=== PATIENT | female | born 1965 | race Caucasian/White ===

== ENCOUNTER 2024-07-22 18:08 | Emergency (ER) | payer OTHER, SELFPAY ==
[2024-07-22 18:20] VITALS: BP 116/77
[2024-07-22 18:33] LABS: % Basophils 0.7 % (0-2); % Eosinophils 2.1 % (0-6); % Immature Granulocytes 0.3 % (0-0.5); % Lymphocytes 19.3 % (20.5-51.1); % Monocytes 6.8 % (1.7-9.3); % Neutrophils 70.8 % (42.2-75.2); Absolute Basophils 0.1 10^3/uL (0-0.2); Absolute Eosinophils 0.2 10^3/uL (0-0.7); Absolute Lymphocytes 1.7 10^3/uL (1.2-3.4); Absolute Monocytes 0.6 10^3/uL (0.1-0.6); Absolute Neutrophils 6.4 10^3/uL (1.4-6.5); Hematocrit 37.5 % (37.0-47.0); Hemoglobin 12.2 g/dL (12.0-16.0); Mean Corp Hgb Conc. 32.5 g/dL (33.0-37.0); Mean Corpuscular Hgb 28.4 pg (27.0-31.0); Mean Corpuscular Volume 87.4 fL (81.0-99.0); Mean Platelet Volume 8.5 fL (7.4-10.4); Nucleated Red Blood Cells % 0 %; Platelet Count 268 10^3/uL (130-400); Red Blood Cell Count 4.29 10^6/uL (4.20-5.40); Red Cell Dist. Width 12.8 % (11.5-14.5)
[2024-07-22 18:43] LABS: Urine Albumin Negative (Neg - Trace); Urine Bilirubin Negative (Negative); Urine Character Clear (Clear); Urine Color Yellow; Urine Glucose Negative (Negative); Urine Ketone Negative (Negative); Urine Leukocyte 1+ (Negative); Urine Nitrite Negative (Negative); Urine Occult Blood Negative (Negative); Urine Urobilinogen Negative (Neg - 1+)
[2024-07-22 18:50] LABS: ALT (SGPT) 14 U/L (0-35); AST (SGOT) 19 U/L (14-36); Alkaline Phosphatase 81 U/L (38-126); Blood Urea Nitrogen 13 mg/dl (7-17); Calcium 8.9 mg/dl (8.4-10.2); Carbon Dioxide 27 mmol/L (22-30); Chloride 101 mmol/L (98-107); Glucose 159 mg/dl (70-99); Lipase 75 U/L (23-300); Potassium 4.2 mmol/L (3.5-5.1); Sodium 138 mmol/L (135-145); Total Bilirubin 0.4 mg/dl (0.2-1.3); eGFR > 60.00
[2024-07-22 18:54] LABS: Urine Bacteria Few (Negative); Urine Red Blood Cell 0-2 /HPF (0-2)
--- NOTE | 2024-07-22 19:48 | ED.GENMED ---
History of Present Illness
General
Chief Complaint: Flank Pain
Source: patient
Time Seen by Provider: 07/22/24 19:39
History of Present Illness
History of Present Illness:
This 59-year-old female presents to the emergency room complaining of right flank/thoracic pain. Pain began yesterday during the day. She does not recall any particular movement or event that caused the pain. She has had mild relief with
ibuprofen. She had more significant relief after taking a dose of oxycodone. She denies any urinary frequency or dysuria. She denies any chest pain or shortness of breath. There may have been some radiation of the pain around to the front of her
abdomen. No rash. Patient denies history of kidney stones. She has had her gallbladder removed.
Past History
Past History
ED Past Medical History: NIDDM and Other (Diverticulitis, sleep apnea, anxiety)
ED Past Surgical History: Cholecystectomy, and Gynecological
Social History
Tobacco: Former smoker
Alcohol: None
Drug: None
Living: with family
Phy Exam
Physical Exam
Physical Exam:
General: Awake, Alert, Oriented X3. No acute distress.
Vitals: unremarkable
Head: Atraumatic
Eyes: Pupils equal, EOMI
Throat: Airway intact, no exudates
Neck: Trachea midline
Lungs: Clear and equal b/l
Heart: Regular rate, no murmurs
Abd: Soft, Nontender, No pulsatile mass
Back: Mild CVA tenderness to percussion on the right
Neuro: Nonfocal
Skin: Warm, dry, no rash
Extremities: pulses equal b/l, no edema
Course
Orders/Labs/Results
Orders:
Orders
07/22/24 18:28
Complete Blood Count/With Diff Urgent
Comprehensive Metabolic Panel Urgent
Lipase Urgent
Urinalysis Reflex To Culture Urgent
Date Specimen was Collected: 07/22/24
Time Specimen was Collected: 18:24
Urine Microscopic Reflex Cult Urgent
Urine Culture Urgent
ARIANNA Source: U
Specimen Description:
Date Specimen was Collected: 07/22/24
Time Specimen was Collected: 18:24
07/22/24 19:47
CT Abd/pel Without Iv Or Oral Urgent
Comment:
Reason For Exam: right flank pain
07/22/24 20:45
Acetaminophen [Tylenol] 1,000 mg PO NOW STA
07/22/24 21:33
Cefdinir [Omnicef] 300 mg PO NOW STA
MetroNIDAZOLE [Flagyl] 500 mg PO NOW STA
07/22/24 21:40
Oxycodone [Roxicodone] 5 mg PO NOW STA
Abnormal Lab Results
07/22/24
18:28
MCHC 32.5 L g/dL
(33.0-37.0)
Lymphocytes % 19.3 L %
(20.5-51.1)
Creatinine 0.4 L mg/dL
(0.6-1.0)
Glucose 159 H mg/dl
(70-99)
Leukocyte Esterase Rfl 1+ A
(Negative)
Urine Bacteria (Reflex) Few A
(Negative)
07/22/24 18:28
07/22/24 18:28
Vital Signs
Initial and Last Documented VS:
Initial Vital Signs
Temp Pulse Resp BP Pulse Ox
98.0 F 74 16 116/77 99
07/22/24 18:20 07/22/24 18:20 07/22/24 18:20 07/22/24 18:20 07/22/24 18:20
Last Documented Vital Signs
Temp Pulse Resp BP Pulse Ox
98.0 F 66 16 149/69 98
07/22/24 18:20 07/22/24 21:38 07/22/24 21:38 07/22/24 21:38 07/22/24 21:38
MDM/Problems Addressed
Differential Diagnosis Includes:
Kidney stone, UTI, musculoskeletal back pain
MDM/Problems Addressed:
Patient presents with back/flank pain. Urine does not show evidence of UTI. A CT was obtained to look for kidney stone. No stone was noted but she was found to have diverticulitis by radiology. Will cover her with antibiotics. Patient stable
for discharge home follow-up with her GI doctor.
*Radiology
Radiology exam reviewed: radiology read reviewed
*Pulse Oximetry
Patient hypoxic: no
*Critical Care Note
Total Time (30-74mins, 75-104mins- exclusive of procedures): Not Applicable
ED Attending Note
-
Portions of this chart may have been created with voice recognition software.� Occasional wrong word or��sound alike� substitutions may have occurred due to the inherent limitations of voice recognition software.
Discharge Plan
Departure
Patient Disposition: Home (Routine Discharge)
Date of Disposition: 07/22/24
Time of Disposition: 21:34
Patient with high blood pressure during this ER visit?: No
Condition: Good
Discharge Problem:
Diverticulitis of colon with perforation, Back pain
Instructions: Diverticulitis
Prescriptions:
New
cefdinir 300 mg capsule
300 mg PO BID Qty: 20 0RF
metronidazole 500 mg tablet
500 mg PO TID Qty: 30 0RF
oxycodone 5 mg capsule
5 mg PO Q6H PRN (Reason: Pain) Qty: 10 0RF
No Action
glyburide-metformin 1.25 MG/250 MG tablet
1 tab PO BID
Patient Comments:
11/15/22- has not taken since she was on ozempic but patient stopped ozempic on 11/11/22 and will not contuine ozempic but will restrat glyburide/metformin
aspirin 81 mg Tablet,Delayed Release (Dr/Ec)
81 mg PO DAILY
alprazolam [Xanax] 0.25 mg Tablet
0.25 mg PO QPMPRN PRN (Reason: anxeity)
cholecalciferol (vitamin D3) [Vitamin D3] 25 mcg (1,000 unit) Tablet
25 mcg PO DAILY
magnesium oxide 400 mg magnesium Tablet
400 mg PO DAILY
Centrum Chewables 8 mg-400 mcg- 10 mcg Tablet,Chewable
1 tab PO DAILY
fluticasone furoate-vilanterol 100-25 mcg/dose Blister With Device
1 inh INHALATION DAILY
oxycodone
5 mg PO Q4H MDD 6 PRN (Reason: Moderate pain)
glycerin (adult) [Fleet Glycerin (Adult)] Suppository
1 supp PA DAILYPRN PRN (Reason: constipation) Qty: 12 0RF
magnesium hydroxide [Milk of Magnesia] 400 mg/5 mL suspension
15 ml PO HS PRN (Reason: constipation) Qty: 355 0RF
docusate sodium [Colace] 100 mg capsule
100 mg PO BID
cefdinir 300 mg capsule
300 mg PO BID Qty: 10 0RF
metronidazole 500 mg tablet
500 mg PO TID Qty: 14 0RF
Referrals:
Dary Kendall MD [Family Provider] -
Activity Restrictions/Additional Instructions:
Please follow up with your gi doctor. Return if you are not feeling better in 48 hours or begin feeling much worse.
Interventions
Interventions:
*Risk Screen - Suicide Last Done: 07/22/24 18:20
*General Assessment Last Done: 07/22/24 20:21
*Neglect/Abuse Screening Last Done: 07/22/24 20:21
ED- Fall Risk Assessment Last Done: 07/22/24 20:21
*ED COVID-19 Vaccine History Last Done: 07/22/24 20:21
*Nursing Disposition Last Done: 07/22/24 21:50
HE-Obiqyp-Kuxvbpvbkp Assessment Last Done: 07/22/24 20:23
ED-Female Genitourinary Assessment Last Done: 07/22/24 20:23
Discharge Date and Time
Discharge Date/Time: 07/22/24 21:50
Print Language: OCCITAN
[2024-07-22 20:21] VITALS: BMI 33.5
[2024-07-22] MEDS: TYLENOL 1000 MG PO (21:22)
[2024-07-22] MEDS: OMNICEF 300 MG PO (21:37)
[2024-07-22] MEDS: FLAGYL 500 MG PO (21:37)
[2024-07-22 21:38] VITALS: BP 149/69
[2024-07-22] MEDS: ROXICODONE 5 MG PO (21:43)
== END 2024-07-22 21:50 | disposition home or self-care (01) ==
LOC: EMR 18:08
PROVIDERS: Emergency Medicine; EMERGENCY PHYSICIAN Emergency Medicine; FAMILY PHYSICIAN Internal Medicine
DX: K57.20 Diverticulitis of large intestine with perforation and abscess without bleeding (principal); E11.9 Type 2 diabetes mellitus without complications; G47.30 Sleep apnea, unspecified; F41.9 Anxiety disorder, unspecified; Z87.891 Personal history of nicotine dependence; Z90.49 Acquired absence of other specified parts of digestive tract
CPT/HCPCS: 99284; 74176; 80053; 81003; 81015; 83690; 85025; 87077; 87086; 87186

== ENCOUNTER 2025-02-03 06:06 | Inpatient (IN) | payer OTHER, SELFPAY ==
[2025-02-02 20:40] VITALS: BP 155/64
[2025-02-02 23:42] VITALS: BP 142/60
[2025-02-02 23:44] VITALS: BMI 33.2
[2025-02-03] VITALS (9 sets, daily range): BP systolic 114–146; BP diastolic 52–76
[2025-02-03 00:04] LABS: Hematocrit 41.8 % (37.0-47.0); Hemoglobin 13.8 g/dL (12.0-16.0); Mean Corp Hgb Conc. 33.0 g/dL (33.0-37.0); Mean Corpuscular Volume 85.7 fL (81.0-99.0); Nucleated Red Blood Cells % 0 %; Platelet Count 293 10^3/uL (130-400); Red Cell Dist. Width 13.1 % (11.5-14.5)
[2025-02-03 01:12] LABS: ALT (SGPT) 13 U/L (0-35); AST (SGOT) 20 U/L (14-36); Albumin 4.4 g/dl (3.5-5.0); Alkaline Phosphatase 77 U/L (38-126); Blood Urea Nitrogen 9 mg/dl (7-17); Calcium 8.9 mg/dl (8.4-10.2); Carbon Dioxide 27 mmol/L (22-30); Chloride 102 mmol/L (98-107); Estimated Creatinine Clearance 121 ml/min; Glucose 157 mg/dl (70-99); Potassium 4.3 mmol/L (3.5-5.1); Sodium 137 mmol/L (135-145); Total Protein 7.5 g/dl (6.3-8.2); eGFR > 60.00
--- NOTE | 2025-02-03 01:14 | ED.GENMED ---
History of Present Illness
General
Chief Complaint: Abdominal Pain
Source: patient
Exam Limitations: none
Time Seen by Provider: 02/03/25 00:45
Nursing documentation reviewed up to this point in time: agreed with
History of Present Illness
History of Present Illness:
Note:
CHIEF COMPLAINT(S)
Left lower quadrant abdominal pain and hematochezia.
HISTORY OF PRESENT ILLNESS
The patient is a 38-year-old individual with a past medical history of diverticulitis, asthma, diabetes, anxiety, presenting with left-sided abdominal pain that has been severe enough to require analgesics over the past two days. The patient reports
a history of bright red blood in the stool mixed with mucus, which has transitioned to a maroon color. This bleeding is primarily associated with bowel movements. The symptoms initially started last year, receded, but have since recurred, with
intermittent sharp pain during defecation described as contraction-like. They also experience bladder pressure and frequent bowel movements up to six times a day, although without diarrhea. The patient recently self-initiated metronidazole
treatment, taking two doses yesterday and one dose this morning, having experienced similar symptoms in the past requiring antibiotics. She denies fevers or chills, chest pain, shortness of breath.
CHRONIC MEDICAL CONDITIONS SIGNIFICANTLY AFFECTING CARE
- History of diverticulitis
ALLERGIES
Penicillin (rash), ciprofloxacin (unspecified reaction)
REVIEW OF SYSTEMS
- Gastrointestinal: Reports bright red blood in stool mixed with mucus, significant abdominal pain, frequent but non-diarrheal bowel movements, pencil-thin stool, and recent weight loss due to decreased appetite.
- General: No fever or recent significant dietary intake beyond pudding, yogurt, and a peach due to pain.
- Integumentary: History of rash with penicillin use.
- Respiratory: No respiratory symptoms reported.
PHYSICAL EXAM
- Nursing notes reviewed and vital signs reviewed.
General: Patient is well appearing and in no acute distress; non-toxic
Skin: Warm and dry, no rashes or lesions
Head: Normocephalic, atraumatic
Eyes: Sclera non-icteric. EOMs intact.
Cardiac: Regular rate and rhythm, no murmurs
Pulm: Normal respiratory effort
Abdomen: LLQ tenderness with no rebound tenderness no guarding
Rectal: Deferred
Neuro: CN II-XII intact, no focal neurologic deficits.
Psychiatric: Appropriate mood and affect.
PROBLEM LIST
Acute:
- Left lower quadrant abdominal pain
- Hematochezia
PLAN
1. Administer antiemetic medication for nausea and pain.
2. Conduct a computed tomography scan to evaluate the abdominal pain and rule out complications such as perforation.
3. Monitor the patient for symptoms of severe diverticulitis exacerbation.
4. Continued observation and supportive care, including fluid administration.
DIFFERENTIAL DIAGNOSIS
The Differential Diagnosis includes, in no particular order and is not limited to:
1. Diverticulitis
2. Colorectal cancer
3. Inflammatory bowel disease
4. Gastrointestinal bleeding secondary to peptic ulcer
5. Ischemic colitis
6. Hemorrhoids
7. Anal fissure
8. Infectious colitis
9. Constipation-induced bowel obstruction
10. Polyps with secondary bleeding
CHART REVIEW
Reviewed discharge summary from 01/15/23, patient seen for reoccurrence of sigma diverticulitis, review discharge summary from 11/09/22, patient seen for pain. Fever and nausea was admitted for acute diverticulitis with micro perforation.
MDM/DISPOSITION
59-year-old female with a past history of reoccurring, sigmoid diverticulitis presents emergency department with concerns of bloody stools and left lower quadrant ab pain. She went for CAT scan, which revealed acute sigma diverticulitis with
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 Presented case to Dr. Gallego from colorectal surgery. For further opinion on management. Plan is to admit patient for IV antibiotics and have patient be evaluated by colorectal surgery. Patient referred for mission.
ED attending aware.
Past History
Past History
ED Past Medical History: NIDDM and Other (Diverticulitis, sleep apnea, anxiety)
ED Past Surgical History: Cholecystectomy, and Gynecological
Social History
Tobacco: Former smoker
Alcohol: None
Drug: None
Living: with family
Phy Exam
Physical Exam
Physical Exam:
see hpi
Course
Orders/Labs/Results
Orders:
Orders
02/02/25 23:41
Complete Blood Count/With Diff Urgent
02/03/25 00:35
Comprehensive Metabolic Panel Urgent
Comment: REDRAW
02/03/25 01:24
CT Abd/pelvis W Iv Cont Urgent
Comment:
Reason For Exam: LLQ pain
0.9% Sodium Chloride 1000 ml [Nss] 1,000 ml IV BOLUS
Ketorolac [Toradol] 15 mg IV NOW STA
Ondansetron Injectable [Zofran] 4 mg IV NOW STA
02/03/25 03:21
MetroNIDAZOLE 500 MG/100 ML [Flagyl 500 mg] 100 ml IV NOW
02/03/25 03:45
HYDROmorphone [Dilaudid] 0.5 mg IV NOW STA
02/03/25 03:53
Ondansetron Injectable [Zofran] 4 mg .ROUTE .STK-MED ONE
Ondansetron Injectable [Zofran] 4 mg IV NOW STA
02/03/25 05:32
Admit/Transfer Patient As Directed
Co-Sign Provider:
Level of Care: Inpatient admission
Assign to:: Medical/Surgical
Physician / Group: Kulwinder
Diagnosis: Acute Diverticulitis
Reason for Hospitalization: Acute Diverticulitis
Expected length of stay greater than two midnights?: Yes
ELOS- Estimated Length of Stay in days: 3
I certify the patient meets the requirements for IP care: Yes
PRN Pain Medication Management As Directed
May give lesser potent ordered pain med per pt: Yes
preference::
Protocol:: Medication orders for pain may be administered in a
manner that supports deferring to patient preference
when the pt is:
- Requesting an ordered lesser potent pain medication.
Least to most potent pain medications are defined
as: acetaminophen < NSAID < tramadol < opioids
(morphine, oxycodone, hydromorphone).
- Requesting a lesser dose of the same medication IF
ORDERED.
- Requesting a less intrusive route of administration
if both routes are prescribed by the provider (PO <
IV).
02/03/25 05:33
Code Status As Directed
Resuscitation Status: Full Code
02/03/25 Breakfast
NPO
Allow oral meds: Yes
Allow clear liquids: Sips of Clears
02/03/25 07:37
Acetaminophen [Tylenol] 650 mg PO Q4HPRN PRN
Albuterol Nebs [Ventolin Nebules] 2.5 mg INH R Q4HPRN PRN
Alprazolam [Xanax] 0.25 mg PO QPMPRN PRN anxeity
Dextrose 50%-Water [Dextrose 50% Syringe] 12.5 grams IV [id number] PRN
Glucagon [GlucaGen] 1 mg IM PRN PRN
HYDROmorphone [Dilaudid] 0.5 mg IV Q4HPRN PRN
Ketorolac [Toradol] 10 mg IV Q6HPRN PRN
MetroNIDAZOLE 500 MG/100 ML [Flagyl 500 mg] 100 ml IV Q12H
Ondansetron Injectable [Zofran] 4 mg IV Q6HPRN PRN
02/03/25 07:37
ColoRectal Surgery Consult Routine
Consulting Provider: Nahun Gallego
Was physician already notified: Yes
Reason for consult: Complicated Diverticulitis
Activity As Directed
Activity Level: Ambulate
Bedside Glucose Monitoring As Directed
Frequency: AC&HS
Additional Instructions:: Change to q6h if pt on TPN, tube feeding or not eating
I/O [Intake/ Output] As Directed
Frequency: Per unit guidelines
Pneumatic Compression Sleeves As Directed
Type: Knee high
Vital Signs As Directed
Frequency: Per unit guidelines
Weight As Directed
Frequency: Daily
Oxygen Therapy [O2 Therapy] [RESP] Routine
Titrate/Wean O2 to maintain O2 sat greater than (%): 94
DX Deep Vein Thrombosis Video Routine
02/03/25 10:00
Lactated Ringers [Lr] 1,000 ml IV 100 mls/hr
02/03/25 11:30
Insulin Aspart Corrective Low [Novolog Flexpen-Low Resistance] See Protocol SC AC
02/03/25 20:00
Budesonide/Formoterol 80/4.5 [Symbicort 80/4.5 Mcg Inhaler] 2 puff INH R BID
02/04/25 06:00
Basic Metabolic Panel IN AM
Complete Blood Count/No Diff IN AM
Glycohemoglobin (HgbA1c) IN AM
Abnormal Lab Results
02/02/25 02/03/25
23:41 00:35
Abs Immat Gran (auto) 0.1 H 10^3/uL
(0-0.05)
Absolute Neuts (auto) 7.2 H 10^3/uL
(1.4-6.5)
Absolute Monos (auto) 0.8 H 10^3/uL
(0.1-0.6)
Creatinine 0.5 L mg/dL
(0.6-1.0)
Glucose 157 H mg/dl
(70-99)
02/02/25 23:41
02/03/25 00:35
Vital Signs
Initial and Last Documented VS:
Initial Vital Signs
Temp Pulse Resp BP Pulse Ox
98.5 F 75 16 155/64 99
02/02/25 20:40 02/02/25 20:40 02/02/25 20:40 02/02/25 20:40 02/02/25 20:40
Last Documented Vital Signs
Temp Pulse Resp BP Pulse Ox
98.5 F 61 16 118/76 99
02/02/25 20:40 02/03/25 09:06 02/03/25 09:06 02/03/25 08:02 02/03/25 08:02
*Pulse Oximetry
SaO2: 99
Oxygen Mode of Delivery: Room air
Patient hypoxic: no
*Critical Care Note
Total Time (30-74mins, 75-104mins- exclusive of procedures): Not Applicable
ED Attending Note
-
Portions of this chart may have been created with voice recognition software.� Occasional wrong word or��sound alike� substitutions may have occurred due to the inherent limitations of voice recognition software.
Discharge Plan
Departure
Patient Disposition: Admit
Date of Disposition: 02/03/25
Time of Disposition: 03:24
Admit to: Med/Surg
Presentation/result/management discussed w/ accepting MD/DO: Hospitalist
Patient with high blood pressure during this ER visit?: Yes
Condition: Good
Discharge Problem:
Acute diverticulitis
Interventions
Interventions:
*Risk Screen - Suicide Last Done: 02/02/25 20:40
*General Assessment Last Done: 02/02/25 20:40
*Neglect/Abuse Screening Last Done: 02/02/25 20:40
*ED- Fall Risk Assessment Last Done: 02/02/25 20:40
*ED COVID-19 Vaccine History Last Done: 02/02/25 23:47
XN-Drabwq-Ujyrzipbpm Assessment Last Done: 02/03/25 04:00
[2025-02-03] MEDS: ZOFRAN 4 MG IV ×3 (01:47→16:27)
[2025-02-03] MEDS: NSS 1000 IV (01:47)
[2025-02-03] MEDS: TORADOL 15 MG IV (01:49)
[2025-02-03] MEDS: FLAGYL 500 MG 100 IV ×3 (03:48→23:57)
[2025-02-03] MEDS: DILAUDID 0.5 MG IV ×2 (03:48→15:27)
--- NOTE | 2025-02-03 05:36 | HPS.HSE ---
Family Physician
-
Family Physician: Dary Kendall MD
Chief Complaint
-
Abd Pain
History of Present Illness
Patient is a 59y F with PMH significant for DM-II, asthma and recurrent sigmoid diverticulitis who presents to ED complaining of lower abdominal pain. Patient reports multiple prior episodes of diverticulitis. Has discussed potential surgical
intervention in the past. Patient reports issues with intermittent BRBPR in small volumes over the past few weeks. Over the past several days she has had pain with defecation and lower abdominal pain. Pain seems to improve somewhat after bowel
movement. No fevers / chills. No N/V. She reports about 6 bowel movements per day of widely varying caliber and volume.
She had more severe pain this evening and presented to the ED for further evaluation.
Patient denies any vaginal discharge, bleeding, stool, etc.
Medical History
Past Medical History
Past Medical History: Reports Other
Additional Past Medical History:
DM-II
UMA not on CPAP
Recurrent Sigmoid Diverticulitis
Obesity
Asthma
Past Surgical History: Reports Other
Additional Past Surgical History:
Cholecystectomy
Hysterectomy
Social History
Tobacco: Former Smoker (Quit smoking many years ago.)
Alcohol: None
Drug: None
Family History
Family History: Not pertinent
Allergies / Home Medications
Allergies reflects when Allergies were last updated in [facility].
Home Medications with original date entered in [facility]
Allergy/Medication List:
Allergies
Allergy/AdvReac Type Severity Reaction Status Date / Time
ciprofloxacin (From Cipro) Allergy Unknown Verified 07/22/24 18:23
levofloxacin (From Levaquin) Allergy palpitation Verified 07/22/24 18:23
s
Penicillins Allergy rash as a Verified 07/22/24 18:23
child;
tolerated
ceftriaxone
& cefdinir
Home Medications
glyburide 1.25 mg-metformin 250 mg tablet 1 tab PO BID Diabetes 08/03/19
alprazolam 0.25 mg tablet (Xanax) 0.25 mg PO QPMPRN PRN anxeity 11/15/22
cholecalciferol (vitamin D3) 25 mcg (1,000 unit) tablet (Vitamin D3) 25 mcg PO DAILY Supplement 11/15/22
fluticasone furoate 100 mcg-vilanterol 25 mcg/dose inhalation powder 1 inh inhalation DAILY Lung/breathing issues 11/15/22
magnesium oxide 400 mg PO DAILY Supplement 11/15/22
wcjzauck-dldernpp-pyon 8 mg-folic ac 400 mcg-vit K 10 mcg chew tablet (Centrum Chewables) 1 tab PO DAILY Supplement 11/15/22
glycerin (adult) (Fleet Glycerin (Adult) rectal suppository) 1 supp DC DAILYPRN PRN constipation #12 ea 11/16/22
magnesium hydroxide 400 mg/5 mL oral suspension (Milk of Magnesia) 15 ml PO HS PRN constipation #355 mL 11/16/22
oxycodone 5 mg capsule 5 mg PO Q6H PRN Pain #10 caps 07/22/24
Review of Systems
-
History Source: Patient
A 12 point ROS was completed and negative except as noted: Yes
Constitutional: Reports Fatigue; Denies Fever or Chills
Respiratory: Denies Cough or Trouble Breathing
Cardiac: Denies Chest Pain or Palpitations
Abdomen/GI: Reports Abdominal Pain and Bloody Stools; Denies Nausea or Vomiting
: Denies Dysuria or Frequency
Musculoskeletal: Denies Joint Pain or Edema
Neurological: Denies Dizzy or Headache
Physical Exam
Vital Signs
Vital Signs
Temp Pulse Resp BP Pulse Ox
98.5 F 75 16 126/63 96
02/02/25 20:40 02/02/25 20:40 02/02/25 20:40 02/03/25 03:00 02/03/25 03:00
Physical Exam
General: Other (59y F in no acute distress.)
HEENT: Moist mucous membranes, PERRLA and Other (Thick neck.)
Respiratory: Clear; No Wheezes, Rales or Rhonchi
Cardiac: S1/S2 and Regular Rhythm; No Murmur
GI: Soft, Non Distended, Normal Bowel Sounds and Other (Suprapubic tenderness without rebound / guarding.)
Musculoskeletal: No Clubbing, No Cyanosis and No Edema
Neuro: AO x 3
Laboratory Results
-
02/02/25 23:41
02/03/25 00:35
Laboratory Results
Total Bilirubin 0.8 mg/dl (0.2-1.3) 02/03/25 00:35
AST 20 U/L (14-36) 02/03/25 00:35
ALT 13 U/L (0-35) 02/03/25 00:35
Alkaline Phosphatase 77 U/L (38-126) 02/03/25 00:35
Impression/Plan
-
A/P: Patient is a 59y F with PMH significant for DM-II, asthma and obesity who presents to ED complaining of abdominal pain.
Acute Diverticulitis +/- Colovaginal Fistula
- Admit for further evaluation and treatment.
- IV abx with ceftriaxone / metronidazole given allergies.
- Colorectal Surgery evaluation for additional recommendations.
- No vaginal stooling, discharge, etc.
- Follow fever curve, pain, etc.
- Supportive care with IVFs, pain control, etc.
DM-II
- Stable. Hold PO medications.
- Follow glucose and cover with SSI as needed.
- Update A1C.
Asthma without Acute Exacerbation
- Stable. Continue home inhaler regimen.
- Albuterol PRN.
Obesity due to excess calories
- Affects all aspects of care.
- Encourage healthy diet and increased activity with goal of weight loss.
DVT Prophylaxis: SCDs
Code Status: Full
--- NOTE | 2025-02-03 07:17 | W.PN.HOSP.TC ---
Addendum entered and electronically signed by Ruy Reddy MD 02/04/25 13:40:
Acute diverticulitis
- IV antibiotics with Rocephin and Flagyl
- Clear liquid diet
- Advance as tolerated
- Colorectal surgery following
Diabetes
- Accu-Chek
- Sliding scale
- Goal blood glucose 140-180
- Carb controlled diet
Original Note:
Today's Communication/Plan
-
- Continue antibiotics
- IV fluids, pain control
- Advance diet to clear liquids
- Overnight pulse oximetry measurement
Assessment / Plan
Assessment / Plan
Patient is a 59y F with PMH significant for recurrent diverticulitis, DM-II, asthma, UMA, obesity who p/w LLQ abdominal pain most concerning for acute diverticulitis
#Acute Diverticulitis c/b intramural abscess and possible developing colovaginal fistula
- CT A/P read is acute diverticulitis and developing colovaginal fistula
- Colorectal surgery consulted and recommend nonoperative management at this time
- IV abx with ceftriaxone 1000mg q24h / metronidazole 500mg q12h
- IV Fluids: LR 100 mL/hr q10h
- Pain control: acetaminophen 650mg PO q4h prn, toradol 10mg IV q6h prn, dilaudid 0.5mg iv q4h prn
- DVT ppx: SCDs for now
- Diet: clear liquids diet, and patient can self-advance diet to full liquid, and then onto low residue diet as tolerated
# PMH of UMA
- order overnight pulse oximetry.
- patient reports that she does not use CPAP
# DM-II
- Stable. Hold PO medications.
- Follow glucose and cover with SSI as needed.
- Update A1C.
# Asthma without Acute Exacerbation
- Stable. Continue home inhaler regimen.
- Albuterol PRN.
# Obesity due to excess calories
- Affects all aspects of care.
- Encourage healthy diet and increased activity with goal of weight loss.
DVT Prophylaxis: SCDs
Diet: clear liquids diet, and patient can self-advance diet to full liquid, and then onto low residue diet as tolerated
Code Status: Full
Anticipated Discharge: > 48 hours
Subjective/Interval History
-
Date of Service: February 03, 2025
Patient is 59 yo F with PMH of recurrent sigmoid diverticulitis, DM-II, asthma who came in because of LLQ pain that did not resolve. Over the past several months, she reports that she experiences abdominal pain and then has a bowel movement of
mucoid/bloody/maroon stool that resolves the pain. However, a few days ago, she experienced LLQ and lower middle quadrant pain that has not resolved after having a bowel movement. For that reason, she presented to the hospital
This morning, she is feeling better. She was started on antibiotics. Colorectal surgery has been consulted.
Objective Data
-
Labs:
Laboratory Results
02/02/25 02/03/25
23:41 00:35
WBC 10.6
Hgb 13.8
Hct 41.8
Plt Count 293
Sodium Cancelled 137
Potassium Cancelled 4.3
Chloride Cancelled 102
Carbon Dioxide Cancelled 27
BUN Cancelled 9
Creatinine Cancelled 0.5 L
Glucose Cancelled 157 H
Calcium Cancelled 8.9
Total Bilirubin Cancelled 0.8
AST Cancelled 20
ALT Cancelled 13
Alkaline Phosphatase Cancelled 77
CT AP with IV contrast
INDICATION: 59-year-old with left lower quadrant abdominal pain. History of diverticulitis.
TECHNIQUE: CT examination of the abdomen and pelvis was performed following the administration of nonionic intravenous contrast. Oral contrast was not administered. Coronal and sagittal reformatted images were obtained. Automatic exposure control
radiation dose reduction technology was utilized.
COMPARISON: CT from 07/22/2024
FINDINGS:
LOWER CHEST: Lung bases clear. No pleural effusion. Small hiatal hernia.
LIVER: Within normal limits.
GALLBLADDER: Surgically absent.
BILE DUCTS: Within normal limits.
PANCREAS: Within normal limits.
SPLEEN: Within normal limits.
ADRENALS: Within normal limits.
KIDNEYS/URETERS: Within normal limits.
BOWEL: No obstruction. Small duodenal diverticulum. Unremarkable terminal ileum and appendix. Moderate amount of stool within the colon with moderate sigmoid diverticulosis. The distal sigmoid is inflamed with wall thickening and pericolonic
inflammatory stranding. There is a small intramural abscess measuring 19 mm (image 72, series 201). Inflammatory/enhancing soft tissue abuts the vaginal cuff with lack of a clear fat plane raising concern for developing colovaginal fistula.
PERITONEUM: No ascites or free air.
REPRODUCTIVE: See above. No gas identified within the vagina. No pelvic free fluid. No free air.
BLADDER: Within normal limits.
VESSELS: Non-aneurysmal abdominal aorta.
RETROPERITONEUM: No retroperitoneal or pelvic lymphadenopathy.
ABDOMINAL WALL: Within normal limits.
BONES: No suspicious lesions. Moderate central canal stenosis at L4-5. Partially imaged intramedullary sarah and cannulated screw within the left femoral head. Unchanged mild deformity involving the inferior endplate of L1.
IMPRESSION:
1. Acute diverticulitis of the distal sigmoid colon. Small intramural abscess measuring 19 mm. Inflammatory changes extend inferiorly and abuts the vaginal cuff raising concerning for developing colovaginal fistula.
2. Additional findings above.
A preliminary interpretation was provided by [facility] teleradiology service. The above report agrees with the initial interpretation.
Vital Signs:
Vital Signs
Temp Pulse Resp BP Pulse Ox
98.5 F 66 18 126/59 93
02/02/25 20:40 02/03/25 06:18 02/03/25 06:18 02/03/25 06:00 02/03/25 06:18
Review of Systems
-
History Source: Patient
Constitutional: Reports No Symptoms
EENT: Reports No Symptoms Reported
Respiratory: Reports No Symptoms
Cardiac: Reports No Symptoms
Abdomen/GI: Reports Abdominal Pain and Bloody Stools
Genitourinary: Reports No Symptoms
Musculoskeletal: Reports No Symptoms
Skin: Reports No Symptoms
Neuro: Reports No Symptoms
Physical Exam
-
General: No Apparent Distress
HEENT: Normocephalic and Atraumatic
Respiratory: Clear to Auscultation
Cardiac: Regular Rhythm and Murmur (1/6 systolic murmur loudest near right upper parasternal border)
GI: Tender (LLQ, lower middle quadrant)
Musculoskeletal: Other (no lower extremity edema on my exam)
Skin: Warm and Dry
Neuro: AO x 3
Psych: Calm
[2025-02-03] MEDS: ROCEPHIN 1000 MG IV (09:30)
[2025-02-03] MEDS: STERILE WATER FOR INJECTION 10 ML IV (09:31)
[2025-02-03] MEDS: FLUSH (NSS) 1 FLUSH IV (09:31)
[2025-02-03] MEDS: LR 1000 IV ×2 (09:31→20:04)
[2025-02-03] MEDS: FLUSH (NSS) 10 FLUSH IV (09:32)
[2025-02-03] MEDS: TORADOL 10 MG IV ×2 (09:36→22:21)
--- NOTE | 2025-02-03 09:50 | CON.CRS ---
Consultation
-
Date/Time Consultation Requested: 02/03/2025, 07:37
Date/Time Consultation Performed: 02/03/2025, 8:45
Requesting Provider: Terry Miramontes DO
Performing Provider: Yandel Llanos MD
Reason for Consultation: diverticulitis
Medical History
-
Chief Complaint: abdominal pain
History of Present Illness:
59-year-old female with a past medical history of sigmoid diverticulitis, presents to [facility] emergency department complaining of lower abdominal pain over the past several days. She has had intermittent cramping so the past several weeks
but it became constant in nature 2 days ago. She states she has noticed some blood in her stool mixed with mucus as well. Denies constipation or diarrhea. She does have some pressure urinating but no pain or blood when urinating. Denies any
vaginal discharge. She has had diverticulitis in the past and was admitted in 2022 due to [address] Gallego saw her in consultation. She was found to have sigmoid diverticulitis and was treated with IV antibiotics. She has been
admitted to [facility] in the past for diverticulitis and hospitalized 3 times before. Her last colonoscopy was by Dr. Angel in [facility] about 2 years ago which showed polyps.
In the ER her WBC is 10.6. She remains afebrile. CT of the abdomen and pelvis showed wall thickening of the sigmoid colon with possible colovaginal fistula concerning for complicated diverticulitis. Given these findings, we have been consulted
for surgical opinion.
Past Medical History
Past Medical History: Other (DM II, UMA, diverticulitis, obesity, asthma)
Past Surgical History: Cholecystectomy, and Gynecological (hysterectomy)
Social History
Tobacco: Former Smoker
Alcohol: None
Drug: None
Family History
Family History: Reviewed & Not Pertinent
Allergies / Home Medications
Allergy/AdvReac Type Severity Reaction Status Date / Time
ciprofloxacin (From Cipro) Allergy Unknown Verified 07/22/24 18:23
levofloxacin (From Levaquin) Allergy palpitation Verified 07/22/24 18:23
s
Penicillins Allergy rash as a Verified 07/22/24 18:23
child;
tolerated
ceftriaxone
& cefdinir
�Medication �Instructions �Recorded �Confirmed �Type
glyburide 1.25 mg-metformin 250 mg 1 tab PO BID Diabetes 08/03/19 02/03/25 History
tablet
alprazolam 0.25 mg tablet (Xanax) 0.25 mg PO HS 11/15/22 02/03/25 History
cholecalciferol (vitamin D3) 25 25 mcg PO DAILY Supplement 11/15/22 02/03/25 History
mcg (1,000 unit) tablet (Vitamin
D3)
fluticasone furoate 100 1 inh inhalation R DAILYPRN PRN SOB 11/15/22 02/03/25 History
mcg-vilanterol 25 mcg/dose
inhalation powder (Breo Ellipta)
magnesium oxide 400 mg PO DAILY Supplement 11/15/22 02/03/25 History
acetaminophen 325 mg tablet 650 mg PO Q6HPRN PRN MILD PAIN 02/03/25 02/03/25 History
(Tylenol)
oxycodone-acetaminophen 5 mg-325 1 tab PO DAILYPRN PRN SEVERE PAIN 02/03/25 02/03/25 History
mg tablet
therapeutic multivitamin 1 tab PO DAILY 02/03/25 02/03/25 History
Review of Systems
-
History Source: Patient
Abdomen/GI: Abdominal Pain and Bloody Stools
: Other (pressure while urinating)
A 10 point review of systems was completed, and was negative except as per HPI.
Physical Exam
Vital Signs
Temp 98.5 F 02/02/25 20:40
Pulse 61 02/03/25 09:06
Resp Rate 16 02/03/25 09:06
Blood pressure 118/76 02/03/25 08:02
SaO2 99 02/03/25 08:02
02/02/25 02/03/25 02/04/25
06:59 06:59 06:59
Actual Weight 99 kg
Body Mass Index (BMI) 33.2
Lab Results / Allergies
02/02/25 23:41
02/03/25 00:35
WBC 10.6 10^3/uL (4.8-10.8) 02/02/25 23:41
Hgb 13.8 g/dL (12.0-16.0) 02/02/25 23:41
Hct 41.8 % (37.0-47.0) 02/02/25 23:41
Plt Count 293 10^3/uL (130-400) 02/02/25 23:41
Abs Immat Gran (auto) 0.1 10^3/uL (0-0.05) H 02/02/25 23:41
Neutrophils % 68.5 % (42.2-75.2) 02/02/25 23:41
Allergy/AdvReac Type Severity Reaction Status Date / Time
ciprofloxacin (From Cipro) Allergy Unknown Verified 07/22/24 18:23
levofloxacin (From Levaquin) Allergy palpitation Verified 07/22/24 18:23
s
Penicillins Allergy rash as a Verified 07/22/24 18:23
child;
tolerated
ceftriaxone
& cefdinir
Physical Exam
General: Well Developed and No Apparent Distress
GI: Soft, Non Distended and Tender (mild suprapubic)
Skin: Warm and Dry
Neuro: AO x 3
Data Reviewed
-
CT Scan: Image Personally Visualized and interpreted, Report Reviewed by me, Discussed with Physician and Discussed with Patient
Labs: Labs Reviewed by me, Discussed with Physician and Discussed with Patient
Old Records: Reviewed
Assessment / Plan
-
Assessment: 59-year-old female with multiple attacks of diverticulitis in the past presents to [facility] with 2 days of abdominal pain and found to have sigmoid diverticulitis and a possible colovaginal fistula on CT
Plan:
- Continue n.p.o. with IV fluids
- Continue IV antibiotics
- No plans for surgery at this time
- Will need eventual colonoscopy
- Eventually will need to reassess the fistula in the future as the oral contrast did not make it down to that area of colon. This can be done as an outpatient after this hospitalization.
--- NOTE | 2025-02-03 10:19 | CM ---
CM reviewed chart and met with pt bedside in ED. Pt lives alone but has been staying with her parents to assist them. Their address is [address] [place], [place] [address] [place] [address].
Independent in ADLs, personal care and ambulation at baseline. Uses cane for ambulation. NO other DME.
Confirms prescription coverage.
No hx VN, has been to [facility] in past.
PCP: Dary Kendall
Pharmacy: [facility]
Anticipate discharge home, watch for needs.
[2025-02-03] MEDS: FLUSH (NSS) IV (11:21)
[2025-02-03 11:47] LABS: Glucose - Point of Care 154 mg/dl (70-99)
[2025-02-03 16:42] LABS: Glucose - Point of Care 148 mg/dl (70-99)
[2025-02-03] MEDS: NOVOLOG FLEXPEN-LOW RESISTANCE SC (16:45)
[2025-02-03 21:39] LABS: Glucose - Point of Care 123 mg/dl (70-99)
[2025-02-03] MEDS: XANAX 0.25 MG PO (22:13)
[2025-02-04] MEDS: LR 1000 IV ×2 (06:11→16:59)
[2025-02-04 06:12] VITALS: BMI 33.6
[2025-02-04 07:48] VITALS: BP 125/67
[2025-02-04 08:01] LABS: Glucose - Point of Care 128 mg/dl (70-99)
[2025-02-04] MEDS: NOVOLOG FLEXPEN-LOW RESISTANCE SC ×3 (08:03→16:58)
[2025-02-04 08:07] LABS: Hematocrit 34.7 % (37.0-47.0); Hemoglobin 11.3 g/dL (12.0-16.0); Mean Corp Hgb Conc. 32.6 g/dL (33.0-37.0); Mean Corpuscular Volume 87.4 fL (81.0-99.0); Platelet Count 255 10^3/uL (130-400); Red Cell Dist. Width 13.0 % (11.5-14.5)
--- NOTE | 2025-02-04 08:07 | W.PN.HOSP.TC ---
Addendum entered and electronically signed by Ruy Reddy MD 02/04/25 13:41:
Acute diverticulitis
- IV antibiotics with Rocephin and Flagyl
- Clear liquid diet
- Advance as tolerated
- Colorectal surgery following
- Outpatient elective colectomy with Colorectal surgery follow up/eval
Diabetes
- Accu-Chek
- Sliding scale
- Goal blood glucose 140-180
- Carb controlled diet
Original Note:
Today's Communication/Plan
-
- continue abx
- full liquid diet, can advance as tolerated
Assessment / Plan
Assessment / Plan
Patient is a 59y F with PMH significant for recurrent diverticulitis, DM-II, asthma, UMA, obesity who p/w LLQ abdominal pain most concerning for acute diverticulitis
#Acute Diverticulitis c/b intramural abscess and possible developing colovaginal fistula
- CT A/P read is acute diverticulitis and developing colovaginal fistula
- Colorectal surgery consulted and recommend nonoperative management at this time
- VS stable.
- Continue IV abx with ceftriaxone 1000mg q24h / metronidazole 500mg q12h (day 2 of antibiotics, started 02/03 around midnight).
- IV Fluids: LR 100 mL/hr q10h
- Pain control: acetaminophen 650mg PO q4h prn, toradol 10mg IV q6h prn, dilaudid 0.5mg iv q4h prn. last dilaudid was 3pm yesterday.. toradol at 10pm last night.
- DVT ppx: SCDs for now
- Diet: per CRS, advanced to full liquid diet.
- Will need outpatient colonoscopy after discharge and assessment of the possible developing fistula
# PMH of UMA
- overnight pulse oximetry was not done. she denies recalling any apneic events.
- patient reports that she does not use CPAP at home
# DM-II
- Stable. Hold PO medications.
- Follow glucose and cover with SSI as needed.
- Update A1C.
# Asthma without Acute Exacerbation
- Stable. Continue home inhaler regimen.
- Albuterol PRN.
# Obesity due to excess calories
- Affects all aspects of care.
- Encourage healthy diet and increased activity with goal of weight loss.
DVT Prophylaxis: SCDs. Colorectal surgery recommended lovenox ppx, but SCDs are ordered
Diet: full liquids diet, and patient can self-advance diet to low residue diet as tolerated
Code Status: Full
Anticipated Discharge: 24 - 48 hours
Subjective/Interval History
-
Date of Service: February 04, 2025
had bowel movements, no blood that she can see. feels that her abdominal pain is improving.
advanced her diet, feels tolerating well.
overnight, denies any apneic episodes, reports that she did not have continuous pulsox monitoring
Objective Data
-
Labs:
Laboratory Results
02/04/25
06:52
WBC 7.0
Hgb 11.3 L
Hct 34.7 L
Plt Count 255
Sodium Pending
Potassium Pending
Chloride Pending
Carbon Dioxide Pending
BUN Pending
Creatinine Pending
Glucose Pending
Calcium Pending
Vital Signs:
Vital Signs
Temp Pulse Resp BP Pulse Ox
97.6 F 61 14 125/67 100
02/04/25 07:48 02/04/25 07:48 02/04/25 07:48 02/04/25 07:48 02/04/25 07:48
Review of Systems
-
History Source: Patient
EENT: Reports No Symptoms Reported
Respiratory: Reports No Symptoms
Cardiac: Reports No Symptoms
Abdomen/GI: Reports Abdominal Pain (improved)
Musculoskeletal: Reports No Symptoms
Skin: Reports No Symptoms
Neuro: Reports No Symptoms
Physical Exam
-
General: No Apparent Distress
HEENT: Normocephalic and Atraumatic
Respiratory: Clear to Auscultation
GI: Other (improved tenderness to palpation in LLQ)
Musculoskeletal: Other (trace REINALDO)
Skin: Warm
Neuro: Awake and Alert
Psych: Calm
[2025-02-04 08:12] LABS: Blood Urea Nitrogen 6 mg/dl (7-17); Calcium 8.3 mg/dl (8.4-10.2); Carbon Dioxide 28 mmol/L (22-30); Chloride 107 mmol/L (98-107); Estimated Creatinine Clearance 122 ml/min; Glucose 121 mg/dl (70-99); Potassium 4.4 mmol/L (3.5-5.1); Sodium 139 mmol/L (135-145); eGFR > 60.00
[2025-02-04] MEDS: FLUSH (NSS) 1 FLUSH IV (09:17)
[2025-02-04] MEDS: FLUSH (NSS) 10 FLUSH IV (09:18)
[2025-02-04] MEDS: STERILE WATER FOR INJECTION 10 ML IV (09:19)
[2025-02-04] MEDS: ROCEPHIN 1000 MG IV (09:19)
[2025-02-04] MEDS: TORADOL 10 MG IV ×2 (09:19→16:58)
[2025-02-04] MEDS: FLUSH (NSS) IV (09:29)
[2025-02-04 09:44] LABS: Glycohemoglobin (HgbA1c) 7.4 % (4.0-5.6)
--- NOTE | 2025-02-04 10:28 | W.PN.CRS1 ---
Today's Communication / Plan
-
fulls
continue IV antibiotics
no plans for surgery
Assessment/Plan
-
Assessment: 59-year-old female with multiple attacks of diverticulitis in the past presents to [facility] with 2 days of abdominal pain and found to have sigmoid diverticulitis and a possible colovaginal fistula on CT
Plan:
- Advance to full liquids. Okay for low residue diet later if tolerates fulls.
- Continue IV antibiotics
- No plans for surgery at this time
- Will need eventual colonoscopy
- Eventually will need to reassess the fistula in the future as the oral contrast did not make it down to that area of colon. This can be done as an outpatient after this hospitalization.
- OOB as tolerated
Subjective Data
Subjective Data
Date of Service: February 04, 2025
Patient states she is feeling better today. She denies nausea or vomiting. She had a bowel movement yesterday. She is hungry.
Objective Data
-
Vital Signs
Temp Pulse Resp BP Pulse Ox
97.6 F 61 14 125/67 100
02/04/25 07:48 02/04/25 07:48 02/04/25 07:48 02/04/25 07:48 02/04/25 07:48
Intake & Output
02/03/25 02/04/25 02/05/25
06:59 06:59 06:59
Other:
Number of approximated MODERATE 1
amounts of urine
Lab Results
02/04/25 06:52
02/04/25 06:52
Physical Exam
-
General: No Acute Distress and AOx3
Abdomen: Soft, Non Distended and Tender (mild suprapubic)
[2025-02-04] MEDS: FLAGYL 500 MG 100 IV ×2 (11:17→23:44)
--- NOTE | 2025-02-04 11:26 | CM ---
Patient seen at bedside
cont antibiotics
seen by colorectal
PLAN: Home, no needs anticipated
[2025-02-04 12:03] LABS: Glucose - Point of Care 144 mg/dl (70-99)
[2025-02-04 15:24] VITALS: BP 124/56
[2025-02-04 16:35] LABS: Glucose - Point of Care 156 mg/dl (70-99)
[2025-02-04 21:16] LABS: Glucose - Point of Care 154 mg/dl (70-99)
[2025-02-04] MEDS: XANAX 0.25 MG PO (22:48)
[2025-02-04 23:00] VITALS: BP 140/56
[2025-02-05] MEDS: TORADOL 10 MG IV (01:17)
[2025-02-05 07:00] VITALS: BP 137/64
--- NOTE | 2025-02-05 07:03 | W.PN.HOSP.TC ---
Addendum entered and electronically signed by Ruy Reddy MD 02/06/25 15:20:
finish antibiotic course
outpt gi and surggery follow up
dc home
Original Note:
Today's Communication/Plan
-
- Discharge to home today
- PO cefdinir 300mg bid for 8 more days (02/12/2025, 10 day total course)
- PO metronidazole 500mg bid for 8 more days (last day 02/12/2025, 10 day total course)
- follow-up colorectal surgery
- Home medications as directed
Assessment / Plan
Assessment / Plan
Patient is a 59y F with PMH significant for recurrent diverticulitis, DM-II, asthma, UMA, obesity who p/w LLQ abdominal pain most concerning for acute diverticulitis
#Acute Diverticulitis
- CT A/P read is acute diverticulitis and possible colovaginal fistula
- Tolerating low residue diet
- Clinical exam much improved
- Transition to PO cefdinir 300mg, bid for 8 more days and PO metronidazole 500mg, bid for 8 more days.
- Will need outpatient colonoscopy after discharge and assessment of the possible developing fistula
- Outpatient follow-up with Colorectal surgery, GI
# PMH of UMA
- overnight pulse oximetry was not done. she denies recalling any apneic events.
- patient reports that she does not use CPAP at home
# DM-II
- Can resume home medications as directed
# Asthma without Acute Exacerbation
- Albuterol PRN.
# Obesity due to excess calories
- Affects all aspects of care.
- Encourage healthy diet and increased activity with goal of weight loss.
disposition: discharge today
Code Status: Full
Anticipated Discharge: Today
Subjective/Interval History
-
Date of Service: February 05, 2025
bowel movements with blood, abominal pain significantly improved. tolerating full liquids.
exam: soft, no tenderness to palpation in abdomen
she is amenable to discharge today
Objective Data
-
Labs:
Laboratory Results
02/05/25
06:00
WBC Pending
Hgb Pending
Hct Pending
Plt Count Pending
Sodium Pending
Potassium Pending
Chloride Pending
Carbon Dioxide Pending
BUN Pending
Creatinine Pending
Glucose Pending
Calcium Pending
VSS, afebrile
WBC down to 6.1 from 10.6
Hgb 11.3
Vital Signs:
Vital Signs
Temp Pulse Resp BP Pulse Ox
98.0 F 54 16 140/56 98
02/04/25 23:00 02/04/25 23:00 02/04/25 23:00 02/04/25 23:00 02/04/25 23:00
I&O
02/04/25 02/05/25 02/06/25
06:59 06:59 06:59
Intake Total 1200 / 1200
Balance 1200 / 1200
Review of Systems
-
History Source: Patient
Constitutional: Reports No Symptoms
EENT: Reports No Symptoms Reported
Respiratory: Reports No Symptoms
Cardiac: Reports No Symptoms
Abdomen/GI: Reports Other (blood in BM but much improved)
Genitourinary: Reports No Symptoms
Musculoskeletal: Reports No Symptoms
Skin: Reports No Symptoms
Neuro: Reports No Symptoms
Physical Exam
-
General: No Apparent Distress
HEENT: Normocephalic and Atraumatic
Respiratory: Clear to Auscultation
Cardiac: Regular Rhythm and Other (no murmurs)
GI: Nontender
Musculoskeletal: Other (trace REINALDO)
Skin: Warm and Dry
Neuro: Awake and Alert
Psych: Calm
[2025-02-05 07:33] LABS: Hematocrit 34.6 % (37.0-47.0); Hemoglobin 11.3 g/dL (12.0-16.0); Mean Corp Hgb Conc. 32.7 g/dL (33.0-37.0); Mean Corpuscular Volume 86.3 fL (81.0-99.0); Platelet Count 233 10^3/uL (130-400); Red Cell Dist. Width 12.7 % (11.5-14.5)
[2025-02-05 07:41] LABS: Glucose - Point of Care 147 mg/dl (70-99)
[2025-02-05] MEDS: NOVOLOG FLEXPEN-LOW RESISTANCE SC (07:58)
[2025-02-05 08:31] LABS: Blood Urea Nitrogen 6 mg/dl (7-17); Calcium 8.7 mg/dl (8.4-10.2); Carbon Dioxide 26 mmol/L (22-30); Chloride 107 mmol/L (98-107); Estimated Creatinine Clearance 122 ml/min; Glucose 130 mg/dl (70-99); Potassium 4.2 mmol/L (3.5-5.1); Sodium 138 mmol/L (135-145); eGFR > 60.00
--- NOTE | 2025-02-05 09:48 | CM ---
Patient seen at bedside
discharge today per hospitalist
IMM n/a
no needs
PLAN: Home, no needs
drove self
[2025-02-05] MEDS: STERILE WATER FOR INJECTION 10 ML IV (09:57)
[2025-02-05] MEDS: ROCEPHIN 1000 MG IV (09:57)
[2025-02-05] MEDS: FLUSH (NSS) IV ×2 (09:58→11:19)
[2025-02-05] MEDS: FLUSH (NSS) 2 FLUSH IV (09:58)
[2025-02-05 12:04] LABS: Glucose - Point of Care 232 mg/dl (70-99)
[2025-02-05] MEDS: FLAGYL 500 MG 100 IV (12:20)
--- NOTE | 2025-02-05 12:20 | W.DCSUMMARY ---
Discharge Summary
Discharge Data
Date of Admission: 02/03/25
Date of Discharge: 02/05/25
-
Pending Results: No
Hospital Course
Discharging Physician : Ruy Reddy MD
Disposition : home
Primary care physician : Dary Kendall
Principal Discharge diagnosis : Acute diverticulitis
Chronic Discharge diagnosis : recurrent diverticulitis, DM-II, asthma
Hospital Course :
Patient is 59 yo F with PMH of recurrent sigmoid diverticulitis, DM-II, asthma who came in because of LLQ pain that did not resolve. Over the past several months, she reports that she experiences abdominal pain and then has a bowel movement of
mucoid/bloody/maroon stool that resolves the pain. However, a few days ago, she experienced LLQ and lower middle quadrant pain that has not resolved after having a bowel movement. For that reason, she presented to the hospital
She was started on IV ceftriaxone and IV metronidazole and made NPO. She underwent a CT A/P with contrast scan which showed findings of acute diverticulitis and a possible colovaginal fistula. However, the patient denies any vaginal discharge or
stool per vagina.
Colorectal surgery was consulted who recommended no operative management at this time due to an acute episode of diverticulitis. In the outpatient setting, a colonoscopy is indicated 6-8 weeks later, after the flare resolves. Discussions for a
potential elective colectomy in order to prevent furture episodes of diverticulitis can be considered at that time.
During this admission, the patient tolerated the antibiotics well and advanced her diet from NPO to clear liquids to full liquids and ultimately low residue. She was directed to self-advance as tolerated and tolerated the advances well. Her pain on
the final day of admission has resolved but endorsed some blood in bowel movements, but improved from admission.
In summary, the following problems were addressed during her hospital course:
#Acute Diverticulitis
- CT A/P read is acute diverticulitis and possible colovaginal fistula
- Tolerating low residue diet
- Clinical exam much improved
- Transition to PO cefdinir 300mg, bid for 8 more days and PO metronidazole 500mg, bid for 8 more days.
- Will need outpatient colonoscopy after discharge and assessment of the possible developing fistula
- Outpatient follow-up with Colorectal surgery, GI
# PMH of UMA
- overnight pulse oximetry was not done. she denies recalling any apneic events.
- patient reports that she does not use CPAP at home
# DM-II
- Can resume home medications as directed
# Asthma without Acute Exacerbation
- Albuterol PRN.
# Obesity due to excess calories
- Affects all aspects of care.
- Encourage healthy diet and increased activity with goal of weight loss.
disposition: discharge today
Code Status: Full
Important imaging findings :
CT Abdomen pelvis w IV contrast (02/03/2025)
IMPRESSION:
1. Acute diverticulitis of the distal sigmoid colon. Small intramural abscess measuring 19 mm. Inflammatory changes extend inferiorly and abuts the vaginal cuff raising concerning for developing colovaginal fistula.
2. Additional findings above.
A preliminary interpretation was provided by [facility] teleradiology service. The above report agrees with the initial interpretation.
Discharge Plan
-
Patient Disposition: Home (Routine Discharge)
Discharge Diagnosis/Procedures: Acute diverticulitis
Condition: Good
Diet: Low Residue
Additional Diets: Advance diet as tolerated
Activity: As tolerated
Driving Restrictions: As prior to admission
Bathing Restrictions: None
Referrals:
Nahun Gallego MD [Active, ColoRectal] - in one to two months
Referral Note: After 8 weeks for eval of surgery
Dary Kendall MD [Family Provider, Family Practice]
Additional Discharge Medication Instructions: Please start cefdinir by mouth twice a day for 8 more days
Please start metronidazole by mouth twice a day for 8 more days
You are also receiving ondansetron for GI upset, as needed.
You may continue your home medications as directed.
Please follow-up with Colorectal surgery for further management as outpatient.
Prescriptions:
New
cefdinir 300 mg capsule
300 mg PO Q12H Qty: 16 0RF
metronidazole 500 mg tablet
500 mg PO BID Qty: 16 0RF
ondansetron 4 mg tablet,disintegrating
4 mg PO Q8H PRN (Reason: GI upset) Qty: 21 0RF
Continued
glyburide-metformin 1.25 MG/250 MG tablet
1 tab PO BID
alprazolam [Xanax] 0.25 mg Tablet
0.25 mg PO HS
cholecalciferol (vitamin D3) [Vitamin D3] 25 mcg (1,000 unit) Tablet
25 mcg PO DAILY
magnesium oxide 400 mg magnesium Tablet
400 mg PO DAILY
fluticasone furoate-vilanterol [Breo Ellipta] 100-25 mcg/dose Blister With Device
1 inh INHALATION R DAILYPRN PRN (Reason: SOB)
acetaminophen [Tylenol] 325 mg Tablet
650 mg PO Q6HPRN PRN (Reason: MILD PAIN)
therapeutic multivitamin Tablet
1 tab PO DAILY
oxycodone-acetaminophen 5-325 mg Tablet
1 tab PO DAILYPRN PRN (Reason: SEVERE PAIN)
Discharge Orders:
Discharge Patient (As Directed); Ordered 02/05/25
Ordered By: Francois Palafox
Discharge Date and Time
Print Language: LATVIAN
--- NOTE | 2025-02-05 13:02 | W.PN.UPDATE ---
Update Note
Progress Note Update
Acute diverticulitis
- IV antibiotics with Rocephin and Flagyl
-Tolerated advance diet well
- Colorectal surgery following
- Outpatient elective colectomy with Colorectal surgery follow up/eval
Diabetes
- Accu-Chek
- Sliding scale
- Goal blood glucose 140-180
- Carb controlled diet
Cleared for discharge home.
Please see progress note written by resident as I agree with rest
More than 30 minutes spent in discharge including
Final examination of the patient
Summarizing hospital stay
Instructions for continuing care to all relevant caregivers
Preparation of discharge records, prescriptions, and referral forms
Total time spent (in minutes): 36m
[2025-02-05] MEDS: NOVOLOG FLEXPEN-LOW RESISTANCE 2 UNITS SC (13:03)
--- NOTE | 2025-02-05 14:18 | W.PN.CRS1 ---
Today's Communication / Plan
-
low residue
okay for d/c if tolerates a diet
follow up in 2-[address] Gallego
Assessment/Plan
-
Assessment: 59-year-old female with multiple attacks of diverticulitis in the past presents to [facility] with 2 days of abdominal pain and found to have sigmoid diverticulitis and a possible colovaginal fistula on CT
Plan:
- Advance to low residue
- Continue IV antibiotics
- No plans for surgery at this time
- Will need eventual colonoscopy
- Eventually will need to reassess the fistula in the future as the oral contrast did not make it down to that area of colon. This can be done as an outpatient after this hospitalization.
- OOB as tolerated
-Follow up in the office with Dr. Gallego in 2-4 weeks. Okay for discharge from our perspective if tolerates a diet.
Subjective Data
Subjective Data
Date of Service: February 05, 2025
Patient states she is having flatus. She did not have a bowel movement yet today. Has nausea or vomiting. Her pain is controlled.
Objective Data
-
Vital Signs
Temp Pulse Resp BP Pulse Ox
97.8 F 64 19 137/64 99
02/05/25 07:00 02/05/25 07:00 02/05/25 07:00 02/05/25 07:00 02/05/25 07:00
Intake & Output
02/04/25 02/05/25 02/06/25
06:59 06:59 06:59
Intake Total 1200 / 1200
Balance 1200 / 1200
Intake:
Oral fluids 1200 / 1200
Other:
Number of approximated MODERATE 1 2
amounts of urine
Number of approximated LARGE 2
amounts of urine
Lab Results
02/05/25 07:25
02/05/25 07:25
Physical Exam
-
General: No Acute Distress and AOx3
Abdomen: Soft, Non Distended and Non Tender
Skin: Warm and Dry
[2025-02-05 15:00] VITALS: BP 147/66
== END 2025-02-05 16:22 | disposition home or self-care (01) | DRG 378 ==
LOC: 3 WEST ACU 06:06
PROVIDERS: ADMITTING PHYSICIAN Hospitalist; ATTENDING PHYSICIAN Hospitalist; EMERGENCY PHYSICIAN Emergency Medicine; FAMILY PHYSICIAN Internal Medicine; OTHER PHYSICIAN Surgery
DX: K57.33 Diverticulitis of large intestine without perforation or abscess with bleeding (principal); N82.3 Fistula of vagina to large intestine; E11.9 Type 2 diabetes mellitus without complications; J45.909 Unspecified asthma, uncomplicated; G47.33 Obstructive sleep apnea (adult) (pediatric); E66.09 Other obesity due to excess calories; F41.9 Anxiety disorder, unspecified; Z68.33 Body mass index [BMI] 33.0-33.9, adult; Z79.84 Long term (current) use of oral hypoglycemic drugs; Z87.891 Personal history of nicotine dependence
CPT/HCPCS: 74177; 80048; 80053; 82962; 83036; 85025; 85027; 96361; 96365; 96375; 96376; 99285; Q9967

== ENCOUNTER 2025-03-01 03:42 | Inpatient (IN) | payer OTHER, SELFPAY ==
[2025-02-28 20:13] VITALS: BP 152/76
[2025-02-28 20:43] LABS: Hematocrit 38.2 % (37.0-47.0); Hemoglobin 12.3 g/dL (12.0-16.0); Mean Corp Hgb Conc. 32.2 g/dL (33.0-37.0); Mean Corpuscular Volume 86.6 fL (81.0-99.0); Nucleated Red Blood Cells % 0 %; Platelet Count 306 10^3/uL (130-400); Red Cell Dist. Width 12.9 % (11.5-14.5); Urine Character Clear (Clear)
[2025-02-28 20:49] LABS: Urine Squamous Cell >30 /LPF (Few)
[2025-02-28 20:50] LABS: Urine Red Blood Cell 0-2 /HPF (0-2)
[2025-02-28 21:01] LABS: ALT (SGPT) 14 U/L (0-35); AST (SGOT) 20 U/L (14-36); Albumin 4.3 g/dl (3.5-5.0); Alkaline Phosphatase 77 U/L (38-126); Blood Urea Nitrogen 11 mg/dl (7-17); Calcium 9.4 mg/dl (8.4-10.2); Carbon Dioxide 27 mmol/L (22-30); Chloride 103 mmol/L (98-107); Glucose 161 mg/dl (70-99); Lipase 69 U/L (23-300); Potassium 3.9 mmol/L (3.5-5.1); Sodium 136 mmol/L (135-145); Total Protein 7.3 g/dl (6.3-8.2); eGFR > 60.00
--- NOTE | 2025-02-28 22:20 | ED.GENMED ---
History of Present Illness
General
Chief Complaint: Abdominal Pain
Source: patient
Exam Limitations: none
Time Seen by Provider: 02/28/25 22:08
Nursing documentation reviewed up to this point in time: agreed with
History of Present Illness
History of Present Illness:
Note:
CHIEF COMPLAINT(S)
Abdominal pain and vaginal pain.
HISTORY OF PRESENT ILLNESS
The patient is a 59-year-old female with a history of previously treated abdominal pain, presenting with recurrent symptoms. The current episode began approximately three days ago and has progressively worsened. She reports sharp, shooting pains in
the lower abdomen and pelvic region, including pain radiating to the vaginal area, which was not previously experienced. The pain has become severe enough that she is unable to sit comfortably and had to stand while on a train. She also experiences
nausea and dark urine. The onset of symptoms correlated with a recent trip to [place], and she reports feeling unwell since her return yesterday. She attempted self-care with Tylenol and peppermint pills, with no significant relief. The patient has
been taking leftover antibiotics, specifically metronidazole (commonly referred to as Flagyl), prescribed for a previous condition. She denies any recent sick contacts but does mention having drunk alcohol. No respiratory symptoms such as cough or
chest pain were reported, although she experienced transient breathlessness after a meal, which was relieved with the use of an inhaler. The patient also notes persistent anal pain, likely related to a known fistula.
PAST MEDICAL AND SURGICAL HISTORY
The patient has a known history of a fistula, for which she has an upcoming surgical consultation in March.
MEDICATIONS
The patient has been self-administering metronidazole (Flagyl) and using an inhaler for breathlessness.
PHYSICAL EXAM
General: Alert, no acute distress.
Skin: Warm, dry.
Head: Normocephalic, atraumatic.
Neck: Supple, trachea midline.
Eye Ears, nose, mouth, and throat: Oral mucosa moist.
Cardiovascular: Regular rate and rhythm. Normal peripheral perfusion, No edema.
Respiratory: Respirations are non-labored.
Gastrointestinal: Abdomen nondistended lower abdominal tenderness noted.
Back: Normal range of motion, Normal alignment.
Musculoskeletal: Normal range of motion, normal strength.
Neurological: Alert and oriented to person, place, time, and situation, No focal neurological deficit observed.
Psychiatric: Cooperative, appropriate mood & affect.
PLAN
- Initiate oral and intravenous contrast for a computed tomography scan to further evaluate the fistula and current abdominal conditions.
- Encourage the patient to continue oral fluid intake.
- Await results of the imaging to determine the necessity of further intervention or surgical consultation.
- Continue prescribed medication regimen unless directed otherwise by imaging results.
DIFFERENTIAL DIAGNOSIS
The Differential Diagnosis includes, in no particular order and is not limited to:
1. Recurrent fistula complication
2. Urinary tract infection
3. Pelvic inflammatory disease
4. Colitis
5. Diverticulitis
6. Ovarian cyst rupture or torsion
7. Renal calculi
8. Gastroenteritis
9. Inflammatory bowel disease
10. Gynecological infection
Disposition:
SUMMARY OF ENCOUNTER
The patient is a 59-year-old female who presented to the emergency department with abdominal pain, vaginal pain, and fevers at home. She initially believed these symptoms could be related to diverticulitis and took metronidazole and ciprofloxacin
without relief. Upon examination, she reported increased vaginal pain and discomfort while sitting. Her pain improved with hydromorphone (Dilaudid) and ketorolac (Toradol). Physical examination noted diffuse lower abdominal tenderness. A CT scan
revealed a previously noted colovaginal fistula, now with new fistulization to the bladder and concerns of gas presence, as well as acute inflammation.
DISPOSITION
Admission was recommended for continued symptom control and surgical consultation.
ASSESSMENT
The findings suggest a complicated diverticulitis with new fistulization to the bladder, necessitating further surgical evaluation.
EMERGENCY TREATMENTS ADMINISTERED
Hydromorphone and ketorolac were administered for pain relief.
INDEPENDENT REVIEW OF LABS AND INTERPRETATION OF TESTS
- My independent review of the urinalysis indicates the presence of leukocytes.
- My independent review of the complete blood count (CBC) indicates an absence of leukocytosis.
- My independent CT scan interpretation shows a previously noted colovaginal fistula with new fistulization to the bladder and associated acute inflammation.
PLAN
The patient will be admitted for continued symptom management and evaluation by a surgical team.
MEDICATION RECONCILIATION
- Hydromorphone was administered for pain relief.
- Ketorolac was administered for pain relief.
MEDICAL DECISION MAKING
- Number and Complexity of Problems Addressed: Chronic conditions affecting care include a history of diverticulitis and the newly identified fistula complications.
- Data:
- Category 1: My independent interpretation of the CT scan, urinalysis, and CBC was critical in determining the presence of a new fistulization and inflammation.
- Category 3: Discussion of the management plan and need for admission with a surgical consultation.
- Risk: Prescription medication management and the decision regarding the necessity for surgery and further invasive procedures due to the identified complications.
DIAGNOSIS
- Complicated diverticulitis with colovaginal and colovesical fistulae (ICD-10 code K57.32).
Past History
Past History
ED Past Medical History: NIDDM and Other (Diverticulitis, sleep apnea, anxiety)
ED Past Surgical History: Cholecystectomy, and Gynecological
Social History
Tobacco: Former smoker
Alcohol: None
Drug: None
Living: with family
Review of Systems
Review of Systems
All Other Systems: ROS reviewed and negative except as documented in HPI and ROS
Phy Exam
Physical Exam
Physical Exam:
see hpi
Course
Orders/Labs/Results
Orders:
Orders
02/28/25 20:33
Complete Blood Count/With Diff Urgent
Comprehensive Metabolic Panel Urgent
Lipase Urgent
Urinalysis Reflex To Culture Urgent
Date Specimen was Collected: 02/28/25
Time Specimen was Collected: 20:16
Urine Microscopic Reflex Cult Urgent
Urine Culture Urgent
ARIANNA Source: U
Specimen Description:
Date Specimen was Collected: 02/28/25
Time Specimen was Collected: 20:16
02/28/25 22:26
0.9% Sodium Chloride 1000 ml [Nss] 1,000 ml IV BOLUS
HYDROmorphone [Dilaudid] 0.5 mg IV NOW STA
Iohexol [Omnipaque] See Protocol PO NOW STA
Ondansetron Injectable [Zofran] 4 mg IV NOW STA
03/01/25 01:00
CT Abd/pel W Iv And Oral Contr Urgent
Reason For Exam: abdomninal and vaginal pain
03/01/25 02:39
Ketorolac [Toradol] 15 mg IV NOW STA
03/01/25 02:44
CefTRIAXone [Rocephin] 1,000 mg IV NOW STA
MetroNIDAZOLE 500 MG/100 ML [Flagyl 500 mg] 100 ml IV NOW
03/01/25 02:50
Sterile Water [Sterile Water For Injection] 10 ml .ROUTE .STK-MED ONE
03/01/25 03:13
Admit/Transfer Patient As Directed
Co-Sign Provider:
Level of Care: Inpatient admission
Assign to:: Medical/Surgical
Physician / Group: Kulwinder
Diagnosis: Sigmoid Diverticulitis, Colovaginal Fistula
Reason for Hospitalization: Sigmoid Diverticulitis, Colovaginal Fistula
Expected length of stay greater than two midnights?: Yes
ELOS- Estimated Length of Stay in days: 4
I certify the patient meets the requirements for IP care: Yes
PRN Pain Medication Management As Directed
May give lesser potent ordered pain med per pt: Yes
preference::
Protocol:: Medication orders for pain may be administered in a
manner that supports deferring to patient preference
when the pt is:
- Requesting an ordered lesser potent pain medication.
Least to most potent pain medications are defined
as: acetaminophen < NSAID < tramadol < opioids
(morphine, oxycodone, hydromorphone).
- Requesting a lesser dose of the same medication IF
ORDERED.
- Requesting a less intrusive route of administration
if both routes are prescribed by the provider (PO <
IV).
03/01/25 03:14
Code Status As Directed
Resuscitation Status: Full Code
03/01/25 03:49
0.9% Sodium Chloride 1000 ml [Nss] 1,000 ml IV 80 mls/hr
Acetaminophen [Tylenol] 650 mg PO Q4HPRN PRN
Dextrose 50%-Water [Dextrose 50% Syringe] 12.5 grams IV [id number] PRN
Glucagon [GlucaGen] 1 mg IM PRN PRN
HYDROmorphone [Dilaudid] 0.5 mg IV Q4HPRN PRN
Ketorolac [Toradol] 10 mg IV Q6HPRN PRN
Ondansetron Injectable [Zofran] 4 mg IV Q6HPRN PRN
03/01/25 03:49
ColoRectal Surgery Consult Routine
Consulting Provider: Petey Del Rosario
Was physician already notified: No
Reason for consult: Sigmoid Diverticulitis, Colovaginal Fistula
Consult Notification Routine
Specialty to Notify: Colorectal Surgery
Date consulting provider notified: 03/01/25
Time consulting provider notified: 07:36
Notified:: Provider
Activity As Directed
Activity Level: Ambulate
Bedside Glucose Monitoring As Directed
Frequency: AC&HS
Additional Instructions:: Change to q6h if pt on TPN, tube feeding or not eating
I/O [Intake/ Output] As Directed
Frequency: Per unit guidelines
Pneumatic Compression Sleeves As Directed
Type: Knee high
Vital Signs As Directed
Frequency: Per unit guidelines
Oxygen Therapy [O2 Therapy] [RESP] Routine
Titrate/Wean O2 to maintain O2 sat greater than (%): 94
DX Deep Vein Thrombosis Video Routine
03/01/25 Breakfast
NPO
Allow oral meds: Yes
Allow clear liquids: Sips of Clears
03/01/25 06:54
Complete Blood Count/No Diff IN AM
03/01/25 07:30
Insulin Aspart Corrective Low [Novolog Flexpen-Low Resistance] See Protocol SC AC
03/01/25 08:00
Pantoprazole [Protonix IV] 40 mg IV DAILY
03/01/25 12:00
MetroNIDAZOLE 500 MG/100 ML [Flagyl 500 mg] 100 ml IV Q12H
03/02/25 00:00
CefTRIAXone [Rocephin] 2,000 mg IV Q24H
Abnormal Lab Results
02/28/25
20:33
MCHC 32.2 L g/dL
(33.0-37.0)
Abs Immat Gran (auto) 0.1 H 10^3/uL
(0-0.05)
Absolute Neuts (auto) 7.1 H 10^3/uL
(1.4-6.5)
Absolute Monos (auto) 0.7 H 10^3/uL
(0.1-0.6)
Immature Gran % 0.6 H %
(0-0.5)
Lymphocytes % 14.6 L %
(20.5-51.1)
Creatinine 0.4 L mg/dL
(0.6-1.0)
Glucose 161 H mg/dl
(70-99)
Leukocyte Esterase Rfl 2+ A
(Negative)
Urine WBC (Reflex) 11-15 A /HPF
(0-5)
Urine Bacteria (Reflex) Few A
(Negative)
Urine Albumin (Reflex) 1+ A
(Neg - Trace)
02/28/25 20:33
02/28/25 20:33
Vital Signs
Initial and Last Documented VS:
Initial Vital Signs
Temp Pulse Resp BP Pulse Ox
98.4 F 74 18 152/76 100
02/28/25 20:13 02/28/25 20:13 02/28/25 20:13 02/28/25 20:13 02/28/25 20:13
Last Documented Vital Signs
Temp Pulse Resp BP Pulse Ox
97.9 F 65 16 124/70 100
03/01/25 07:40 03/01/25 07:40 03/01/25 07:40 03/01/25 07:40 03/01/25 07:40
*Pulse Oximetry
SaO2: 100
Oxygen Mode of Delivery: Room air
Patient hypoxic: no
*Critical Care Note
Total Time (30-74mins, 75-104mins- exclusive of procedures): Not Applicable
ED Attending Note
-
Portions of this chart may have been created with voice recognition software.� Occasional wrong word or��sound alike� substitutions may have occurred due to the inherent limitations of voice recognition software.
Discharge Plan
Departure
Patient Disposition: Admit
Date of Disposition: 03/01/25
Time of Disposition: 02:54
Admit to: Med/Surg
Presentation/result/management discussed w/ accepting MD/DO: Hospitalist
Patient with high blood pressure during this ER visit?: Yes
Condition: Good
Discharge Problem:
Colovesical fistula, Diverticulitis
Interventions
Interventions:
*Risk Screen - Suicide Last Done: 03/01/25 05:43
*General Assessment Last Done: 02/28/25 20:13
*Neglect/Abuse Screening Last Done: 02/28/25 20:13
*ED- Fall Risk Assessment Last Done: 02/28/25 22:31
*ED COVID-19 Vaccine History Last Done: 03/01/25 05:43
*Nursing Disposition Last Done: 03/01/25 05:30
WY-[id number] Assessment Last Done: 03/01/25 03:10
Discharge Date and Time
Discharge Date/Time: 03/01/25 05:30
[2025-02-28 22:31] VITALS: BMI 33.5
[2025-02-28 22:33] VITALS: BP 130/59
[2025-02-28 22:34] VITALS: BP 130/59
[2025-02-28] MEDS: NSS 1000 IV (22:47)
[2025-02-28] MEDS: ZOFRAN 4 MG IV (22:48)
[2025-02-28] MEDS: DILAUDID 0.5 MG IV (22:53)
[2025-02-28] MEDS: OMNIPAQUE 50 ML PO (22:55)
[2025-02-28 23:00] VITALS: BP 135/76
[2025-03-01] VITALS (9 sets, daily range): BP systolic 119–141; BP diastolic 58–70; BMI 34.0
[2025-03-01] MEDS: TORADOL 15 MG IV (02:47)
[2025-03-01] MEDS: ROCEPHIN 1000 MG IV (02:58)
[2025-03-01] MEDS: FLAGYL 500 MG 100 IV ×2 (03:10→12:23)
--- NOTE | 2025-03-01 03:16 | HPS.HSE ---
Family Physician
-
Family Physician: Dary Kendall MD
Chief Complaint
-
Fevers
History of Present Illness
Patient is a 59y F with PMH significant for DM-II, asthma and recurrent sigmoid diverticulitis who presents to ED complaining of intermittent fevers x 2 days and vaginal pain. Patient was recently hospitalized for sigmoid diverticulitis from
02/03 - 02/05. She states that she completed her course of abx about two weeks ago and was feeling improved. For the past two days, she has noted intermittent fevers / chills, vaginal pain, nausea and brown urine. Patient took a few doses of abx
that she had 'left over' from her recent episode of diverticulitis. Her symptoms did not improve and she presented to the ED for further evaluation.
Patient states that she has an appointment with Dr. Gallego upcoming to discuss her recurrent diverticulitis.
CT scan done during her January admission showed inflammatory changes concerning for developing colovaginal fistula.
Medical History
Past Medical History
Past Medical History: Reports Other
Additional Past Medical History:
DM-II
UMA not on CPAP
Recurrent Sigmoid Diverticulitis
Obesity
Asthma
Past Surgical History: Reports Other
Additional Past Surgical History:
Cholecystectomy
Hysterectomy
Social History
Tobacco: Former Smoker (Quit smoking many years ago.)
Alcohol: None
Drug: None
Family History
Family History: Not pertinent
Allergies / Home Medications
Allergies reflects when Allergies were last updated in [facility].
Home Medications with original date entered in [facility]
Allergy/Medication List:
Allergies
Allergy/AdvReac Type Severity Reaction Status Date / Time
ciprofloxacin (From Cipro) Allergy Unknown Verified 02/28/25 22:31
levofloxacin (From Levaquin) Allergy palpitation Verified 02/28/25 22:31
s
Penicillins Allergy rash as a Verified 02/28/25 22:31
child;
tolerated
ceftriaxone
& cefdinir
Home Medications
glyburide 1.25 mg-metformin 250 mg tablet 1 tab PO TID Diabetes 08/03/19
alprazolam 0.25 mg tablet (Xanax) 0.25 mg PO HS Mental Health/Anxiety 11/15/22
cholecalciferol (vitamin D3) 25 mcg (1,000 unit) tablet (Vitamin D3) 25 mcg PO DAILY Supplement 11/15/22
fluticasone furoate 100 mcg-vilanterol 25 mcg/dose inhalation powder (Breo Ellipta) 1 inh inhalation R DAILYPRN PRN SOB 11/15/22
magnesium oxide 250 mg PO BID Supplement 11/15/22
acetaminophen 325 mg tablet (Tylenol) 650 mg PO Q6HPRN PRN MILD PAIN 02/03/25
oxycodone-acetaminophen 5 mg-325 mg tablet 1 tab PO DAILYPRN PRN SEVERE PAIN 02/03/25
therapeutic multivitamin 1 tab PO DAILY Supplement 02/03/25
ondansetron 4 mg disintegrating tablet 4 mg PO Q8H PRN GI upset #21 tabs 02/05/25
Review of Systems
-
History Source: Patient
A 12 point ROS was completed and negative except as noted: Yes
Constitutional: Reports Fever; Denies Fatigue or Chills
EENT: Denies Sore Throat
Respiratory: Denies Cough or Trouble Breathing
Cardiac: Denies Chest Pain or Palpitations
Abdomen/GI: Reports Abdominal Pain and Nausea; Denies Vomiting, Diarrhea, Constipated, Bloody Stools or Black Stools
: Reports Dark Urine and Other (Vaginal pain.); Denies Dysuria, Frequency or Flank Pain
Musculoskeletal: Denies Joint Pain or Edema
Neurological: Denies Dizzy or Headache
Physical Exam
Vital Signs
Vital Signs
Temp Pulse Resp BP Pulse Ox
98.7 F 68 18 128/67 98
02/28/25 22:34 03/01/25 03:00 02/28/25 22:34 03/01/25 03:00 03/01/25 03:00
Physical Exam
General: Other (59y F in no acute distress.)
HEENT: Moist mucous membranes and PERRLA
Respiratory: Clear; No Wheezes, Rales or Rhonchi
Cardiac: S1/S2, Regular Rhythm and Murmur (II/ WILMA)
GI: Soft, Non Distended, Normal Bowel Sounds and Other (Pos tenderness in the LLQ and suprapubic areas. No rebound / guarding.)
Musculoskeletal: No Clubbing, No Cyanosis and No Edema
Neuro: AO x 3
Laboratory Results
-
02/28/25 20:33
02/28/25 20:33
Laboratory Results
Total Bilirubin 0.5 mg/dl (0.2-1.3) 02/28/25 20:33
AST 20 U/L (14-36) 02/28/25 20:33
ALT 14 U/L (0-35) 02/28/25 20:33
Alkaline Phosphatase 77 U/L (38-126) 02/28/25 20:33
Lipase 69 U/L (23-300) 02/28/25 20:33
Impression/Plan
-
A/P: Patient is a 59y F with PMH significant for DM-II, asthma and obesity who presents to ED complaining of fever and vaginal pain x 2 days.
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
- Admit for further evaluation and treatment.
- CT scan done today shows more definitive / clear evidence of colovaginal fistula as well as new colovesicular fistula.
- IV abx with ceftriaxone / metronidazole given allergies.
- Colorectal Surgery evaluation for additional recommendations.
- No vaginal stooling, discharge, etc but now complains of vaginal pain and dark colored urine.
- Follow fever curve, pain, etc.
- Supportive care with IVFs, pain control, etc.
DM-II
- Stable. Hold PO medications.
- Follow glucose and cover with SSI as needed.
- Update A1C.
Asthma without Acute Exacerbation
- Stable. Continue home inhaler regimen.
- Albuterol PRN.
Obesity due to excess calories
- Affects all aspects of care.
- Encourage healthy diet and increased activity with goal of weight loss.
DVT Prophylaxis: SCDs
Code Status: Full
[2025-03-01] MEDS: NSS 1000 IV ×2 (04:12→12:21)
[2025-03-01] MEDS: DILAUDID 0.5 MG IV ×2 (05:57→10:13)
--- NOTE | 2025-03-01 06:56 | PTCARENOTE ---
Pt arrived to [facility] at 0545. AAOx4. IVF initiated per order. Ambulated to bed w/o issue. Plan of care reviewed with pt. Call whitaker within reach, bed in lowest position, bed locked. Care ongoing.
[2025-03-01 07:18] LABS: Hematocrit 32.5 % (37.0-47.0); Hemoglobin 10.4 g/dL (12.0-16.0); Mean Corp Hgb Conc. 32.0 g/dL (33.0-37.0); Mean Corpuscular Volume 87.8 fL (81.0-99.0); Platelet Count 265 10^3/uL (130-400); Red Cell Dist. Width 12.9 % (11.5-14.5)
[2025-03-01 07:41] LABS: Glucose - Point of Care 126 mg/dl (70-99)
[2025-03-01 08:16] LABS: ALT (SGPT) 12 U/L (0-35); AST (SGOT) 20 U/L (14-36); Albumin 3.3 g/dl (3.5-5.0); Alkaline Phosphatase 65 U/L (38-126); Blood Urea Nitrogen 7 mg/dl (7-17); Calcium 8.5 mg/dl (8.4-10.2); Carbon Dioxide 26 mmol/L (22-30); Chloride 106 mmol/L (98-107); Estimated Creatinine Clearance 123 ml/min; Glucose 119 mg/dl (70-99); Potassium 4.3 mmol/L (3.5-5.1); Sodium 137 mmol/L (135-145); Total Protein 6.0 g/dl (6.3-8.2); eGFR > 60.00
--- NOTE | 2025-03-01 09:31 | CM ---
Met with patient at the bedside
Pharmacy verified; [facility] @ [address]
Patient reported that she has a home in [place] but is currently living with her parents; multilevel home; one step to enter (railing present); her bedroom and bath on the first floor; bath has tub w/ shower; shower chair, grab bar
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
Acute Rehab stay @ [facility] 2022 followed by home health care
If Home Health/VN is recommended, agency preference is [facility]
Son will transport home
Discharge plan to be determined pending hospital course; Case Management will monitor and support when identified
[2025-03-01] MEDS: PROTONIX IV 40 MG IV (09:42)
[2025-03-01] MEDS: NSS (PRESERVATIVE FREE) 10 ML IV (09:43)
--- NOTE | 2025-03-01 10:08 | CON.CRS ---
Consultation
-
Date/Time Consultation Requested: 03/01/2025, 3:49 AM
Date/Time Consultation Performed: 03/01/2025, 8:45 AM
Requesting Provider: Terry Miramontes DO
Performing Provider: Tyrell Del Rosario MD
Reason for Consultation: Diverticulitis
Medical History
-
Chief Complaint: Fevers and abdominal pain
History of Present Illness:
59-year-old female with a history of sigmoid diverticulitis with likely colovaginal fistula presents to [facility] due to night fevers as well as pain in her vaginal and lower groin area. She was admitted here about a month ago on 02/03/2025
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 She has had other attacks of diverticulitis in the past and was admitted in 2022 with 102.0 fever and chills. She was treated with IV
antibiotics. She has also been admitted to [facility] in the past for diverticulitis and hospitalized 3 times before. Her last colonoscopy was by Dr. Angel at [facility] about 2 years ago which showed polyps.
This particular episode she had fevers at night and 'weird pains 'in her vaginal area as well as lower groin. Her urine has been darker in color but she has not noticed any gas. She denies burning. She denies any discharge from her vagina. She
was nauseous earlier this morning but it has resolved.
On admission her WBC was 8.2. She has remained afebrile. CT of the abdomen and pelvis shows persistent diverticulitis involving the sigmoid colon with moderate surrounding fluid or stranding, there is a 1.8 x 1.7 cm intramural abscess versus
locally inflamed diverticulum. There is a persistent colovaginal fistula with gas now seen in the vaginal canal. Given these findings, we have been consulted for surgical opinion.
Past Medical History
Past Medical History: Other (DM II, UMA, diverticulitis, obesity, asthma)
Past Surgical History: Cholecystectomy, and Gynecological (hysterectomy)
Social History
Tobacco: Former Smoker
Alcohol: None
Drug: None
Family History
Family History: Reviewed & Not Pertinent
Allergies / Home Medications
Allergy/AdvReac Type Severity Reaction Status Date / Time
ciprofloxacin (From Cipro) Allergy Unknown Verified 02/28/25 22:31
levofloxacin (From Levaquin) Allergy palpitation Verified 02/28/25 22:31
s
Penicillins Allergy rash as a Verified 02/28/25 22:31
child;
tolerated
ceftriaxone
& cefdinir
�Medication �Instructions �Recorded �Confirmed �Type
glyburide 1.25 mg-metformin 250 mg 1 tab PO TID Diabetes 08/03/19 03/01/25 History
tablet
alprazolam 0.25 mg tablet (Xanax) 0.25 mg PO HS Mental Health/Anxiety 11/15/22 03/01/25 History
cholecalciferol (vitamin D3) 25 25 mcg PO DAILY Supplement 11/15/22 03/01/25 History
mcg (1,000 unit) tablet (Vitamin
D3)
fluticasone furoate 100 1 inh inhalation R DAILYPRN PRN SOB 11/15/22 03/01/25 History
mcg-vilanterol 25 mcg/dose
inhalation powder (Breo Ellipta)
magnesium oxide 250 mg PO BID Supplement 11/15/22 03/01/25 History
acetaminophen 325 mg tablet 650 mg PO Q6HPRN PRN MILD PAIN 02/03/25 03/01/25 History
(Tylenol)
oxycodone-acetaminophen 5 mg-325 1 tab PO DAILYPRN PRN SEVERE PAIN 02/03/25 03/01/25 History
mg tablet
therapeutic multivitamin 1 tab PO DAILY Supplement 02/03/25 03/01/25 History
ondansetron 4 mg disintegrating 4 mg PO Q8H PRN GI upset #21 tabs 02/05/25 03/01/25 Rx
tablet
Review of Systems
-
History Source: Patient
Constitutional: Fever
Abdomen/GI: Abdominal Pain
: Dark Urine and Other (Vaginal pain)
A 10 point review of systems was completed, and was negative except as per HPI.
Physical Exam
Vital Signs
Temp 97.9 F 03/01/25 07:40
Pulse 65 03/01/25 07:40
Resp Rate 16 03/01/25 07:40
Blood pressure 124/70 03/01/25 07:40
SaO2 100 03/01/25 07:40
02/28/25 03/01/25 03/02/25
06:59 06:59 06:59
Actual Weight 101.293 kg
Body Mass Index (BMI) 34.0
Lab Results / Allergies
03/01/25 06:54
03/01/25 06:54
WBC 8.2 10^3/uL (4.8-10.8) 03/01/25 06:54
Hgb 10.4 g/dL (12.0-16.0) L 03/01/25 06:54
Hct 32.5 % (37.0-47.0) L 03/01/25 06:54
Plt Count 265 10^3/uL (130-400) 03/01/25 06:54
Abs Immat Gran (auto) 0.1 10^3/uL (0-0.05) H 02/28/25 20:33
Neutrophils % 74.2 % (42.2-75.2) 02/28/25 20:33
Allergy/AdvReac Type Severity Reaction Status Date / Time
ciprofloxacin (From Cipro) Allergy Unknown Verified 02/28/25 22:31
levofloxacin (From Levaquin) Allergy palpitation Verified 02/28/25 22:31
s
Penicillins Allergy rash as a Verified 02/28/25 22:31
child;
tolerated
ceftriaxone
& cefdinir
Physical Exam
General: Well Developed and Well Nourished
GI: Soft and Tender (Left lower quadrant, mild)
Skin: Warm and Dry
Neuro: AO x 3
Psych: Calm
Assessment / Plan
-
Assessment: 59-year-old female with prior attacks of diverticulitis most recently about a month ago, presents to [facility] with fevers and abdominal/vaginal pain and found to have sigmoid diverticulitis as well as a likely colovaginal
fistula on CT exam
Plan:
- Remain n.p.o. for today. Continue IV fluids.
- Continue IV antibiotics. Recommend infectious disease consult.
- No plans for surgery during this admission unless she worsens. Surgery would include a colectomy with colostomy creation. Ideally we would like to hold off until this current attack has resolved to perform surgery in an elective manner.
- Will follow.
[2025-03-01 12:20] LABS: Glucose - Point of Care 128 mg/dl (70-99)
--- NOTE | 2025-03-01 13:28 | W.PN.HOSP.TC ---
Today's Communication/Plan
-
NPO/IVF and follow CRS recs
ID evaluation. continue IV abx and pain control
Assessment / Plan
Assessment / Plan
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
- CT with more definitive/clear evidence of colovaginal fistula as well as new colovesicular fistula.
- patient with failure of outpatient antibiotics
- continue Rocephin/Flagyl. Consult ID - requested by colorectal service
- follow colorectal Surgery recommendations - nonoperative management for now.
- No vaginal stooling, discharge, etc but now complains of vaginal pain and dark colored urine.
- Follow fever curve, pain, etc.
- Supportive care with IVFs, pain control, etc.
DM-II
- Stable. Hold PO medications.
- Follow glucose and cover with SSI as needed.
- A1c 7.4% recently
Asthma without Acute Exacerbation
- Stable. Continue home inhaler regimen.
- Albuterol PRN.
Obesity due to excess calories
- Affects all aspects of care.
- Encourage healthy diet and increased activity with goal of weight loss.
DVT Prophylaxis: SCDs
Code Status: Full
Anticipated Discharge: > 48 hours
Subjective/Interval History
-
Date of Service: March 01, 2025
resting comfortably, no complaints at present
Objective Data
-
Labs:
Laboratory Results
03/01/25
06:54
WBC 8.2
Hgb 10.4 L
Hct 32.5 L
Plt Count 265
Sodium 137
Potassium 4.3
Chloride 106
Carbon Dioxide 26
BUN 7
Creatinine 0.5 L
Glucose 119 H
Calcium 8.5
Total Bilirubin 0.3
AST 20
ALT 12
Alkaline Phosphatase 65
Vital Signs:
Vital Signs
Temp Pulse Resp BP Pulse Ox
97.9 F 65 16 124/70 100
03/01/25 07:40 03/01/25 07:40 03/01/25 07:40 03/01/25 07:40 03/01/25 07:40
Physical Exam
-
General: No Apparent Distress
HEENT: Normocephalic and Atraumatic
Respiratory: Clear to Auscultation; Negative Wheezes
Cardiac: Regular Rhythm and S1/S2
GI: Tender (Left lower quadrant)
Musculoskeletal: No Edema
Neuro: AO x 3
Psych: Calm
Data Reviewed
-
Total Time Spent with Patient (in minutes): 42
Labs: Labs Reviewed by me
--- NOTE | 2025-03-01 16:36 | CON.ID ---
Consultation
-
Date/Time Consultation Requested: 03/01/2025 1100
Date/Time Consultation Performed: 03/01/2025 1630
Requesting Provider: Dr. Rodriguez
Performing Provider: Dr. Peña
Reason for Consultation: Diverticulitis
Chief Complaint / Past History
History of Present Illness
Any Andre is a 59-year-old female being evaluated at the request of Dr. Rodriguez regarding recurrent diverticulitis. History is obtained from chart review, along with patient interview.
The patient recently [facility] and was discharged home on 02/05/2025 on a course of cefdinir and metronidazole. She reports that once home she did well, and then went on vacation to [place] where
she had a return of fever and pain. While in [place] she resumed some 'leftover' antibiotics, and finally presented back to the hospital for further evaluation. Here, imaging revealed ongoing diverticular disease, and Infectious Diseases is asked
to comment upon further antibiotic recommendations.
At the present time she notes ongoing left lower quadrant discomfort which she describes as sharp and 7/10. She admits to prior nausea along with fevers. She denies any diarrhea, but notes some constipation.
Past History
Additional Past Medical History:
DM
Asthma
Diverticulitis
Additional Past Surgical History:
AMELIA
Cholecystectomy
Femur fracture
Allergy History:
ciprofloxacin (From Cipro) Allergy (Verified 02/28/25 22:31)
Unknown
levofloxacin (From Levaquin) Allergy (Verified 02/28/25 22:31)
palpitations
Penicillins Allergy (Verified 02/28/25 22:31)
rash as a child; tolerated ceftriaxone & cefdinir
Medications Reviewed: Yes
Current Antibiotics:
Ceftriaxone 2 gm IV q.24 hours
Metronidazole 500 mg IV q.12 hours
Social History
Tobacco: Non-Smoker
Alcohol: None
Drug: None
Employment: Employed
Family History
Family History: Not Pertinent
Review of Systems
Vital Signs
Temp Pulse Resp BP Pulse Ox
97.8 F 64 16 125/58 99
03/01/25 16:00 03/01/25 16:00 03/01/25 16:00 03/01/25 16:00 03/01/25 16:00
Physical Exam
Physical Exam
Constitutional: No Acute Distress, Comfortable and Non-toxic
Head: Normocephalic
Eyes: Pupils Equal, Pupils Round, No Conjunctival Hemorrhage and Sclera Anicteric
Oral: No Thrush and No Ulcers
Cardiovascular: S1/S2; Negative S3/S4
Pulmonary: Clear; Negative Wheezes, Rales or Rhonchi
Gastrointestinal: Soft, Tender (LLQ), Non Distended and Normal Bowel Sounds
Extremities: Negative Edema, Cyanosis or Erythema
Skin: Warm and Dry; Negative Rash or Jaundice
Neurological: Awake and Alert
Psychological: Calm
Lab / Diagnostic Study Results
03/01/25 06:54
03/01/25 06:54
Abs Immat Gran (auto) 0.1 10^3/uL (0-0.05) H 02/28/25 20:33
Absolute Neuts (auto) 7.1 10^3/uL (1.4-6.5) H 02/28/25 20:33
Absolute Lymphs (auto) 1.4 10^3/uL (1.2-3.4) 02/28/25 20:33
Absolute Monos (auto) 0.7 10^3/uL (0.1-0.6) H 02/28/25 20:33
Absolute Basos (auto) 0.1 10^3/uL (0-0.2) 02/28/25 20:33
Immature Gran % 0.6 % (0-0.5) H 02/28/25 20:33
Neutrophils % 74.2 % (42.2-75.2) 02/28/25 20:33
Lymphocytes % 14.6 % (20.5-51.1) L 02/28/25 20:33
Monocytes % 7.1 % (1.7-9.3) 02/28/25 20:33
Eosinophils % 2.7 % (0-6) 02/28/25 20:33
Basophils % 0.8 % (0-2) 02/28/25 20:33
Ur Squamous Epith Cells >30 /LPF (Few) 02/28/25 20:33
Microbiology Results
Micro:
02/28/25 20:33 Urine Culture - Pending
Urine
Imaging:
03/01/2025 CT abdomen/pelvis with contrast: sigmoid diverticulitis is unchanged, with moderate surrounding inflammation. On the wall of the sigmoid there is an intramural abscess versus focally inflamed diverticulum, unchanged from prior study. Air
in the vaginal canal consistent with possible colovaginal fistula. Air is noted in the bladder with a lack of fat plane between the inflammation in the bladder. Colovesicle fistula cannot be excluded. Please see full dictation for additional
detail.
Assessment / Plan
Recurrent diverticulitis
- Failed outpatient antibiotic therapy
Suspicion for colovesical / colovaginal fistula
DM
Asthma
Recommendations:
Discontinue further ceftriaxone/metronidazole
Transition to ertapenem 1 gm IV q.24 hours.
Follow white count and temperature curve.
Given outpatient oral antibiotic failure, patient may require a course of IV antibiotics
Further recommendations as additional data is returned.
[2025-03-01] MEDS: TORADOL 10 MG IV (16:45)
[2025-03-01] MEDS: INVANZ 60 MG IV (18:05)
[2025-03-01 18:23] LABS: Glucose - Point of Care 102 mg/dl (70-99)
[2025-03-01] MEDS: XANAX 0.25 MG PO (20:11)
[2025-03-01] MEDS: ZOFRAN 4 MG IV (21:50)
[2025-03-01 23:35] LABS: Glucose - Point of Care 91 mg/dl (70-99)
[2025-03-02] MEDS: DILAUDID 0.5 MG IV (01:27)
[2025-03-02] MEDS: NSS 1000 IV (01:30)
[2025-03-02 06:09] LABS: Glucose - Point of Care 85 mg/dl (70-99)
[2025-03-02 07:30] VITALS: BP 136/58
[2025-03-02 08:02] LABS: Hematocrit 36.3 % (37.0-47.0); Hemoglobin 11.3 g/dL (12.0-16.0); Mean Corp Hgb Conc. 31.1 g/dL (33.0-37.0); Mean Corpuscular Volume 88.3 fL (81.0-99.0); Platelet Count 277 10^3/uL (130-400); Red Cell Dist. Width 12.9 % (11.5-14.5)
[2025-03-02] MEDS: PROTONIX IV 40 MG IV (08:24)
[2025-03-02] MEDS: NSS (PRESERVATIVE FREE) 10 ML IV (08:25)
[2025-03-02] MEDS: TYLENOL 650 MG PO (08:27)
[2025-03-02 08:45] LABS: Blood Urea Nitrogen 4 mg/dl (7-17); Calcium 8.4 mg/dl (8.4-10.2); Carbon Dioxide 27 mmol/L (22-30); Chloride 108 mmol/L (98-107); Estimated Creatinine Clearance 123 ml/min; Glucose 87 mg/dl (70-99); Potassium 4.3 mmol/L (3.5-5.1); Sodium 140 mmol/L (135-145); eGFR > 60.00
--- NOTE | 2025-03-02 10:16 | W.PN.CRS1 ---
Today's Communication / Plan
-
clears to fulls
antibiotics per ID
no plans for surgery during this admission
Assessment/Plan
-
Assessment: 59-year-old female with multiple attacks of diverticulitis in the past presents to [facility] with 2 days of abdominal pain and found to have sigmoid diverticulitis and a possible colovaginal fistula on CT
Assessment: 59-year-old female with prior attacks of diverticulitis most recently about a month ago, presents to [facility] with fevers and abdominal/vaginal pain and found to have sigmoid diverticulitis as well as a likely colovaginal
fistula on CT exam
Plan:
- On clears. Advance to fulls if tolerating.
- Continue IV antibiotics. Appreciate ID. Invanz q 12 hours. Considering outpatient IV antibiotics.
- No plans for surgery during this admission unless she worsens. Surgery would include a colectomy with colostomy creation. Ideally we would like to hold off until this current attack has resolved to perform surgery in an elective manner.
- Will follow.
Subjective Data
Subjective Data
Date of Service: March 02, 2025
Patient states she is having loose bowel movements but her pain is getting better. She did not have any fevers overnight. Overall she is improved since yesterday.
Objective Data
-
Vital Signs
Temp Pulse Resp BP Pulse Ox
97.9 F 65 16 136/58 94
03/02/25 07:30 03/02/25 07:30 03/02/25 07:30 03/02/25 07:30 03/02/25 07:30
Intake & Output
03/01/25 03/02/25 03/03/25
06:59 06:59 06:59
Intake Total 1360 / 1360
Balance 1360 / 1360
Intake:
Oral fluids 360 / 360
IV fluids (Total) 1000 / 1000
Other:
Number of approximated MODERATE 1
amounts of urine
Number of approximated LARGE 1
amounts of urine
Lab Results
03/02/25 07:22
03/02/25 07:22
Physical Exam
-
General: No Acute Distress and AOx3
Abdomen: Soft, Non Distended and Tender (mild LLQ)
Skin: Warm and Dry
--- NOTE | 2025-03-02 11:06 | CM ---
Reviewed the chart notes and spoke with the patient at the bedside. Per note, transition to ertapenem 1 gm IV q.24 hours. Patient may require home IV abx at discharge. CM continues to be available to patient/family and is monitoring medical plan
for needs at discharge.
Plan: Discharge plans will depend on the patient's progress.
[2025-03-02 12:08] LABS: Glucose - Point of Care 141 mg/dl (70-99)
--- NOTE | 2025-03-02 13:47 | W.PN.HOSP.TC ---
Today's Communication/Plan
-
clears
follow CRS recs
Ertapenem - f/u ID recs
Assessment / Plan
Assessment / Plan
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
- CT with more definitive/clear evidence of colovaginal fistula as well as new colovesicular fistula.
- patient with failure of outpatient antibiotics
- continue Ertapenem per ID. May need Outpatient IV antibiotics
- follow colorectal Surgery recommendations - nonoperative management for now.
- No vaginal stooling, discharge, etc but now complains of vaginal pain and dark colored urine.
- diet: Clears
- pain control, anti-emetics
DM-II
- Stable. Hold PO medications.
- Follow glucose and cover with SSI as needed.
- A1c 7.4% recently
Asthma without Acute Exacerbation
- Stable. Continue home inhaler regimen.
- Albuterol PRN.
Obesity due to excess calories
- Affects all aspects of care.
- Encourage healthy diet and increased activity with goal of weight loss.
DVT Prophylaxis: SCDs
Code Status: Full
Anticipated Discharge: > 48 hours
Subjective/Interval History
-
Date of Service: March 02, 2025
pain improving
loose BMs
on clears
Objective Data
-
Labs:
Laboratory Results
03/02/25
07:22
WBC 6.4
Hgb 11.3 L
Hct 36.3 L
Plt Count 277
Sodium 140
Potassium 4.3
Chloride 108 H
Carbon Dioxide 27
BUN 4 L
Creatinine 0.5 L
Glucose 87
Calcium 8.4
Vital Signs:
Vital Signs
Temp Pulse Resp BP Pulse Ox
97.9 F 65 16 136/58 94
03/02/25 07:30 03/02/25 07:30 03/02/25 07:30 03/02/25 07:30 03/02/25 08:23
I&O
03/01/25 03/02/25 03/03/25
06:59 06:59 06:59
Intake Total 1360 / 1360 520 / 520
Balance 1360 / 1360 520 / 520
Physical Exam
-
General: No Apparent Distress
HEENT: Normocephalic and Atraumatic
Cardiac: Regular Rhythm and S1/S2
GI: Tender (LLQ)
Neuro: AO x 3
Psych: Calm
Data Reviewed
-
Total Time Spent with Patient (in minutes): 42
Labs: Labs Reviewed by me
--- NOTE | 2025-03-02 15:05 | W.PN.ID1 ---
Date of Service
Date of Service: March 02, 2025
Today's Communication
Continue ertapenem
Assessment / Plan
Recurrent diverticulitis
- Failed outpatient antibiotic therapy
Suspicion for colovesical / colovaginal fistula
DM
Asthma
Recommendations:
Continue ertapenem 1 gm IV q.24 hours.
Follow white count and temperature curve.
Given outpatient oral antibiotic failure, patient likely will require a course of IV antibiotics
����������������������������������������������������������
Chief Complaint
-: Other (Diverticulitis)
Subjective / Review of Systems
Review of Systems: No Fever and No Chills
Vital Signs / Physical Exam
Vital Signs
Vital Signs
Temp Pulse Resp BP Pulse Ox
97.9 F 65 16 136/58 94
03/02/25 07:30 03/02/25 07:30 03/02/25 07:30 03/02/25 07:30 03/02/25 08:23
Physical Exam
Constitutional: No Acute Distress, Comfortable, Non-toxic and Obese
Eyes: No Conjunctival Hemorrhage and Sclera Anicteric
Cardiovascular: S1/S2; Negative S3/S4
Pulmonary: Non Labored
Gastrointestinal: Soft, Tender (Minimal), Non Distended, Normal Bowel Sounds, No Rebound and No Guarding
Extremities: Negative Clubbing or Cyanosis
Neurological: Awake and Alert
Psychological: Calm
Objective Data
Lab Data
Lab Results
03/02/25 07:22
03/02/25 07:22
Estimated Creat Clear 123 ml/min 03/02/25 07:22
Total Bilirubin 0.3 mg/dl (0.2-1.3) 03/01/25 06:54
AST 20 U/L (14-36) 03/01/25 06:54
ALT 12 U/L (0-35) 03/01/25 06:54
Alkaline Phosphatase 65 U/L (38-126) 03/01/25 06:54
Most recent labs reviewed.
Micro Results:
02/28/25 20:33 Urine Culture - Final
Urine No Significant Growth
Imaging:
03/01/2025 CT abdomen/pelvis with contrast: sigmoid diverticulitis is unchanged, with moderate surrounding inflammation. On the wall of the sigmoid there is an intramural abscess versus focally inflamed diverticulum, unchanged from prior study. Air
in the vaginal canal consistent with possible colovaginal fistula. Air is noted in the bladder with a lack of fat plane between the inflammation in the bladder. Colovesicle fistula cannot be excluded. Please see full dictation for additional
detail.
[2025-03-02 15:30] VITALS: BP 140/61
[2025-03-02 17:49] LABS: Glucose - Point of Care 165 mg/dl (70-99)
[2025-03-02] MEDS: INVANZ 60 MG IV (18:04)
[2025-03-02] MEDS: TORADOL 10 MG IV (19:56)
[2025-03-02 21:35] LABS: Glucose - Point of Care 180 mg/dl (70-99)
[2025-03-02] MEDS: XANAX 0.25 MG PO (22:13)
[2025-03-02 23:20] VITALS: BP 140/71
[2025-03-03] MEDS: PROTONIX IV 40 MG IV (07:29)
[2025-03-03] MEDS: NSS (PRESERVATIVE FREE) 10 ML IV (07:29)
[2025-03-03] MEDS: TORADOL 10 MG IV ×2 (07:30→21:35)
[2025-03-03 07:35] LABS: Hematocrit 32.6 % (37.0-47.0); Hemoglobin 10.6 g/dL (12.0-16.0); Mean Corp Hgb Conc. 32.5 g/dL (33.0-37.0); Mean Corpuscular Volume 86.7 fL (81.0-99.0); Platelet Count 243 10^3/uL (130-400); Red Cell Dist. Width 12.8 % (11.5-14.5)
[2025-03-03 07:40] VITALS: BP 149/74
[2025-03-03 07:48] LABS: Glucose - Point of Care 149 mg/dl (70-99)
[2025-03-03] MEDS: NOVOLOG FLEXPEN-LOW RESISTANCE SC (07:52)
--- NOTE | 2025-03-03 08:04 | W.PN.CRS1 ---
Today's Communication / Plan
-
low residue diet
antibiotics per ID
no plans for surgery during this admission
Assessment/Plan
-
Assessment: 59-year-old female with multiple attacks of diverticulitis in the past presents to [facility] with 2 days of abdominal pain and found to have sigmoid diverticulitis and a possible colovaginal fistula on CT
Plan:
- Advance to low residue diet
- Continue IV antibiotics. Appreciate ID. Invanz q 12 hours. Considering outpatient IV antibiotics.
- No plans for surgery during this admission.
- Potential discharge tomorrow with short term follow-up in our office to schedule surgery.
Subjective Data
Subjective Data
Date of Service: March 03, 2025
She feels better overall. She took pain meds last night mostly for sleep. She still has some LLQ/suprapubic discomfort. She is having loose bowel movements and no vaginal discharge. She is tolerating full liquids.
Objective Data
-
Vital Signs
Temp Pulse Resp BP Pulse Ox
98.4 F 59 17 140/71 99
03/02/25 23:20 03/02/25 23:20 03/02/25 23:20 03/02/25 23:20 03/02/25 23:20
Intake & Output
03/02/25 03/03/25 03/04/25
06:59 06:59 06:59
Intake Total 1360 / 1360 1290 / 1290
Balance 1360 / 1360 1290 / 1290
Intake:
Oral fluids 360 / 360 720 / 720
IV fluids (Total) 1000 / 1000 520 / 520
IV piggybacks 50 / 50
Other:
Number of approximated MODERATE 1 3
amounts of urine
Number of approximated LARGE 1
amounts of urine
Lab Results
03/03/25 07:02
Physical Exam
-
General: No Acute Distress
Abdomen: Soft, Non Distended and Tender (minimal LLQ)
Extremities: No Calf Tenderness
[2025-03-03 08:15] LABS: Blood Urea Nitrogen 5 mg/dl (7-17); Calcium 8.7 mg/dl (8.4-10.2); Carbon Dioxide 26 mmol/L (22-30); Chloride 108 mmol/L (98-107); Estimated Creatinine Clearance 123 ml/min; Glucose 144 mg/dl (70-99); Potassium 4.1 mmol/L (3.5-5.1); Sodium 139 mmol/L (135-145); eGFR > 60.00
--- NOTE | 2025-03-03 09:21 | W.PN.HOSP.TC ---
Today's Communication/Plan
-
LRD
setup home IV infusions with expected dc in 24 hours
Assessment / Plan
Assessment / Plan
Assessment:
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
- CT with more definitive/clear evidence of colovaginal fistula as well as new colovesicular fistula.
- patient with failure of outpatient antibiotics
- continue Ertapenem per ID for at least 2 weeks. PICC to be placed for home IV Antibiotics.
- follow colorectal Surgery recommendations - nonoperative management for now.
- diet: low residue
- pain control, anti-emetics
DM-II
- Stable. Hold PO medications.
- Follow glucose and cover with SSI as needed.
- A1c 7.4% recently
Asthma without Acute Exacerbation
- Stable. Continue home inhaler regimen.
- Albuterol PRN.
Obesity due to excess calories
- Affects all aspects of care.
- Encourage healthy diet and increased activity with goal of weight loss.
DVT Prophylaxis: SCDs
Code Status: Full
Anticipated Discharge: Within 24 hours
Subjective/Interval History
-
Date of Service: March 03, 2025
pain improving
tolerating full liquids
Objective Data
-
Labs:
Laboratory Results
03/03/25
07:02
WBC 7.2
Hgb 10.6 L
Hct 32.6 L
Plt Count 243
Sodium 139
Potassium 4.1
Chloride 108 H
Carbon Dioxide 26
BUN 5 L
Creatinine 0.4 L
Glucose 144 H
Calcium 8.7
Vital Signs:
Vital Signs
Temp Pulse Resp BP Pulse Ox
98.1 F 67 18 149/74 98
03/03/25 07:40 03/03/25 07:40 03/03/25 07:40 03/03/25 07:40 03/03/25 07:40
I&O
03/02/25 03/03/25 03/04/25
06:59 06:59 06:59
Intake Total 1360 / 1360 1290 / 1290
Balance 1360 / 1360 1290 / 1290
Physical Exam
-
General: No Apparent Distress
HEENT: Normocephalic and Atraumatic
Respiratory: Negative Wheezes
Cardiac: Regular Rhythm and S1/S2
GI: Soft
Genito-urinary: No Costovertebral Tender
Neuro: AO x 3
Psych: Calm
Data Reviewed
-
Total Time Spent with Patient (in minutes): 45
Labs: Labs Reviewed by me
--- NOTE | 2025-03-03 09:46 | W.PN.ID1 ---
Date of Service
Date of Service: March 03, 2025
Today's Communication
Continue current antibiotics.
Assessment / Plan
Recurrent diverticulitis
- Failed outpatient antibiotic therapy
Suspicion for colovesical / colovaginal fistula
DM
Asthma
Recommendations:
Continue ertapenem 1 gm IV q.24 hours for an additional 2 weeks (+/-).
Home infusion prescription placed on paper chart.
PICC line ordered.
Follow white count and temperature curve.
����������������������������������������������������������
Chief Complaint
-: Other (Diverticulitis)
Subjective / Review of Systems
Patient seen and examined. Reports abdominal discomfort improved.
Review of Systems: No Fever and No Chills
Vital Signs / Physical Exam
Vital Signs
Vital Signs
Temp Pulse Resp BP Pulse Ox
98.1 F 67 18 149/74 98
03/03/25 07:40 03/03/25 07:40 03/03/25 07:40 03/03/25 07:40 03/03/25 07:40
Physical Exam
Constitutional: No Acute Distress, Comfortable, Non-toxic and Obese
Eyes: No Conjunctival Hemorrhage and Sclera Anicteric
Cardiovascular: S1/S2; Negative S3/S4
Pulmonary: Non Labored
Gastrointestinal: Soft, Non Distended and Normal Bowel Sounds
Extremities: Negative Clubbing or Cyanosis
Neurological: Awake and Alert
Psychological: Calm
Objective Data
Lab Data
Lab Results
03/03/25 07:02
03/03/25 07:02
Estimated Creat Clear 123 ml/min 03/03/25 07:02
Total Bilirubin 0.3 mg/dl (0.2-1.3) 03/01/25 06:54
AST 20 U/L (14-36) 03/01/25 06:54
ALT 12 U/L (0-35) 03/01/25 06:54
Alkaline Phosphatase 65 U/L (38-126) 03/01/25 06:54
Most recent labs reviewed.
Micro Results:
02/28/25 20:33 Urine Culture - Final
Urine No Significant Growth
Imaging:
03/01/2025 CT abdomen/pelvis with contrast: sigmoid diverticulitis is unchanged, with moderate surrounding inflammation. On the wall of the sigmoid there is an intramural abscess versus focally inflamed diverticulum, unchanged from prior study. Air
in the vaginal canal consistent with possible colovaginal fistula. Air is noted in the bladder with a lack of fat plane between the inflammation in the bladder. Colovesicle fistula cannot be excluded. Please see full dictation for additional
detail.
Care Review
Plan reviewed with: Physician (Hospitalist; SHIVA)
--- NOTE | 2025-03-03 10:33 | CM ---
Addendum entered by Juli Amezquita 03/03/25 15:52:
PICC info, CXR, labs, med profile faxed to Susan at [facility]
Reviewed benefit coverage with patient-$200 away from having yearly out of pocket met then covered 100%
Susan will call the patient again tomorrow - the patient is to go to [facility] for teaching (10 min from her house)
Medication will be delivered to the patient address of: [address] for her evening dose
Patient to be discharged tomorrow as she has transportation arranged
PLAN: Home with IV antibiotics tomorrow
[facility] Fax #: [phone]
friend Ruth to transport
Original Note:
Met with patient
PICC TO BE PLACED - fax info to [facility] once placed
will need home IV antibiotics - Ertapenum 1 gm. Q24hr, for 2 wks possibly longer - end date 03/17/25
Options reviewed - prefer [facility]
Notified Susan from [facility] & faxed clinicals/script for benefit check (confirmation rec'd) [phone] Peña for new script with dose/frequecy
Patient states she will be staying at parents - address: [address] [place] [address]
PLAN: Home, with IV Antibiotics, await benefit check, PICC line placement
[2025-03-03 11:49] LABS: Glucose - Point of Care 210 mg/dl (70-99)
[2025-03-03] MEDS: NOVOLOG FLEXPEN-LOW RESISTANCE 2 UNITS SC ×2 (11:53→16:51)
[2025-03-03] MEDS: INVANZ 60 MG IV (16:51)
[2025-03-03 16:52] LABS: Glucose - Point of Care 219 mg/dl (70-99)
[2025-03-03 21:21] LABS: Glucose - Point of Care 227 mg/dl (70-99)
[2025-03-03] MEDS: XANAX 0.25 MG PO (21:31)
[2025-03-03 23:19] VITALS: BP 126/49
[2025-03-04 04:25] LABS: Hematocrit 32.7 % (37.0-47.0); Hemoglobin 10.5 g/dL (12.0-16.0); Mean Corp Hgb Conc. 32.1 g/dL (33.0-37.0); Mean Corpuscular Volume 86.5 fL (81.0-99.0); Platelet Count 238 10^3/uL (130-400); Red Cell Dist. Width 12.8 % (11.5-14.5)
[2025-03-04 04:52] LABS: Blood Urea Nitrogen 4 mg/dl (7-17); Calcium 8.8 mg/dl (8.4-10.2); Carbon Dioxide 27 mmol/L (22-30); Chloride 108 mmol/L (98-107); Estimated Creatinine Clearance 123 ml/min; Glucose 142 mg/dl (70-99); Potassium 4.0 mmol/L (3.5-5.1); Sodium 139 mmol/L (135-145); eGFR > 60.00
[2025-03-04 07:00] VITALS: BP 145/65
[2025-03-04 07:57] LABS: Glucose - Point of Care 177 mg/dl (70-99)
[2025-03-04] MEDS: NOVOLOG FLEXPEN-LOW RESISTANCE 1 UNITS SC (08:15)
[2025-03-04] MEDS: NSS (PRESERVATIVE FREE) 10 ML IV (08:16)
[2025-03-04] MEDS: PROTONIX IV 40 MG IV (08:16)
[2025-03-04] MEDS: TYLENOL 650 MG PO (08:18)
[2025-03-04] MEDS: FLUSH (NSS) 2 FLUSH IV (08:18)
--- NOTE | 2025-03-04 08:54 | CM ---
Reviewed the chart notes. Patient for discharge today to her parent's home in [place]. Patient's friend to transport. Patient will go to [facility] Room today for IV abx teaching. CM continues to be available to patient/family and is
monitoring medical plan for needs at discharge.
Plan: Discharge to home with IV abx through [facility].
[facility] Fax #: [phone]
--- NOTE | 2025-03-04 09:01 | W.PN.HOSP.TC ---
Today's Communication/Plan
-
dc home today
Assessment / Plan
Assessment / Plan
Assessment:
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
- CT with more definitive/clear evidence of colovaginal fistula as well as new colovesicular fistula.
- patient with failure of outpatient antibiotics
- continue Ertapenem per ID for at least 2 weeks. PICC to be placed for home IV Antibiotics.
- follow colorectal Surgery recommendations - nonoperative management for now. OP f/u
- diet: low residue
- pain control, anti-emetics
DM-II
- resume PO medications at discharge
- Follow glucose and cover with SSI as needed.
- A1c 7.4% recently
Asthma without Acute Exacerbation
- Stable. Continue home inhaler regimen.
- Albuterol PRN.
Obesity due to excess calories
- Affects all aspects of care.
- Encourage healthy diet and increased activity with goal of weight loss.
DVT Prophylaxis: SCDs
Code Status: Full
More than 30 minutes spent in discharge including
Final examination of the patient
Summarizing hospital stay
Instructions for continuing care to all relevant caregivers
Preparation of discharge records, prescriptions, and referral forms
Total time spent (in minutes): 41
Anticipated Discharge: Today
Subjective/Interval History
-
Date of Service: March 04, 2025
resting comfortably, no complaints except mild headache
tolerating LRD
Objective Data
-
Labs:
Laboratory Results
03/04/25
03:51
WBC 6.3
Hgb 10.5 L
Hct 32.7 L
Plt Count 238
Sodium 139
Potassium 4.0
Chloride 108 H
Carbon Dioxide 27
BUN 4 L
Creatinine 0.4 L
Glucose 142 H
Calcium 8.8
Vital Signs:
Vital Signs
Temp Pulse Resp BP Pulse Ox
98.0 F 59 16 145/65 99
03/04/25 07:00 03/04/25 07:00 03/04/25 07:00 03/04/25 07:00 03/04/25 07:00
I&O
03/03/25 03/04/25 03/05/25
06:59 06:59 06:59
Intake Total 1290 / 1290 2440 / 2440
Balance 1290 / 1290 2440 / 2440
Physical Exam
-
General: No Apparent Distress
HEENT: Normocephalic and Atraumatic
Respiratory: Negative Wheezes
Cardiac: Regular Rhythm and S1/S2
GI: Soft and Nontender
Neuro: AO x 3
Psych: Calm
Data Reviewed
-
Total Time Spent with Patient (in minutes): 41
Labs: Labs Reviewed by me
--- NOTE | 2025-03-04 09:07 | W.DCSUMMARY ---
Discharge Summary
Discharge Data
Date of Admission: 03/01/25
Date of Discharge: 03/04/25
-
Pending Results: No
Hospital Course
59 y/o F with history of chronic diverticulitis presented 03/01 with abdominal pain and fevers. She had a recent diverticulitis episode 02/03 to 02/05. She did not improve with oral antibiotics. She was admitted here with an acute diverticulitis flare.
Also found to have Colovaginal Fistula and Colovesicular Fistula. She was started on IV antibiotics (Ertapenem) and a PICC line was placed. Her pain was controlled and diet was advanced to low residue diet. She was discharged 03/04 to home with home
infusion services. She will follow up with Colorectal surgery outpatient to plan definitive surgical intervention.
Discharge Plan
-
Patient Disposition: Home (Routine Discharge)
Discharge Diagnosis/Procedures: acute on chronic diverticulitis with fistula formation
Condition: Fair
Diet: Low Residue
Activity: As tolerated
Referrals:
Nahun Gallego MD [Active, ColoRectal]
Referral Note: call to confirm scheduled appointment
Dary Kendall MD [Family Provider, Family Practice]
Prescriptions:
New
ertapenem 1 gram recon soln
1 g IV Q24H 14 Days
Continued
glyburide-metformin 1.25 MG/250 MG tablet
1 tab PO TID
alprazolam [Xanax] 0.25 mg Tablet
0.25 mg PO HS
cholecalciferol (vitamin D3) [Vitamin D3] 25 mcg (1,000 unit) Tablet
25 mcg PO DAILY
magnesium oxide 400 mg magnesium Tablet
250 mg PO BID
fluticasone furoate-vilanterol [Breo Ellipta] 100-25 mcg/dose Blister With Device
1 inh INHALATION R DAILYPRN PRN (Reason: SOB)
acetaminophen [Tylenol] 325 mg Tablet
650 mg PO Q6HPRN PRN (Reason: MILD PAIN)
therapeutic multivitamin Tablet
1 tab PO DAILY
oxycodone-acetaminophen 5-325 mg Tablet
1 tab PO DAILYPRN PRN (Reason: SEVERE PAIN)
ondansetron 4 mg tablet,disintegrating
4 mg PO Q8H PRN (Reason: GI upset) Qty: 21 0RF
Discharge Orders:
Discharge Patient (As Directed); Ordered 03/04/25
Ordered By: Zen Rodriguez
Discharge Date and Time
Print Language: HUNGARIAN
--- NOTE | 2025-03-04 09:46 | W.PN.ID1 ---
Date of Service
Date of Service: March 04, 2025
Today's Communication
Continue antibiotics.
Assessment / Plan
Recurrent diverticulitis
- Failed outpatient antibiotic therapy
Suspicion for colovesical / colovaginal fistula
DM
Asthma
Recommendations:
Continue ertapenem 1 gm IV q.24 hours for an additional 2 weeks (+/-).
Home infusion prescription previously placed on paper chart.
PICC line placed.
For discharge today.
Will follow outpatient CBC and BMP.
Patient to follow-up with Colorectal surgery regarding eventual surgery.
����������������������������������������������������������
Chief Complaint
-: Other (Diverticulitis)
Subjective / Review of Systems
Review of Systems: No Fever, No Chills and No Abdominal Pain
Vital Signs / Physical Exam
Vital Signs
Vital Signs
Temp Pulse Resp BP Pulse Ox
98.0 F 59 16 145/65 95
03/04/25 07:00 03/04/25 07:00 03/04/25 07:00 03/04/25 07:00 03/04/25 09:00
Physical Exam
Constitutional: No Acute Distress, Comfortable, Non-toxic and Obese
Eyes: No Conjunctival Hemorrhage and Sclera Anicteric
Cardiovascular: S1/S2; Negative S3/S4
Pulmonary: Non Labored
Gastrointestinal: Soft, Non Distended and Normal Bowel Sounds
Extremities: Negative Clubbing or Cyanosis
Neurological: Awake and Alert
Psychological: Calm
Objective Data
Lab Data
Lab Results
03/04/25 03:51
03/04/25 03:51
Estimated Creat Clear 123 ml/min 03/04/25 03:51
Total Bilirubin 0.3 mg/dl (0.2-1.3) 03/01/25 06:54
AST 20 U/L (14-36) 03/01/25 06:54
ALT 12 U/L (0-35) 03/01/25 06:54
Alkaline Phosphatase 65 U/L (38-126) 03/01/25 06:54
Most recent labs reviewed.
Micro Results:
02/28/25 20:33 Urine Culture - Final
Urine No Significant Growth
Imaging:
03/01/2025 CT abdomen/pelvis with contrast: sigmoid diverticulitis is unchanged, with moderate surrounding inflammation. On the wall of the sigmoid there is an intramural abscess versus focally inflamed diverticulum, unchanged from prior study. Air
in the vaginal canal consistent with possible colovaginal fistula. Air is noted in the bladder with a lack of fat plane between the inflammation in the bladder. Colovesicle fistula cannot be excluded. Please see full dictation for additional
detail.
Care Review
Plan reviewed with: Physician (Hospitalist)
--- NOTE | 2025-03-04 10:10 | W.PN.CRS1 ---
Today's Communication / Plan
-
Okay for discharge from our perspective
Follow-up in the office with Dr. Gallego next week as scheduled
IV antibiotics per ID
Assessment/Plan
-
Assessment: 59-year-old female with multiple attacks of diverticulitis in the past presents to [facility] with 2 days of abdominal pain and found to have sigmoid diverticulitis and a possible colovaginal fistula on CT
Plan:
- Continue low residue diet
- Continue IV antibiotics. Appreciate ID. Invanz q 12 hours. Likely 2 weeks of outpatient antibiotics.
- No plans for surgery during this admission.
- Potential discharge today with short term follow-up in our office to schedule surgery.She has an appointment on March [address] Gallego at 1 PM.
Subjective Data
Subjective Data
Date of Service: March 04, 2025
Patient states that she feels well. She has been tolerating a diet without issue. Has bowel function. Overall is felt much better since her admission.
Objective Data
-
Vital Signs
Temp Pulse Resp BP Pulse Ox
98.0 F 59 16 145/65 95
03/04/25 07:00 03/04/25 07:00 03/04/25 07:00 03/04/25 07:00 03/04/25 09:00
Intake & Output
03/03/25 03/04/25 03/05/25
06:59 06:59 06:59
Intake Total 1290 / 1290 2440 / 2440
Balance 1290 / 1290 2440 / 2440
Intake:
Oral fluids 720 / 720 2440 / 2440
IV fluids (Total) 520 / 520
IV piggybacks 50 / 50
Other:
Number of approximated MODERATE 3 2
amounts of urine
Number of approximated LARGE 1
amounts of urine
Lab Results
03/04/25 03:51
03/04/25 03:51
Physical Exam
-
General: No Acute Distress and AOx3
Abdomen: Soft, Non Distended and Non Tender
Skin: Warm and Dry
[2025-03-04 11:00] VITALS: BP 146/79
[2025-03-04] MEDS: NOVOLOG FLEXPEN-LOW RESISTANCE SC (12:30)
== END 2025-03-04 12:15 | disposition home or self-care (01) | DRG 699 ==
LOC: 2 SOUTH 03:42
PROVIDERS: Radiology Diagnostic Radiology; ADMITTING PHYSICIAN Hospitalist; ATTENDING PHYSICIAN Internal Medicine; CONSULT PHYSICIAN Internal Medicine Infectious Disease; CONSULT PHYSICIAN Surgery; EMERGENCY PHYSICIAN Student in an Organized Health Care Education/Training Program; FAMILY PHYSICIAN Internal Medicine
PROC: 02HV33Z Insertion of Infusion Device into Superior Vena Cava, Percutaneous Approach (ICD-10-PCS; 2025-03-03)
DX: N32.1 Vesicointestinal fistula (principal); K57.32 Diverticulitis of large intestine without perforation or abscess without bleeding; E11.9 Type 2 diabetes mellitus without complications; J45.909 Unspecified asthma, uncomplicated; E66.09 Other obesity due to excess calories; G47.33 Obstructive sleep apnea (adult) (pediatric); K59.00 Constipation, unspecified; Z88.0 Allergy status to penicillin; Z88.1 Allergy status to other antibiotic agents; Z79.899 Other long term (current) drug therapy; Z79.51 Long term (current) use of inhaled steroids; Z87.891 Personal history of nicotine dependence; Z90.710 Acquired absence of both cervix and uterus; Z90.49 Acquired absence of other specified parts of digestive tract; Z68.34 Body mass index [BMI] 34.0-34.9, adult; Z79.84 Long term (current) use of oral hypoglycemic drugs
CPT/HCPCS: 71045; 74177; 80048; 80053; 81003; 81015; 82248; 82962; 83690; 85025; 85027; 87086; 96374; 96375; 99285; J1335; Q9967

== ENCOUNTER 2025-04-03 01:15 | Inpatient (IN) | payer OTHER, SELFPAY ==
[2025-04-02 20:01] VITALS: BP 187/78
[2025-04-02 20:26] LABS: Hematocrit 38.3 % (37.0-47.0); Hemoglobin 12.7 g/dL (12.0-16.0); Mean Corp Hgb Conc. 33.2 g/dL (33.0-37.0); Mean Corpuscular Volume 84.2 fL (81.0-99.0); Nucleated Red Blood Cells % 0 %; Platelet Count 298 10^3/uL (130-400); Red Cell Dist. Width 12.9 % (11.5-14.5)
[2025-04-02 20:43] LABS: ALT (SGPT) 16 U/L (0-35); AST (SGOT) 22 U/L (14-36); Albumin 4.4 g/dl (3.5-5.0); Alkaline Phosphatase 77 U/L (38-126); Blood Urea Nitrogen 11 mg/dl (7-17); Calcium 9.2 mg/dl (8.4-10.2); Carbon Dioxide 25 mmol/L (22-30); Chloride 103 mmol/L (98-107); Glucose 202 mg/dl (70-99); Potassium 4.4 mmol/L (3.5-5.1); Sodium 137 mmol/L (135-145); Total Protein 7.8 g/dl (6.3-8.2); eGFR > 60.00
--- NOTE | 2025-04-03 00:13 | ED.GENMED ---
History of Present Illness
General
Chief Complaint: Abdominal Symptoms
Source: patient
Time Seen by Provider: 04/02/25 23:58
History of Present Illness
History of Present Illness:
This patient is a 59-year-old female with a history of chronic diverticulitis most recently hospitalized February 2025 presents emergency department after having outpatient CAT scan consistent with diverticulitis and microperforation. Patient states
that when she was here most recently in late February, she was told that she will potentially need surgery as there was suspicion for a colovaginal and colovesicular fistula. She met with a pen surgeon this week and was referred for CAT scan which
was resulted today leading to her recommendation to go to the emergency department for admission. Patient states that she became symptomatic again earlier this week described as mild to moderate discomfort in the pelvic area. This is without
radiation, exacerbating, relieving factors. She denies associated nausea, vomiting, anorexia, fever, chills, chest pain, shortness of breath, vaginal bleeding or discharge. She does note that she noticed a small amount of blood and mucus in her
stools this week. Patient otherwise denies complaints
Past History
Past History
ED Past Medical History: NIDDM and Other (Diverticulitis, sleep apnea, anxiety)
ED Past Surgical History: Cholecystectomy, , Gynecological and Orthopedic
Social History
Tobacco: Former smoker
Alcohol: None
Drug: None
Living: with family
Employment: Employed
Phy Exam
Physical Exam
Physical Exam:
GENERAL: Alert , in no apparent distress
EYE: pupils equal and reactive
NECK: Supple, no significant adenopathy.
ENT: o/p clr, mmm.
CARDIAC: Regular rate and rhythm .
LUNGS: Clear breath sounds bilaterally, no acute respiratory distress, no wheezes/rales/rhonchi
ABDOMEN: Soft, mild suprapubic tenderness, no r/g, no cvat
NEUROLOGICAL: Alert and oriented, no focal neuro deficits
SKIN: Warm and dry, skin intact.
MUSCULOSKELETAL: No edema, well perfused.
PSYCH: Normal and appropriate interaction.
Course
Orders/Labs/Results
Orders:
Orders
04/02/25 20:14
Complete Blood Count/With Diff Urgent
Comprehensive Metabolic Panel Urgent
Lactic Acid Urgent
Blood Culture Urgent
ARIANNA Source: Blood/Venous
Specimen Description:
04/03/25 00:11
Morphine Sulfate 4 mg IV NOW STA
04/03/25 00:12
Ertapenem [Invanz] 1,000 mg 0.9% Sodium Chloride [Nss] 50 ml IV NOW
Abnormal Lab Results
04/02/25
20:14
Absolute Monos (auto) 0.7 H 10^3/uL
(0.1-0.6)
Monocytes % 9.5 H %
(1.7-9.3)
Creatinine 0.4 L mg/dL
(0.6-1.0)
Glucose 202 H mg/dl
(70-99)
04/02/25 20:14
04/02/25 20:14
Vital Signs
Initial and Last Documented VS:
Initial Vital Signs
Temp Pulse Resp BP Pulse Ox
97.9 F 66 18 187/78 99
04/02/25 20:01 04/02/25 20:01 04/02/25 20:01 04/02/25 20:01 04/02/25 20:01
Last Documented Vital Signs
Temp Pulse Resp BP Pulse Ox
97.9 F 66 18 187/78 99
04/02/25 20:01 04/02/25 20:01 04/02/25 20:01 04/02/25 20:01 04/02/25 20:01
*Pulse Oximetry
SaO2: 99
Oxygen Mode of Delivery: Room air
Patient hypoxic: no
*Critical Care Note
Total Time (30-74mins, 75-104mins- exclusive of procedures): Not Applicable
Update Note
Update Note:
Patient presents to the Emergency Department with ___abdominal pain
Number and Complexity of Problems Addressed at the Encounter
� Chronic conditions affecting care:
� Acute Exacerbation and/or Progression of Chronic Illness:
� Differential Diagnosis includes: But not limited to diverticulitis, abscess, fistula, appendicitis, UTI, etc. etc.
Amount and/or Complexity of Data to be Reviewed and Analyzed
� I performed an independent evaluation of and my interpretation is:
EKG:
CT:
Xrays:
Laboratory Studies:
Other:
� Review of other/old records reveals: Patient was admitted February 2025 she was started on IV antibiotics and discharged with a PICC line to continue for another 2 weeks. The plan at that time was outpatient surgical follow-up
to discuss surgical intervention.
� Clinical information was obtained by an independent historian: I reviewed [facility] CAT scan report from today which shows distal sigmoid diverticulitis associated with perforation and small phlegmon versus developing abscess
� Prescriptions/Medications Considered but not given:
� Further testing considered but not performed:
Risk of Complications and/or Morbidity or Mortality of Patient Management
� Social determinants of health affecting care:
� Discussion with other providers (PCP, Hospitalists, Consultants, etc):
� Escalation of care including admission/observation vs risk of discharge considered: 12:17 AM patient overall quite comfortable. Not septic, no peritonitis. Will admit for IV antibiotics, colorectal consult in a.m., etc.
ED Attending Note
-
Portions of this chart may have been created with voice recognition software.� Occasional wrong word or��sound alike� substitutions may have occurred due to the inherent limitations of voice recognition software.
Discharge Plan
Departure
Patient Disposition: Admit
Date of Disposition: 04/03/25
Time of Disposition: 00:17
Presentation/result/management discussed w/ accepting MD/DO: Hospitalist
Condition: Good
Discharge Problem:
Diverticulitis
Prescriptions:
No Action
glyburide-metformin 1.25 MG/250 MG tablet
1 tab PO TID
alprazolam [Xanax] 0.25 mg Tablet
0.25 mg PO HS
cholecalciferol (vitamin D3) [Vitamin D3] 25 mcg (1,000 unit) Tablet
25 mcg PO DAILY
magnesium oxide 400 mg magnesium Tablet
250 mg PO BID
fluticasone furoate-vilanterol [Breo Ellipta] 100-25 mcg/dose Blister With Device
1 inh INHALATION R DAILYPRN PRN (Reason: SOB)
acetaminophen [Tylenol] 325 mg Tablet
650 mg PO Q6HPRN PRN (Reason: MILD PAIN)
therapeutic multivitamin Tablet
1 tab PO DAILY
oxycodone-acetaminophen 5-325 mg Tablet
1 tab PO DAILYPRN PRN (Reason: SEVERE PAIN)
ondansetron 4 mg tablet,disintegrating
4 mg PO Q8H PRN (Reason: GI upset) Qty: 21 0RF
ertapenem 1 gram recon soln
1 g IV Q24H 14 Days
Referrals:
Dary Kendall MD [Family Provider, Family Practice]
Interventions
Interventions:
*Risk Screen - Suicide Last Done: 04/02/25 20:04
*Neglect/Abuse Screening Last Done: 04/02/25 20:04
Discharge Date and Time
Print Language: WELSH
[2025-04-03 00:18] VITALS: BMI 33.5
[2025-04-03 00:28] VITALS: BP 152/76
[2025-04-03] MEDS: MORPHINE SULFATE 4 MG IV (00:34)
--- NOTE | 2025-04-03 00:36 | HPS.HSE ---
Family Physician
-
Family Physician: Dary Kendall MD
Chief Complaint
-
Outpatient CT scan showing worsening diverticulitis
History of Present Illness
This is a 59-year-old female with past medical history significant for recurrent diverticulitis, asthma, [id number] diabetes, anxiety who presents to the emergency department after follow-up CT scan as an outpatient shows worsening
diverticulitis complicated by microperforation and developing abscess.
Patient was diagnosed with episode of diverticulitis in February. At that time it was complicated by a colovesicular and colovaginal fistula when she was treated with IV antibiotics (ertapenem). Patient went home on IV ertapenem and finished a
course. She was to follow-up with colorectal surgery to have definitive surgical intervention. Patient had a surgery scheduled, but had a second opinion and a repeat CT scan which was done as outpatient today. On the CT scan she was found to have
a microperforation and a small developing abscess.
She reports having 3 days of nausea, abdominal pain, bloody and mucus containing stools prior to the CT scan.
She has no fevers or chills. She denies any nausea or vomiting. She denies any changes in urinary or bowel habits.
Here in the Emergency Department she is afebrile, blood pressure was 150/76 with a pulse of 71 and she was satting 98% on room air. White count was only 7.4 hemoglobin 12.7 platelet counts over 200. Electrolytes BUN/creatinine were all normal.
Medical History
Past Medical History
Past Medical History: Reports Other
Additional Past Medical History:
DM-II
UMA not on CPAP
Recurrent Sigmoid Diverticulitis
Obesity
Asthma
Past Surgical History: Reports Other
Additional Past Surgical History:
Cholecystectomy
Hysterectomy
Social History
Tobacco: Former Smoker (Quit smoking many years ago.)
Alcohol: None
Drug: None
Family History
Family History: Not pertinent
Allergies / Home Medications
Allergies reflects when Allergies were last updated in [facility]..
Home Medications with original date entered in [facility].
Allergy/Medication List:
Allergies
Allergy/AdvReac Type Severity Reaction Status Date / Time
ciprofloxacin (From Cipro) Allergy Unknown Verified 02/28/25 22:31
levofloxacin (From Levaquin) Allergy palpitation Verified 02/28/25 22:31
s
Penicillins Allergy rash as a Verified 02/28/25 22:31
child;
tolerated
ceftriaxone
& cefdinir
Home Medications
glyburide 1.25 mg-metformin 250 mg tablet 1 tab PO TID Diabetes 08/03/19
alprazolam 0.25 mg tablet (Xanax) 0.25 mg PO HS Mental Health/Anxiety 11/15/22
cholecalciferol (vitamin D3) 25 mcg (1,000 unit) tablet (Vitamin D3) 25 mcg PO DAILY Supplement 11/15/22
fluticasone furoate 100 mcg-vilanterol 25 mcg/dose inhalation powder (Breo Ellipta) 1 inh inhalation R DAILYPRN PRN SOB 11/15/22
magnesium oxide 250 mg PO BID Supplement 11/15/22
acetaminophen 325 mg tablet (Tylenol) 650 mg PO Q6HPRN PRN MILD PAIN 02/03/25
oxycodone-acetaminophen 5 mg-325 mg tablet 1 tab PO DAILYPRN PRN SEVERE PAIN 02/03/25
therapeutic multivitamin 1 tab PO DAILY Supplement 02/03/25
ondansetron 4 mg disintegrating tablet 4 mg PO Q8H PRN GI upset #21 tabs 02/05/25
Review of Systems
-
Constitutional: Reports No Symptoms
EENT: Reports No Symptoms
Respiratory: Reports No Symptoms
Cardiac: Reports No Symptoms
Abdomen/GI: Reports No Symptoms
: Reports No Symptoms
Musculoskeletal: Reports No Symptoms
Skin: Reports No Symptoms
Neurological: Reports No Symptoms
Endocrine: Reports No Symptoms
Hematologic/Lymphatic: Reports No Symptoms
Psych: Reports No Symptoms
Physical Exam
Vital Signs
Vital Signs
Temp Pulse Resp BP Pulse Ox
97.9 F 71 15 152/76 99
04/02/25 20:01 04/03/25 00:18 04/03/25 00:18 04/03/25 00:28 04/03/25 00:18
Physical Exam
General: No Apparent Distress and Comfortable
HEENT: Moist mucous membranes and PERRLA
Respiratory: Clear; No Wheezes, Rales or Rhonchi
Cardiac: S1/S2, Regular Rhythm and Murmur (II/ WILMA)
GI: Soft, Non Tender, Non Distended and Normal Bowel Sounds
Rectal: Deferred by Provider
Genito-urinary: Deferred by me
Musculoskeletal: No Clubbing, No Cyanosis and No Edema
Skin: Warm
Neuro: AO x 3
Hematologic/Lymphatic: No Lymphadenopathy
Laboratory Results
-
04/02/25 20:14
04/02/25 20:14
Laboratory Results
Lactic Acid 2.0 mmol/L (0.7-2.0) 04/02/25 20:14
Total Bilirubin 0.5 mg/dl (0.2-1.3) 04/02/25 20:14
AST 22 U/L (14-36) 04/02/25 20:14
ALT 16 U/L (0-35) 04/02/25 20:14
Alkaline Phosphatase 77 U/L (38-126) 04/02/25 20:14
Data Reviewed
-
CT Scan: Report Reviewed by me
Lab Data: Labs Reviewed by me
Old Records: Reviewed
Impression/Plan
-
IMPRESSION:
59 y.o with diverticulitis complicated by colovesicular and colovaginal fistula s/p prolonged IV Ertapenem at home with scheduled definitive surgical management, now presents to ED after outpatient CT scan ordered for second opinion showed
microperforation and a small developing abscess. She had 3 days of new symptoms of abdominal pain and nausea and bloody mucus containing stools prior to the CT scan. Currently, afebrile, no leukocystosis, HD stable, non-toxic appearing, benign
abdominal examination.
PLAN:
Complicated diverticulitis without sepsis. - Microperforation and small developing abscess noted on outpatient CT. No mention of fistulae
- admit to med/surg
- IV ertapenem
- NPO for now
- IV fluids, antiemetics and pain control
- ID consult
- surgical consultation
DM II
- hold metformin
- sliding scale insulin
Asthma - stable
- continue inhalers
DVT PPX - lovenox sq
Code status - full code
[2025-04-03] MEDS: INVANZ 60 MG IV (01:11)
[2025-04-03 01:47] VITALS: BMI 33.0
[2025-04-03 01:48] VITALS: BP 127/73
[2025-04-03] MEDS: LR 1000 IV (02:26)
[2025-04-03] MEDS: TORADOL 10 MG IV ×2 (02:32→18:16)
--- NOTE | 2025-04-03 05:31 | PTCARENOTE ---
0200 pt admitted to [facility] from ER. pt ambulated from stretcher to bed. Oriented to room, call whitaker and inst on POC. admission assessment completed.
[2025-04-03 05:41] LABS: Glucose - Point of Care 90 mg/dl (70-99)
[2025-04-03] MEDS: MORPHINE SULFATE 2 MG IV ×2 (05:49→10:06)
[2025-04-03 07:35] VITALS: BP 116/45
[2025-04-03 08:55] LABS: Hematocrit 34.3 % (37.0-47.0); Hemoglobin 11.3 g/dL (12.0-16.0); Mean Corp Hgb Conc. 32.9 g/dL (33.0-37.0); Mean Corpuscular Volume 86.6 fL (81.0-99.0); Platelet Count 264 10^3/uL (130-400); Red Cell Dist. Width 13.0 % (11.5-14.5)
[2025-04-03 09:55] LABS: Blood Urea Nitrogen 11 mg/dl (7-17); Calcium 8.5 mg/dl (8.4-10.2); Carbon Dioxide 26 mmol/L (22-30); Chloride 105 mmol/L (98-107); Estimated Creatinine Clearance 121 ml/min; Glucose 89 mg/dl (70-99); Potassium 4.1 mmol/L (3.5-5.1); Sodium 138 mmol/L (135-145); eGFR > 60.00
[2025-04-03] MEDS: ZOFRAN 4 MG IV (10:08)
[2025-04-03] MEDS: TYLENOL 650 MG PO (10:09)
--- NOTE | 2025-04-03 10:46 | CON.ID ---
Consultation
-
Date/Time Consultation Requested: April 03, 2025 0142
Date/Time Consultation Performed: April 03, 2025 1050
Requesting Provider: Dr. Zen Rodriguez
Performing Provider: Dr. Cristina See
Reason for Consultation: Perforated sigmoid diverticulitis s/p recent course ertapenem
Chief Complaint / Past History
Chief Complaint
Abd pain, abnormal CT
History of Present Illness
59-year-old female with history of DM, diverticulitis, recently hospitalized February 28 - March 04 with recurrent sigmoid diverticulitis, intramural abscess, air vaginal canal concerning for colovaginal fistula; she was discharged on ertapenem 1 g
IV every 24 hours for an additional 2 weeks. She was doing well while on the IV abx,, completed 2 weeks ago. She was scheduled for sigmoidectomy with colorectal in April. In the meantime, she went for second opinion at [facility]. Outside repeat CT
showed progression of diverticulitis with microperforation and developing abscess. She therefore presented back to the ER April 02. She reports for the past 3 to 4 days, she has recurrence of the abdominal pain and mucousy stool. Positive
malaise. No fevers or chills. Denies foamy urine. No urinary symptoms.
Past History
Additional Past Medical History:
DM
Asthma
Diverticulitis
UMA on CPAP
Additional Past Surgical History:
AMELIA
Cholecystectomy
Femur fracture
Allergy History:
ciprofloxacin (From Cipro) Allergy (Verified 02/28/25 22:31)
Unknown
levofloxacin (From Levaquin) Allergy (Verified 02/28/25 22:31)
palpitations
Penicillins Allergy (Verified 02/28/25 22:31)
rash as a child; tolerated ceftriaxone & cefdinir
Medications Reviewed: Yes
Current Antibiotics:
Ertapenem
Social History
Tobacco: Non-Smoker
Alcohol: None
Drug: None
Employment: Employed
Family History
Family History: Not Pertinent
Review of Systems
Review of Systems
General: Change in Appetite; Negative Fever or Chills
HEENT: Negative Sinus Problems or Headache
Respiratory: Negative Dyspnea or Cough
Gasteroenterology: Negative Nausea, Vomiting or Diarrhea
Genital / Urological: Negative Dysuria or Flank Pain
Endocrine: Weakness
All systems: All other systems were reviewed and were negative
Vital Signs
Temp Pulse Resp BP Pulse Ox
97.9 F 68 16 116/45 98
04/03/25 07:35 04/03/25 07:35 04/03/25 07:35 04/03/25 07:35 04/03/25 07:35
Physical Exam
Physical Exam
Constitutional: No Acute Distress
Eyes: No Conjunctival Hemorrhage and Sclera Anicteric
Cardiovascular: Regular Rate and S1/S2
Pulmonary: Clear
Gastrointestinal: Soft, Tender (Lower abd mid to left side), Non Distended and Normal Bowel Sounds
Extremities: Negative Edema
Neurological: AO x 3
Lab / Diagnostic Study Results
04/03/25 07:09
04/03/25 07:09
Abs Immat Gran (auto) 0.0 10^3/uL (0-0.05) 04/02/25 20:14
Absolute Neuts (auto) 4.7 10^3/uL (1.4-6.5) 04/02/25 20:14
Absolute Lymphs (auto) 1.6 10^3/uL (1.2-3.4) 04/02/25 20:14
Absolute Monos (auto) 0.7 10^3/uL (0.1-0.6) H 04/02/25 20:14
Absolute Basos (auto) 0.1 10^3/uL (0-0.2) 04/02/25 20:14
Immature Gran % 0.5 % (0-0.5) 04/02/25 20:14
Neutrophils % 63.2 % (42.2-75.2) 04/02/25 20:14
Lymphocytes % 21.9 % (20.5-51.1) 04/02/25 20:14
Monocytes % 9.5 % (1.7-9.3) H 04/02/25 20:14
Eosinophils % 3.7 % (0-6) 04/02/25 20:14
Basophils % 1.2 % (0-2) 04/02/25 20:14
Lactic Acid 2.0 mmol/L (0.7-2.0) 04/02/25 20:14
Microbiology Results
Micro:
04/02/25 20:14 Blood Culture - Pending
Blood/Venous
03/01/25 CT a/p: There is sigmoid diverticulitis unchanged with moderate surrounding inflammation. Along the wall of the sigmoid there is a intramural abscess versus focally inflamed diverticulum, unchanged. There is air in the vaginal canal
consistent with a possible colovaginal fistula. There is air in the bladder with lack of fat plane between the inflammation in the bladder. Colovesical fistula cannot be excluded.
Assessment / Plan
# Recurrent sigmoid diverticulitis with progression, micro-perforation, developing abscess (outside CT)
. Recently completed >2 week course of Ertapenem 2 weeks ago.
# Allergy to PCN, FQ
# DM
Plan:
- DC Ertapenem
-Start meropenem 500mg IV q6.
- Drain abscess if >2cm
[2025-04-03 11:14] LABS: C-Reactive Protein 28.50 mg/L (0.0-10.00)
--- NOTE | 2025-04-03 11:33 | W.PN.UPDATE ---
Update Note
Progress Note Update
admitted just after midnight with recurrent diverticulitis
recently admitted late February with recurrent diverticulitis with small abscesses - completed 2 weeks of IV Ertapenem. In the interim had a 2nd opinion at [facility] with CT showing ongoing acute diverticulitis with microperforation and abscess.
Currently pain is well controlled
No nausea/vomiting
Assessment:
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
- outpatient CT with abscess and microperforation
- recent episode of Acute/Chronic Sigmoid Diverticulitis completed 2 weeks IV Ertapenem
- NPO/IVF
- pain control, anti-emetics
- continue Merrem, q6h; may need IV abx again, possibly longer than 2 weeks
- ID and surgery consults
DM-II
- hold PO medications
- Follow glucose and cover with SSI as needed.
- A1c 7.4% recently
Asthma without Acute Exacerbation
- Stable. Continue home inhaler regimen.
- Albuterol PRN.
Obesity due to excess calories
- Affects all aspects of care.
- Encourage healthy diet and increased activity with goal of weight loss.
DVT Prophylaxis: Lovenox
Code Status: Full
[2025-04-03 11:46] LABS: Glucose - Point of Care 125 mg/dl (70-99)
[2025-04-03] MEDS: MERREM 500 MG IV ×2 (12:49→17:59)
[2025-04-03] MEDS: STERILE WATER FOR INJECTION 10 ML IV ×2 (12:49→18:00)
--- NOTE | 2025-04-03 13:01 | CM ---
Met with patient at bedside
Pharmacy verified: [facility]
Lives w family; multilevel home; 1 step to enter; 1st floor set; hospital bed; bath has tub w/ shower
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
DME: CPAP but does not use it; uses Father[employer] Glucometer; Portable O2 tank - Oxygen 2 liters NC @ night (vendor unknown); pulse oximeter
SNF stay 2022 @ [facility]; Outpatient Infusion for IV ABS w/ [facility]
Will drive self home
Plan: Discharge to home when stable; Will probably need Home Infusion services; agency options identified; preference is Home Infusion w/ [facility]
--- NOTE | 2025-04-03 13:22 | CON.CRS ---
Addendum entered and electronically signed by Robbie Cleary MD 04/03/25 15:45:
I saw and examined the patient.
The FOOD SERVICE ASSISTANT's note was reviewed and I agree with the note.
Comment: Known to CRS service for diverticulitis with c-v fistula and plan for OR next month, rpt scan with disease progression, c/o ower ab pain and ttp, belly soft, ttp to llq and suprapubic area, would treat with iv abx for now, ID recs
appreciated
Original Note:
Consultation
-
Date/Time Consultation Performed: 04/03/25 1125
Medical History
-
Chief Complaint: abdominal pain
History of Present Illness:
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 She was scheduled for
surgery with CRS on May 06 and was also seeing CRS at [facility] for a second opinion with CT imaging obtained as an outpatient which demonstrated progression of diverticulitis with microperforation and developing abscess (image not available). She
presented through the ED yesterday for evaluation. She notes that for the past few days, she has had increasing suprapubic discomfort with mucous in the stool as well as streaks of blood. She is tender to this area on exam. She denies fevers or
chills. She denies voiding difficulties.
Past Medical History
Past Medical History: Diverticulitis, NIDDM and Other (penelope on cpap, obesity, asthma)
Past Surgical History: Cholecystectomy, , Gynecological (AMELIA) and Other (Last colonoscopy was by Dr. Angel at [facility] about 2 years ago which showed polyps)
Social History
Tobacco: Former Smoker
Alcohol: None
Family History
Family History: Reviewed & Not Pertinent
Allergies / Home Medications
Allergy/AdvReac Type Severity Reaction Status Date / Time
ciprofloxacin (From Cipro) Allergy Unknown Verified 02/28/25 22:31
levofloxacin (From Levaquin) Allergy palpitation Verified 02/28/25 22:31
s
Penicillins Allergy rash as a Verified 02/28/25 22:31
child;
tolerated
ceftriaxone
& cefdinir
�Medication �Instructions �Recorded �Confirmed �Type
glyburide 1.25 mg-metformin 250 mg 1 tab PO TID Diabetes 08/03/19 03/01/25 History
tablet
alprazolam 0.25 mg tablet (Xanax) 0.25 mg PO HS Mental Health/Anxiety 11/15/22 03/01/25 History
cholecalciferol (vitamin D3) 25 25 mcg PO DAILY Supplement 11/15/22 03/01/25 History
mcg (1,000 unit) tablet (Vitamin
D3)
fluticasone furoate 100 1 inh inhalation R DAILYPRN PRN SOB 11/15/22 03/01/25 History
mcg-vilanterol 25 mcg/dose
inhalation powder (Breo Ellipta)
magnesium oxide 250 mg PO BID Supplement 11/15/22 03/01/25 History
acetaminophen 325 mg tablet 650 mg PO Q6HPRN PRN MILD PAIN 02/03/25 03/01/25 History
(Tylenol)
oxycodone-acetaminophen 5 mg-325 1 tab PO DAILYPRN PRN SEVERE PAIN 02/03/25 03/01/25 History
mg tablet
therapeutic multivitamin 1 tab PO DAILY Supplement 02/03/25 03/01/25 History
ondansetron 4 mg disintegrating 4 mg PO Q8H PRN GI upset #21 tabs 02/05/25 03/01/25 Rx
tablet
ertapenem 1 gram solution for 1 g IV Q24H 14 days 03/04/25 Rx
injection
Review of Systems
-
History Source: Patient
All other systems: Negative unless noted
A 10 point review of systems was completed, and was negative except as per HPI.
Physical Exam
Vital Signs
Temp 97.9 F 04/03/25 07:35
Pulse 68 04/03/25 07:35
Resp Rate 16 04/03/25 07:35
Blood pressure 116/45 04/03/25 07:35
SaO2 98 04/03/25 07:35
04/02/25 04/03/25 04/04/25
06:59 06:59 06:59
Actual Weight 98.458 kg
Body Mass Index (BMI) 33.0
Lab Results / Allergies
04/03/25 07:09
04/03/25 07:09
WBC 10.5 10^3/uL (4.8-10.8) 04/03/25 07:09
Hgb 11.3 g/dL (12.0-16.0) L 04/03/25 07:09
Hct 34.3 % (37.0-47.0) L 04/03/25 07:09
Plt Count 264 10^3/uL (130-400) 04/03/25 07:09
Abs Immat Gran (auto) 0.0 10^3/uL (0-0.05) 04/02/25 20:14
Neutrophils % 63.2 % (42.2-75.2) 04/02/25 20:14
Allergy/AdvReac Type Severity Reaction Status Date / Time
ciprofloxacin (From Cipro) Allergy Unknown Verified 02/28/25 22:31
levofloxacin (From Levaquin) Allergy palpitation Verified 02/28/25 22:31
s
Penicillins Allergy rash as a Verified 02/28/25 22:31
child;
tolerated
ceftriaxone
& cefdinir
Physical Exam
General: Well Developed, Well Nourished and No Apparent Distress
HEENT: Normocephalic and Moist Mucous Membranes
Respiratory: Non Labored Respirations
GI: Soft, Non Distended and Tender (suprapubic)
Skin: Warm and Dry
Neuro: Awake, Alert and AO x 3
Psych: Calm
Data Reviewed
-
CT Scan: Report Reviewed by me, Discussed with Physician and Discussed with Patient
Labs: Labs Reviewed by me, Discussed with Physician and Discussed with Patient
Old Records: Reviewed
Assessment / Plan
-
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 She was scheduled for
surgery with CRS on May 06 and was also seeing CRS at [facility] for a second opinion with CT imaging obtained as an outpatient which demonstrated progression of diverticulitis with microperforation and developing abscess (image not available). She has
been having increasing suprapubic pain over the last 3-4 days with mucoid stools, tender on exam. Afebrile, VSS. No leukocytosis.
Plan:
Ok for clear liquids
ABX as per ID, on Invanz
Analgesics prn
Diabetic/medical management as per primary team
Will discuss timing of upcoming surgery with primary team on Saturday, no plans for emergent surgery at this time
[2025-04-03 14:48] VITALS: BP 118/48
[2025-04-03] MEDS: LR IV (16:03)
[2025-04-03 17:12] LABS: Glucose - Point of Care 148 mg/dl (70-99)
[2025-04-03 17:47] LABS: Hepatitis C Antibody Negative (Negative)
[2025-04-03] MEDS: NOVOLOG FLEXPEN-LOW RESISTANCE SC (17:58)
[2025-04-03] MEDS: LOVENOX 40 MG SC (17:59)
[2025-04-03 21:12] LABS: Glucose - Point of Care 141 mg/dl (70-99)
[2025-04-03] MEDS: XANAX 0.25 MG PO (21:49)
[2025-04-03 23:05] VITALS: BP 140/68
[2025-04-04] MEDS: STERILE WATER FOR INJECTION 10 ML IV ×5 (00:26→23:01)
[2025-04-04] MEDS: MERREM 500 MG IV ×5 (00:28→23:00)
[2025-04-04] MEDS: LR IV (02:00)
[2025-04-04] MEDS: TORADOL 10 MG IV (04:43)
[2025-04-04 08:14] LABS: Glucose - Point of Care 119 mg/dl (70-99)
[2025-04-04 08:18] VITALS: BP 102/65
[2025-04-04] MEDS: NOVOLOG FLEXPEN-LOW RESISTANCE SC (08:19)
[2025-04-04 08:33] LABS: Hematocrit 35.4 % (37.0-47.0); Hemoglobin 11.5 g/dL (12.0-16.0); Mean Corp Hgb Conc. 32.5 g/dL (33.0-37.0); Mean Corpuscular Volume 86.6 fL (81.0-99.0); Platelet Count 258 10^3/uL (130-400); Red Cell Dist. Width 12.9 % (11.5-14.5)
[2025-04-04 09:09] LABS: Blood Urea Nitrogen 7 mg/dl (7-17); Calcium 8.9 mg/dl (8.4-10.2); Carbon Dioxide 28 mmol/L (22-30); Chloride 106 mmol/L (98-107); Estimated Creatinine Clearance 121 ml/min; Glucose 111 mg/dl (70-99); Potassium 4.3 mmol/L (3.5-5.1); Sodium 139 mmol/L (135-145); eGFR > 60.00
--- NOTE | 2025-04-04 10:42 | W.PN.ID1 ---
Date of Service
Date of Service: April 04, 2025
Today's Communication
Continue meropenem.
Assessment / Plan
# Recurrent sigmoid diverticulitis with progression, micro-perforation, developing abscess (outside CT)
. Recently completed >2 week course of Ertapenem 2 weeks ago.
# Allergy to PCN, FQ
# DM
Plan:
- Continue meropenem 500mg IV q6 (d2)
- Drain abscess if >2cm
Chief Complaint
-: Other (Diverticular abscess)
Subjective / Review of Systems
Abd pain better.
Vital Signs / Physical Exam
Vital Signs
Vital Signs
Temp Pulse Resp BP Pulse Ox
98.3 F 71 19 102/65 98
04/04/25 08:18 04/04/25 08:18 04/04/25 08:18 04/04/25 08:18 04/03/25 23:05
Physical Exam
Constitutional: No Acute Distress and Comfortable
Cardiovascular: Regular Rate and S1/S2
Pulmonary: Clear
Gastrointestinal: Soft, Non Tender, Non Distended and Normal Bowel Sounds
Genito-Urinary: Negative CVA Tenderness
Extremities: Negative Edema
Neurological: AO x 3
Objective Data
Lab Data
Lab Results
04/04/25 07:14
04/04/25 07:14
Estimated Creat Clear 121 ml/min 04/04/25 07:14
Lactic Acid 2.0 mmol/L (0.7-2.0) 04/02/25 20:14
Total Bilirubin 0.5 mg/dl (0.2-1.3) 04/02/25 20:14
AST 22 U/L (14-36) 04/02/25 20:14
ALT 16 U/L (0-35) 04/02/25 20:14
Alkaline Phosphatase 77 U/L (38-126) 04/02/25 20:14
C-Reactive Protein 28.50 mg/L (0.0-10.00) H 04/03/25 07:09
Most recent labs reviewed.
Micro Results:
04/02/25 20:14 Blood Culture - Preliminary
Blood/Venous No Growth in 24 hours- Final report to follow
03/01/25 CT a/p: There is sigmoid diverticulitis unchanged with moderate surrounding inflammation. Along the wall of the sigmoid there is a intramural abscess versus focally inflamed diverticulum, unchanged. There is air in the vaginal canal
consistent with a possible colovaginal fistula. There is air in the bladder with lack of fat plane between the inflammation in the bladder. Colovesical fistula cannot be excluded.
[2025-04-04 11:35] LABS: Glucose - Point of Care 180 mg/dl (70-99)
--- NOTE | 2025-04-04 11:57 | W.PN.HOSP.TC ---
Today's Communication/Plan
-
full liquids; f/u surgery recs
continue Abx per ID
Assessment / Plan
Assessment / Plan
Assessment:
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
- outpatient CT report: small rim-enhancing collection with some gas measuring 1.6x3.2x3.3 c/w phlegmon/abscess vs intramural abscess
- recent episode of Acute/Chronic Sigmoid Diverticulitis completed 2 weeks IV Ertapenem
- diet: advance to fulls
- pain control, anti-emetics
- continue Merrem, q6h; may need IV abx again, possibly longer than 2 weeks. ID following
- GS following; no role for IR intervention
DM-II
- hold PO medications
- Follow glucose and cover with SSI as needed.
- A1c 7.4% recently
Asthma without Acute Exacerbation
- Stable. Continue home inhaler regimen.
- Albuterol PRN.
Obesity due to excess calories
- Affects all aspects of care.
- Encourage healthy diet and increased activity with goal of weight loss.
DVT Prophylaxis: Lovenox
Code Status: Full
Anticipated Discharge: 24 - 48 hours
Subjective/Interval History
-
Date of Service: April 04, 2025
tolerating clear liquids; reports pain improving
Objective Data
-
Labs:
Laboratory Results
04/04/25
07:14
WBC 7.4
Hgb 11.5 L
Hct 35.4 L
Plt Count 258
Sodium 139
Potassium 4.3
Chloride 106
Carbon Dioxide 28
BUN 7
Creatinine 0.5 L
Glucose 111 H
Calcium 8.9
Vital Signs:
Vital Signs
Temp Pulse Resp BP Pulse Ox
98.3 F 71 19 102/65 98
04/04/25 08:18 04/04/25 08:18 04/04/25 08:18 04/04/25 08:18 04/03/25 23:05
I&O
04/03/25 04/04/25 04/05/25
06:59 06:59 06:59
Intake Total 2420 / 2420
Balance 2420 / 2420
Physical Exam
-
General: No Apparent Distress
HEENT: Normocephalic and Atraumatic
Respiratory: Negative Wheezes
Cardiac: Regular Rhythm and S1/S2
Genito-urinary: No Costovertebral Tender
Neuro: AO x 3
Psych: Calm
Data Reviewed
-
Total Time Spent with Patient (in minutes): 42
Labs: Labs Reviewed by me
[2025-04-04] MEDS: NOVOLOG FLEXPEN-LOW RESISTANCE 1 UNITS SC ×2 (12:05→17:00)
--- NOTE | 2025-04-04 14:14 | W.PN.CRS1 ---
Addendum entered and electronically signed by Robbie Cleary MD 04/04/25 18:25:
I saw and examined the patient.
The Assault Amphibious Vehicle Officer's note was reviewed and I agree with the note.
Comment: Feeling better, exam improved, minimal ttp to supra pubic area, plan to cont iv abx, liquid diet for now
Original Note:
Today's Communication / Plan
-
IV abx
Assessment/Plan
-
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 imaging obtained as an
outpatient which demonstrated progression of diverticulitis with microperforation and developing recurrent intramural abscess/phlegmon (report but not image available). Given location (intramural), would not recommend IR drainage.
Symptoms improved on IV abx
Afebrile, VSS. No leukocytosis.
Plan:
Ok for full liquids
ABX as per ID, on . Anticipate home on IV abx once again will consult CM
Analgesics prn
Diabetic/medical management as per primary team
Will discuss timing of upcoming surgery with primary team on Saturday, no plans for emergent surgery at this time
Subjective Data
Subjective Data
Date of Service: April 04, 2025
Pt seen and examined at bedside with Dr. Cleary. Denies n/v. Pain resolved. Feeling well.
Objective Data
-
Vital Signs
Temp Pulse Resp BP Pulse Ox
98.3 F 71 19 102/65 98
04/04/25 08:18 04/04/25 08:18 04/04/25 08:18 04/04/25 08:18 04/03/25 23:05
Intake & Output
04/03/25 04/04/25 04/05/25
06:59 06:59 06:59
Intake Total 2420 / 2420
Balance 2420 / 2420
Intake:
Oral fluids 960 / 960
IV fluids (Total) 1460 / 1460
Other:
Number of approximated MODERATE 1 1
amounts of urine
Number of approximated LARGE 3
amounts of urine
Number of unmeasured liquid
stools
Rectum 4
Lab Results
04/04/25 07:14
04/04/25 07:14
Physical Exam
-
General: No Acute Distress
HEENT: Grossly Normal
Abdomen: Soft, Non Distended and Tender (very minimal to suprapubic area)
Skin: Warm and Dry
[2025-04-04 15:39] VITALS: BP 147/70
[2025-04-04 16:27] LABS: Glucose - Point of Care 182 mg/dl (70-99)
[2025-04-04] MEDS: LOVENOX 40 MG SC (17:01)
[2025-04-04 21:21] LABS: Glucose - Point of Care 176 mg/dl (70-99)
[2025-04-04] MEDS: XANAX 0.25 MG PO (22:36)
[2025-04-04 23:21] VITALS: BP 148/64
[2025-04-05] MEDS: TORADOL 10 MG IV (02:44)
[2025-04-05] MEDS: MERREM 500 MG IV (05:04)
[2025-04-05] MEDS: STERILE WATER FOR INJECTION 10 ML IV (05:04)
[2025-04-05 07:40] VITALS: BP 135/56
[2025-04-05 08:27] LABS: Glucose - Point of Care 157 mg/dl (70-99)
[2025-04-05] MEDS: NOVOLOG FLEXPEN-LOW RESISTANCE 1 UNITS SC ×3 (08:33→17:15)
[2025-04-05 08:35] LABS: Hematocrit 35.3 % (37.0-47.0); Hemoglobin 11.6 g/dL (12.0-16.0); Mean Corp Hgb Conc. 32.9 g/dL (33.0-37.0); Mean Corpuscular Volume 85.3 fL (81.0-99.0); Platelet Count 264 10^3/uL (130-400); Red Cell Dist. Width 12.9 % (11.5-14.5)
[2025-04-05 09:58] LABS: Blood Urea Nitrogen 5 mg/dl (7-17); Calcium 8.7 mg/dl (8.4-10.2); Carbon Dioxide 28 mmol/L (22-30); Chloride 105 mmol/L (98-107); Estimated Creatinine Clearance 121 ml/min; Glucose 132 mg/dl (70-99); Potassium 4.1 mmol/L (3.5-5.1); Sodium 139 mmol/L (135-145); eGFR > 60.00
[2025-04-05 10:31] LABS: C-Reactive Protein 29.60 mg/L (0.0-10.00)
--- NOTE | 2025-04-05 10:36 | W.PN.ID1 ---
Date of Service
Date of Service: April 05, 2025
Today's Communication
See below.
Assessment / Plan
# Recurrent sigmoid diverticulitis with progression, micro-perforation, developing abscess (outside CT)
. Recently completed >2 week course of Ertapenem 2 weeks ago.
# Allergy to PCN, FQ
# DM
Plan:
- Awaiting Colorectal surgeon's plan.
- If no plans for IR drainage or surgical intervention at this time, recommend meropenem 1g IV q12h x 2 weeks through 04/19/25, followed by cefdinir 300mg po bid and metronidazole 500mg po bid till surgical intervention end of April.
-Infusion sheet submitted to case operator.
- Follow weekly CBC, CMP
- Ordered midline.
Chief Complaint
-: Other (Diverticular abscess)
Subjective / Review of Systems
Feels well.
Vital Signs / Physical Exam
Vital Signs
Vital Signs
Temp Pulse Resp BP Pulse Ox
98.4 F 65 16 135/56 95
04/05/25 07:40 04/05/25 07:40 04/05/25 07:40 04/05/25 07:40 04/05/25 08:00
Physical Exam
Constitutional: No Acute Distress and Comfortable
Cardiovascular: Regular Rate and S1/S2
Pulmonary: Clear
Gastrointestinal: Soft, Non Tender, Non Distended and Normal Bowel Sounds
Genito-Urinary: Negative CVA Tenderness
Extremities: Negative Edema
Neurological: AO x 3
Objective Data
Lab Data
Lab Results
04/05/25 07:07
04/05/25 07:07
Estimated Creat Clear 121 ml/min 04/05/25 07:07
Lactic Acid 2.0 mmol/L (0.7-2.0) 04/02/25 20:14
Total Bilirubin 0.5 mg/dl (0.2-1.3) 04/02/25 20:14
AST 22 U/L (14-36) 04/02/25 20:14
ALT 16 U/L (0-35) 04/02/25 20:14
Alkaline Phosphatase 77 U/L (38-126) 04/02/25 20:14
C-Reactive Protein 29.60 mg/L (0.0-10.00) H 04/05/25 07:07
Most recent labs reviewed.
Micro Results:
04/05/25 10:19 C. difficile GDH Antigen & Toxins - Pending
Feces/Stool
04/02/25 20:14 Blood Culture - Preliminary
Blood/Venous No Growth in 48 hours- Final report to follow
03/01/25 CT a/p: There is sigmoid diverticulitis unchanged with moderate surrounding inflammation. Along the wall of the sigmoid there is a intramural abscess versus focally inflamed diverticulum, unchanged. There is air in the vaginal canal
consistent with a possible colovaginal fistula. There is air in the bladder with lack of fat plane between the inflammation in the bladder. Colovesical fistula cannot be excluded.
Care Review
Plan reviewed with: Physician (Dr. Doretha Reddy)
--- NOTE | 2025-04-05 10:38 | W.PN.CRS1 ---
Today's Communication / Plan
-
low residue diet
no plans for surgery this admission
abx per ID
Assessment/Plan
-
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 imaging obtained as an
outpatient which demonstrated progression of diverticulitis with microperforation and developing recurrent intramural abscess/phlegmon (report but not image available). Given location (intramural), would not recommend IR drainage.
Afebrile, VSS
WBC: 6.5, Hgb 11.6 (11.5)
Plan:
-Advance to low residue
-ABX as per ID, on Merem. May require home IV abx.
-Analgesics prn
-Diabetic/medical management as per primary team
-Will keep on the schedule for 05/[address] Gallego
-If tolerating low residue diet, okay for d/c from our standpoint. ABX per ID.
Subjective Data
Subjective Data
Date of Service: April 05, 2025
Patient states she has no nausea or vomiting. She has no pain. She is having bowel movements (about 8 a day).
Objective Data
-
Vital Signs
Temp Pulse Resp BP Pulse Ox
98.4 F 65 16 135/56 95
04/05/25 07:40 04/05/25 07:40 04/05/25 07:40 04/05/25 07:40 04/05/25 08:00
Intake & Output
04/04/25 04/05/25 04/06/25
06:59 06:59 06:59
Intake Total 2420 / 2420 1859
Output Total 0 / 0
Balance 2420 / 2420 1859
Intake:
Oral fluids 960 / 960 1859 / 1859
IV fluids (Total) 1459 / 146
Output:
Urine, Voided 0 / 0
Other:
Number of approximated MODERATE 1 5
amounts of urine
Number of approximated LARGE 3
amounts of urine
Number of unmeasured liquid
stools
Rectum 7
Lab Results
04/05/25 07:07
04/05/25 07:07
Physical Exam
-
General: No Acute Distress and AOx3
Abdomen: Soft, Non Distended and Non Tender
Skin: Warm and Dry
[2025-04-05] MEDS: MERREM 1000 MG IV ×2 (12:04→23:58)
[2025-04-05] MEDS: STERILE WATER FOR INJECTION 20 ML IV ×2 (12:04→23:58)
--- NOTE | 2025-04-05 12:26 | CM ---
Addendum entered by Henrietta Hdz 04/05/25 15:36:
CM spoke with Nurse Yi ([phone]) from [facility]- faxed line information, script, and facesheet to [phone]. Yi will run benefits, aware patient stable for d.c pending availability. Yi reports Nurse Maria Esther will follow up
tomorrow, provided CM number.
Original Note:
CM reviewed chart, patient seen bedside.
Patient will require home infusion until 04/19- requesting [facility]- referral placed in [facility].
Call to [facility]- spoke to wine sales representative, no nurses available at this time, will need to take CM name/number to call back.
Script placed on chart (Meropenem 1g IV q12 until 04/19/25).
Patient reports she has had home infusion in the past.
Confirmed with Hospitalist- patient stable for d.c pending set up/approval home infusion
CM will continue to follow for all d/c planning needs.
Plan: referral to [facility]
[2025-04-05 12:34] LABS: Glucose - Point of Care 184 mg/dl (70-99)
--- NOTE | 2025-04-05 13:47 | W.PN.HOSP.TC ---
Today's Communication/Plan
-
Pending home IV antibiotic infusion set up
Discharge plan
Assessment / Plan
Assessment / Plan
Assessment:
Acute/Chronic Sigmoid Diverticulitis
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
- outpatient CT report: small rim-enhancing collection with some gas measuring 1.6x3.2x3.3 c/w phlegmon/abscess vs intramural abscess
- recent episode of Acute/Chronic Sigmoid Diverticulitis completed 2 weeks IV Ertapenem
- pain control, anti-emetics
- CRS cleared patient, no surgical indication/brain abscess this admission. Patient is planned to follow-up in office with elective surgery planned next month
- ID cleared for IV Merrem 1 g every 12 hour for 2 weeks followed by cefdinir/metronidazole through end of the april
- Case management working on home infusion arrangement
DM-II
- hold PO medications
- Follow glucose and cover with SSI as needed.
- A1c 7.4% recently
Asthma without Acute Exacerbation
- Stable. Continue home inhaler regimen.
- Albuterol PRN.
Obesity due to excess calories
- Affects all aspects of care.
- Encourage healthy diet and increased activity with goal of weight loss.
DVT Prophylaxis: Lovenox
Code Status: Full
Anticipated Discharge: Within 24 hours
Subjective/Interval History
-
Date of Service: April 05, 2025
Denies abdominal pain/nausea/vomiting
Afebrile in night
Objective Data
-
Labs:
Laboratory Results
04/05/25
07:07
WBC 6.5
Hgb 11.6 L
Hct 35.3 L
Plt Count 264
Sodium 139
Potassium 4.1
Chloride 105
Carbon Dioxide 28
BUN 5 L
Creatinine 0.4 L
Glucose 132 H
Calcium 8.7
Vital Signs:
Vital Signs
Temp Pulse Resp BP Pulse Ox
98.4 F 65 16 135/56 95
04/05/25 07:40 04/05/25 07:40 04/05/25 07:40 04/05/25 07:40 04/05/25 08:00
I&O
04/04/25 04/05/25 04/06/25
06:59 06:59 06:59
Intake Total 2420 / 2420 1859 / 1859
Output Total 0 / 0 150 / 150
Balance 2420 / 2420 1860 / 1860 -150 / -150
Review of Systems
-
Respiratory: Reports No Symptoms
Cardiac: Reports No Symptoms
Abdomen/GI: Reports No Symptoms
Physical Exam
-
General: Negative Appears in Distress
Neuro: Awake, Alert, Oriented and No Motor Deficits
[2025-04-05] MEDS: MORPHINE SULFATE 2 MG IV ×2 (15:47→22:46)
[2025-04-05 15:57] VITALS: BP 151/69
[2025-04-05 17:14] LABS: Glucose - Point of Care 162 mg/dl (70-99)
[2025-04-05] MEDS: LOVENOX 40 MG SC (17:16)
[2025-04-05] MEDS: FIRVANQ PO ×2 (17:22→23:57)
--- NOTE | 2025-04-05 17:41 | PTCARENOTE ---
Pt refused taking the oral Vanco. After education was given that the toxin was negative, but the antigen was positive. Pt refused the medication and I told the pt that the ID MD will be in to answer questions that she might have.
[2025-04-05 21:14] LABS: Glucose - Point of Care 213 mg/dl (70-99)
[2025-04-05] MEDS: XANAX 0.25 MG PO (22:45)
[2025-04-05 23:29] VITALS: BP 137/66
--- NOTE | 2025-04-05 23:53 | VATNOTE ---
04/05 025
Patient complaining of pain at ML site described as a sharp pain in her muscle. She denies pain above the site and below the site. No swelling noted and dressing is C/D/I. Ice applied for comfort. Patient aware need for ML for iv antibiotics but
stating that if it is not feeling better by morning she is going to want it moved to the other arm. Patient asked to make sure she lets her nurse know if the pain changes or she notices any blood on the dressing or swelling of her arm. VAT to
follow-up in the am.
[2025-04-06] MEDS: FIRVANQ PO (06:21)
[2025-04-06 06:49] LABS: Hematocrit 35.7 % (37.0-47.0); Hemoglobin 11.7 g/dL (12.0-16.0); Mean Corp Hgb Conc. 32.8 g/dL (33.0-37.0); Mean Corpuscular Volume 84.8 fL (81.0-99.0); Platelet Count 269 10^3/uL (130-400); Red Cell Dist. Width 12.9 % (11.5-14.5)
[2025-04-06 07:33] LABS: C-Reactive Protein 23.10 mg/L (0.0-10.00)
[2025-04-06 07:35] LABS: Blood Urea Nitrogen 7 mg/dl (7-17); Calcium 8.8 mg/dl (8.4-10.2); Carbon Dioxide 29 mmol/L (22-30); Chloride 106 mmol/L (98-107); Estimated Creatinine Clearance 121 ml/min; Glucose 141 mg/dl (70-99); Potassium 4.1 mmol/L (3.5-5.1); Sodium 139 mmol/L (135-145); eGFR > 60.00
[2025-04-06 07:40] VITALS: BP 136/64
[2025-04-06 08:03] LABS: Glucose - Point of Care 139 mg/dl (70-99)
[2025-04-06] MEDS: NOVOLOG FLEXPEN-LOW RESISTANCE SC (08:10)
--- NOTE | 2025-04-06 09:14 | W.PN.CRS1 ---
Today's Communication / Plan
-
d/c from our perspective
outpatient antibiotics per ID
OR on 05/[address] Gallego
Assessment/Plan
-
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 imaging obtained as an
outpatient which demonstrated progression of diverticulitis with microperforation and developing recurrent intramural abscess/phlegmon (report but not image available). Given location (intramural), would not recommend IR drainage.
Afebrile, VSS
WBC: 7.4, Hgb 11,7
Plan:
-Continue low residue
-ABX as per ID, on Merem. May require home IV abx.
-Analgesics prn
-Diabetic/medical management as per primary team
-Will keep on the schedule for 05/[address] Gallego
-Okay for d/c from our standpoint. ABX per ID.
Subjective Data
Subjective Data
Date of Service: April 06, 2025
Patietn states she feels well. She is having bowel movements. Denies abdominal pain. Denies nausea or vomiting. Her pain is a 3/10.
Objective Data
-
Vital Signs
Temp Pulse Resp BP Pulse Ox
97.8 F 68 16 136/64 98
04/06/25 07:40 04/06/25 07:40 04/06/25 07:40 04/06/25 07:40 04/06/25 07:40
Intake & Output
04/05/25 04/06/25 04/07/25
06:59 06:59 06:59
Intake Total 1859 / 0 1640 / 1640
Output Total 0 / 0 150 / 150
Balance 1859 / 0 1490 / 1490
Intake:
Oral fluids 186 / 0 1620 / 1620
IV piggybacks
Output:
Liquid stool amount 150 / 150
Rectum 150 / 150
Urine, Voided 0 / 0
Other:
Number of approximated MODERATE 5
amounts of urine
Number of approximated LARGE 4
amounts of urine
Number of unmeasured liquid
stools
Rectum 7
Lab Results
04/06/25 06:19
04/06/25 06:19
Physical Exam
-
General: No Acute Distress and AOx3
Abdomen: Soft, Non Distended and Non Tender
--- NOTE | 2025-04-06 09:17 | PTCARENOTE ---
pt stated that she would like to take the Vanco. Will give her 12pm dose at then.
--- NOTE | 2025-04-06 11:34 | W.PN.ID1 ---
Date of Service
Date of Service: April 06, 2025
Today's Communication
See below.
Assessment / Plan
# Recurrent sigmoid diverticulitis with progression, micro-perforation, developing abscess (outside CT)
. Recently completed >2 week course of Ertapenem 2 weeks ago.
# Allergy to PCN, FQ
# DM
# Diarrhea
Plan:
-Colorectal - no plans for IR drainage or surgical intervention at this time.
- Continue meropenem 1g IV q12h x 2 weeks through 04/19/25, followed by cefdinir 300mg po bid and metronidazole 500mg po bid till surgical intervention end april.
-Infusion sheet submitted to case investigator 04/05.
- Follow weekly CBC, CMP
-Diarrhea
C. diff Ag+, toxin negative.
Treat with Vancomycin 125mg po qid through 04/15/25 then daily through end april.
Chief Complaint
-: Other (Diverticular abscess)
Subjective / Review of Systems
Diarrhea not as watery today.
No abd pain.
Vital Signs / Physical Exam
Vital Signs
Vital Signs
Temp Pulse Resp BP Pulse Ox
97.8 F 68 16 136/64 98
04/06/25 07:40 04/06/25 07:40 04/06/25 07:40 04/06/25 07:40 04/06/25 07:40
Physical Exam
Constitutional: No Acute Distress and Comfortable
Cardiovascular: Regular Rate and S1/S2
Pulmonary: Clear
Gastrointestinal: Soft, Non Tender, Non Distended and Normal Bowel Sounds
Genito-Urinary: Negative CVA Tenderness
Extremities: Negative Edema
Neurological: AO x 3
Lines: Other (RUE midline in place)
Objective Data
Lab Data
Lab Results
04/06/25 06:19
04/06/25 06:19
Estimated Creat Clear 121 ml/min 04/06/25 06:19
Lactic Acid 2.0 mmol/L (0.7-2.0) 04/02/25 20:14
Total Bilirubin 0.5 mg/dl (0.2-1.3) 04/02/25 20:14
AST 22 U/L (14-36) 04/02/25 20:14
ALT 16 U/L (0-35) 04/02/25 20:14
Alkaline Phosphatase 77 U/L (38-126) 04/02/25 20:14
C-Reactive Protein 23.10 mg/L (0.0-10.00) H 04/06/25 06:19
Most recent labs reviewed.
Micro Results:
04/02/25 20:14 Blood Culture - Preliminary
Blood/Venous No Growth in 72 hours- Final report to follow
04/05/25 10:19 C. difficile GDH Antigen & Toxins - Final
Feces/Stool C. difficile antigen positive, toxin negative.
Clostridium difficile present, but toxin not detected.
Patient may be a carrier, colonized with nontoxinogenic
strain or the level of toxin in sample is below detection
limits. This information should be used in conjunction with
the patient's clinical history.
03/01/25 CT a/p: There is sigmoid diverticulitis unchanged with moderate surrounding inflammation. Along the wall of the sigmoid there is a intramural abscess versus focally inflamed diverticulum, unchanged. There is air in the vaginal canal
consistent with a possible colovaginal fistula. There is air in the bladder with lack of fat plane between the inflammation in the bladder. Colovesical fistula cannot be excluded.
Care Review
Plan reviewed with: Physician (Dr. ed Reddy)
[2025-04-06] MEDS: FIRVANQ 125 MG PO ×2 (12:21→17:23)
[2025-04-06] MEDS: MERREM 1000 MG IV (12:21)
[2025-04-06] MEDS: STERILE WATER FOR INJECTION 20 ML IV (12:22)
[2025-04-06 12:23] LABS: Glucose - Point of Care 253 mg/dl (70-99)
[2025-04-06] MEDS: NOVOLOG FLEXPEN-LOW RESISTANCE 3 UNITS SC (12:24)
--- NOTE | 2025-04-06 13:23 | W.PN.HOSP.TC ---
Today's Communication/Plan
-
d/c planning for home
awaiting home infusion setup to be approved
Assessment / Plan
Assessment / Plan
Acute/Chronic Sigmoid Diverticulitis
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
- outpatient CT report: small rim-enhancing collection with some gas measuring 1.6x3.2x3.3 c/w phlegmon/abscess vs intramural abscess
- recent episode of Acute/Chronic Sigmoid Diverticulitis completed 2 weeks IV Ertapenem
- pain control, anti-emetics
- CRS cleared patient, no surgical indication/brain abscess this admission. Patient is planned to follow-up in office with elective surgery planned next month
- ID cleared for IV Merrem 1 g every 12 hour for 2 weeks followed by cefdinir/metronidazole through end of the april
- Case management working on home infusion arrangement
C-difficle colonization
- cdiff antigen positive and toxin neg
- having some diarrhea and in light of colon sx next month , ID recommended treating with 10 days of oral vanc QID followed by daily dosing till patient get sx
DM-II
- hold PO medications
- Follow glucose and cover with SSI as needed.
- A1c 7.4% recently
Asthma without Acute Exacerbation
- Stable. Continue home inhaler regimen.
- Albuterol PRN.
Obesity due to excess calories
- Affects all aspects of care.
- Encourage healthy diet and increased activity with goal of weight loss.
DVT Prophylaxis: Lovenox
Code Status: Full
Anticipated Discharge: Today
Subjective/Interval History
-
Date of Service: April 06, 2025
no complains overnight
Objective Data
-
Labs:
Laboratory Results
04/06/25
06:19
WBC 7.4
Hgb 11.7 L
Hct 35.7 L
Plt Count 269
Sodium 139
Potassium 4.1
Chloride 106
Carbon Dioxide 29
BUN 7
Creatinine 0.4 L
Glucose 141 H
Calcium 8.8
Vital Signs:
Vital Signs
Temp Pulse Resp BP Pulse Ox
97.8 F 68 16 136/64 98
04/06/25 07:40 04/06/25 07:40 04/06/25 07:40 04/06/25 07:40 04/06/25 07:40
I&O
04/05/25 04/06/25 04/07/25
06:59 06:59 06:59
Intake Total 1859 1640 / 1640
Output Total 0 / 0 150 / 150
Balance 1859 1490 / 1490
Review of Systems
-
Respiratory: Reports No Symptoms
Cardiac: Reports No Symptoms
Abdomen/GI: Reports No Symptoms
Physical Exam
-
General: Negative Appears in Distress
Neuro: Awake, Alert, Oriented and No Motor Deficits
--- NOTE | 2025-04-06 13:42 | CM ---
Addendum entered by Gerda Garcia 04/06/25 16:41:
faxed midline and script for antibiotics. plan is for discharge tomorrow.
Original Note:
CM spoke with Maria Esther at [facility] and she indicated that patient is accepted and scheduled for 6pm dose tomorrow. YINKA sent updated note to physician and will fax to Maria Esther [phone] script and PICC information. Maria Esther to call in
am to confirm arrangements and discharge. YINKA will continue to follow for discharge planning needs.
Plan; home with [facility].
[2025-04-06 15:10] VITALS: BP 146/77
[2025-04-06 16:50] LABS: Glucose - Point of Care 220 mg/dl (70-99)
[2025-04-06] MEDS: LOVENOX 40 MG SC (17:22)
[2025-04-06] MEDS: NOVOLOG FLEXPEN-LOW RESISTANCE 2 UNITS SC (17:22)
[2025-04-06 21:14] LABS: Glucose - Point of Care 261 mg/dl (70-99)
[2025-04-06] MEDS: XANAX 0.25 MG PO (22:05)
[2025-04-06 23:05] VITALS: BP 139/62
[2025-04-07] MEDS: FIRVANQ 125 MG PO ×2 (00:44→06:19)
[2025-04-07] MEDS: STERILE WATER FOR INJECTION 20 ML IV ×2 (00:45→11:01)
[2025-04-07] MEDS: MERREM 1000 MG IV ×2 (00:45→11:01)
[2025-04-07 07:42] LABS: C-Reactive Protein 20.40 mg/L (0.0-10.00)
[2025-04-07 08:00] VITALS: BP 133/72
[2025-04-07 08:30] LABS: Glucose - Point of Care 181 mg/dl (70-99)
[2025-04-07] MEDS: NOVOLOG FLEXPEN-LOW RESISTANCE 1 UNITS SC (08:39)
--- NOTE | 2025-04-07 09:21 | W.PN.ID1 ---
Date of Service
Date of Service: April 07, 2025
Today's Communication
DC home. See below.
Assessment / Plan
# Recurrent sigmoid diverticulitis with progression, micro-perforation, developing abscess (outside CT)
. Recently completed >2 week course of Ertapenem 2 weeks ago.
# Allergy to PCN, FQ
# DM
# Diarrhea
Plan:
-Colorectal - no plans for IR drainage or surgical intervention at this time.
- Continue meropenem 1g IV q12h x 2 weeks through 04/19/25, followed by cefdinir 300mg po bid and metronidazole 500mg po bid through 05/05 . Surgery scheduled for 05/06.
-Infusion sheet submitted to case hardener 04/05.
- Follow weekly CBC, CMP
-Diarrhea
C. diff Ag+, toxin negative.
Treat with Vancomycin 125mg po qid through 04/15/25 then daily through May 05
- Follow up with me in 2 weeks.
Chief Complaint
-: Other (Diverticular abscess)
Subjective / Review of Systems
Diarrhea better.
Vital Signs / Physical Exam
Vital Signs
Vital Signs
Temp Pulse Resp BP Pulse Ox
98.1 F 77 16 133/72 99
04/07/25 08:00 04/07/25 08:00 04/07/25 08:00 04/07/25 08:00 04/07/25 08:00
Physical Exam
Constitutional: No Acute Distress and Comfortable
Cardiovascular: Regular Rate and S1/S2
Pulmonary: Clear
Gastrointestinal: Soft, Non Tender, Non Distended and Normal Bowel Sounds
Genito-Urinary: Negative CVA Tenderness
Extremities: Negative Edema
Neurological: AO x 3
Lines: Other (RUE midline in place)
Objective Data
Lab Data
Lab Results
04/06/25 06:19
04/06/25 06:19
Estimated Creat Clear 121 ml/min 04/06/25 06:19
Lactic Acid 2.0 mmol/L (0.7-2.0) 04/02/25 20:14
Total Bilirubin 0.5 mg/dl (0.2-1.3) 04/02/25 20:14
AST 22 U/L (14-36) 04/02/25 20:14
ALT 16 U/L (0-35) 04/02/25 20:14
Alkaline Phosphatase 77 U/L (38-126) 04/02/25 20:14
C-Reactive Protein 20.40 mg/L (0.0-10.00) H 04/07/25 06:34
Most recent labs reviewed.
Micro Results:
04/02/25 20:14 Blood Culture - Preliminary
Blood/Venous No Growth in 4 days- Final report to follow
04/05/25 10:19 C. difficile GDH Antigen & Toxins - Final
Feces/Stool C. difficile antigen positive, toxin negative.
Clostridium difficile present, but toxin not detected.
Patient may be a carrier, colonized with nontoxinogenic
strain or the level of toxin in sample is below detection
limits. This information should be used in conjunction with
the patient's clinical history.
03/01/25 CT a/p: There is sigmoid diverticulitis unchanged with moderate surrounding inflammation. Along the wall of the sigmoid there is a intramural abscess versus focally inflamed diverticulum, unchanged. There is air in the vaginal canal
consistent with a possible colovaginal fistula. There is air in the bladder with lack of fat plane between the inflammation in the bladder. Colovesical fistula cannot be excluded.
Care Review
Plan reviewed with: Physician (Telma Chappell)
--- NOTE | 2025-04-07 10:21 | CM ---
CM reviewed chart, reviewed with Hospitalist.
CM spoke with Maria Esther from [facility] [phone], confirmed patient will have visit for evening dose of medication, around 6:00 p.m.
Patient seen beside, aware of d.c plan, confirms daughter will provide transportation home.
CM will continue to follow for all discharge planning needs.
Plan; home with [facility]
[2025-04-07 12:00] VITALS: BP 151/77
--- NOTE | 2025-04-07 13:48 | W.DCSUMMARY ---
Discharge Summary
Discharge Data
Date of Admission: 04/03/25
Date of Discharge: 04/07/25
-
Pending Results: No
Hospital Course
Discharging Physician : Dr Prasad Reddy
Disposition : To home
Primary care physician : Dr Dary Kendall
Principal Discharge diagnosis :
Recurrent sigmoid diverticulitis with microperforation/abscess
Possible colovaginal/colovesical fistula
C. difficile antigen positive
Chronic Discharge diagnosis :
Type 2 diabetes mellitus
Asthma without exacerbation
Obesity
Generalized anxiety disorder
Physical examination:
HEENT: moist mucus membrane
Chest: Clear to auscultation
Heart: N s1/s2, RRR, no rub/mrumur/gallops
Abd: N BS, soft, nontender, nondistended, no organomegaly
Neuro: No motor deficits, AOx3
Ext: No cyanosis, Clubbing, edema
Hospital Course :
Patient is 59-year-old female with no major past medical history came to ER with outpatient CT scan showing worsening diverticulitis complicated by possibly microperforation and developing abscess. Patient was initially diagnosed with
diverticulitis in February and was thought to have a colovesicular/colovaginal fistula and was treated with IV antibiotic. Patient finished a course of antibiotic and had an outpatient CT scan after her second surgical evaluation which showed finding
of possible microperforation and small developing abscess. Patient was started on empiric antibiotics and ID and colorectal surgery was involved in care. Colorectal surgery recommended against any IR drainage or surgical intervention this
admission. Patient is planned to have an elective surgery in 4 weeks. Patient had developed new diarrhea and was felt to be antibiotic use related although stool was checked and was C. difficile antigen positive but toxin negative. ID recommended
for treatment of C. difficile colonization with plan for elective procedure later in the month. At discharge patient recommended to maintained on IV antibiotic for 2 more weeks followed by oral antibiotic therapy for maintenance. PICC line was
placed and home infusion set up was done.
Important imaging findings :
None
Procedure findings :
None
Discharge Plan
-
Patient Disposition: Home with Home Care
Discharge Diagnosis/Procedures: Acute recurrent sigmoid diverticulitis and abscess, Cdiff antigen positive,
Condition: Fair
Diet: Other diet
Additional Diets: Low residue diet
Activity: As tolerated
Driving Restrictions: No driving
Bathing Restrictions: OK to Shower
Other Services: VN
Referrals:
Dary Kendall MD [Family Provider, Family Practice] - in one week
Cristina See MD [Active, Infectious Diseases] - in one to two weeks
Prescriptions:
New
meropenem 1 gram Recon Soln
1,000 mg IV Q12H Qty: 25 0RF
Rx Instructions:
For documentation only
Last dose on 04/19/25 evening
cefdinir 300 mg capsule
300 mg PO BID Qty: 40 0RF
Rx Instructions:
Start from 04/20/25 Morning till getting colon surgery
metronidazole 500 mg tablet
500 mg PO BID Qty: 40 0RF
Rx Instructions:
Start from 04/20/25 Morning till getting colon surgery
vancomycin [Vancocin] 125 mg capsule
See Rx Instructions .ROUTE .COMPLEX Qty: 60 0RF
Rx Instructions:
Take 1 Capsule 4 times day for 10 days THEN
Take 1 capsule daily till colon surgery
Continued
glyburide-metformin 1.25 MG/250 MG tablet
1 tab PO TID
alprazolam [Xanax] 0.25 mg Tablet
0.25 mg PO HS
cholecalciferol (vitamin D3) [Vitamin D3] 25 mcg (1,000 unit) Tablet
25 mcg PO DAILY
magnesium oxide 400 mg magnesium Tablet
250 mg PO BID
fluticasone furoate-vilanterol [Breo Ellipta] 100-25 mcg/dose Blister With Device
1 inh INHALATION R DAILYPRN PRN (Reason: SOB)
acetaminophen [Tylenol] 325 mg Tablet
650 mg PO Q6HPRN PRN (Reason: MILD PAIN)
therapeutic multivitamin Tablet
1 tab PO DAILY
oxycodone-acetaminophen 5-325 mg Tablet
1 tab PO DAILYPRN PRN (Reason: SEVERE PAIN)
ondansetron 4 mg tablet,disintegrating
4 mg PO Q8H PRN (Reason: GI upset) Qty: 21 0RF
Discontinued
ertapenem 1 gram recon soln
1 g IV Q24H 14 Days
Discharge Orders:
Discharge Patient (As Directed); Ordered 04/07/25
Ordered By: Prasad Reddy
Discharge Date and Time
Discharge Date/Time: 04/07/25 12:33
Print Language: SINHALA
== END 2025-04-07 12:33 | disposition home or self-care (01) | DRG 392 ==
LOC: 4 WEST ACU 01:15
PROVIDERS: Emergency Medicine; Internal Medicine; Surgery; ADMITTING PHYSICIAN Internal Medicine; ATTENDING PHYSICIAN Hospitalist; CONSULT PHYSICIAN Internal Medicine Infectious Disease; EMERGENCY PHYSICIAN Emergency Medicine; FAMILY PHYSICIAN Internal Medicine; OTHER PHYSICIAN Surgery
DX: K57.20 Diverticulitis of large intestine with perforation and abscess without bleeding (principal); N32.1 Vesicointestinal fistula; A04.72 Enterocolitis due to Clostridium difficile, not specified as recurrent; E11.9 Type 2 diabetes mellitus without complications; J45.909 Unspecified asthma, uncomplicated; E66.09 Other obesity due to excess calories; Z68.33 Body mass index [BMI] 33.0-33.9, adult; F41.9 Anxiety disorder, unspecified; G47.33 Obstructive sleep apnea (adult) (pediatric); Z88.0 Allergy status to penicillin; Z87.891 Personal history of nicotine dependence; Z88.1 Allergy status to other antibiotic agents; Z90.710 Acquired absence of both cervix and uterus
CPT/HCPCS: 80048; 80053; 82962; 83605; 85025; 85027; 86140; 86803; 87040; 87324; 87449; 96374; 96375; 99284; J1335; J2185

== ENCOUNTER 2025-05-05 06:18 | Day surgery (SDC) | payer OTHER, SELFPAY ==
[2025-05-05 07:22] LABS: Glucose - Point of Care 147 mg/dl (70-99)
== END 2025-05-05 08:41 | disposition home or self-care (01) ==
LOC: GI 06:18
PROVIDERS: ATTENDING PHYSICIAN Surgery
DX: Z12.11 Encounter for screening for malignant neoplasm of colon (principal); Z86.0100 Personal history of colon polyps, unspecified; Z01.818 Encounter for other preprocedural examination; K56.699 Other intestinal obstruction unspecified as to partial versus complete obstruction; K57.32 Diverticulitis of large intestine without perforation or abscess without bleeding; K57.30 Diverticulosis of large intestine without perforation or abscess without bleeding
CPT/HCPCS: G0105; 82962

== ENCOUNTER 2025-05-06 05:47 | Inpatient (IN) | payer OTHER, SELFPAY ==
[2025-04-28 08:57] LABS: Hematocrit 38.5 % (37.0-47.0); Hemoglobin 12.6 g/dL (12.0-16.0); Mean Corp Hgb Conc. 32.7 g/dL (33.0-37.0); Mean Corpuscular Volume 85.4 fL (81.0-99.0); Platelet Count 325 10^3/uL (130-400); Red Cell Dist. Width 13.0 % (11.5-14.5)
[2025-04-28 09:11] LABS: INR 0.92; PT 12.9 Sec (11.4-14.6)
[2025-04-28 09:12] LABS: APTT 28.0 Sec (23.4-35.0)
[2025-04-28 09:57] LABS: ALT (SGPT) 16 U/L (0-35); AST (SGOT) 23 U/L (14-36); Albumin 4.4 g/dl (3.5-5.0); Alkaline Phosphatase 77 U/L (38-126); Blood Urea Nitrogen 7 mg/dl (7-17); Calcium 9.0 mg/dl (8.4-10.2); Carbon Dioxide 26 mmol/L (22-30); Chloride 103 mmol/L (98-107); Glucose 124 mg/dl (70-99); Potassium 4.0 mmol/L (3.5-5.1); Sodium 139 mmol/L (135-145); Total Protein 7.6 g/dl (6.3-8.2); eGFR > 60.00
[2025-04-28 10:46] LABS: Glycohemoglobin (HgbA1c) 7.1 % (4.0-5.9)
[2025-04-28 14:07] VITALS: BMI 32.3
[2025-05-06] VITALS (19 sets, daily range): BP systolic 20–142; BP diastolic 51–69; BMI 32.3
[2025-05-06] MEDS: EMEND 40 MG PO (06:36)
[2025-05-06 06:47] LABS: Glucose - Point of Care 128 mg/dl (70-99)
[2025-05-06] MEDS: HEPARIN 5000 UNITS SC (06:48)
[2025-05-06] MEDS: NEURONTIN 600 MG PO (06:48)
[2025-05-06] MEDS: CELEBREX 200 MG PO (06:48)
[2025-05-06] MEDS: RELISTOR 12 MG SC (06:48)
[2025-05-06] MEDS: TYLENOL 1000 MG PO (06:48)
[2025-05-06] MEDS: NORMOSOL-R/PLASMALYTE-A 1000 IV ×2 (06:58→18:38)
--- NOTE | 2025-05-06 15:27 | W.IMMPOSTOP ---
Surgical Immed Post Op Note
-
Primary Surgeon: Adeline Gallego MD
Assisting Surgeon: Chinmay Burroughs, PAC; Mel Russ, PAC; ARIA Haas
Pre-op Diagnosis: sigmoid diverticulitis with possible colovaginal and colovesical fistula
Post-op Diagnosis: sigmoid diverticulitis with pelvic abscess
Procedure Performed: 1) robotic sigmoidectomy 2) extensive lysis of adhesions 3) drainage pelvic abscess 4) repair serosal rent 5) flexible sigmoidectomy
Anesthesia Type: general plus local
Specimen / Cultures: sigmoid colon
Estimated Blood Loss: 250 cc
Complications: small serosal rent of ileum created when running small bowel--repaired.
Operative Findings: 1) abdominal adhesions with dense pelvic adhesions 2) pelvic abscess 3) no obvious fistulas 4) concern for L distal ureteral injury--evaluated by Dr. Gonzalez and was intact.
#19 Soy in pelvis.
Amado, stents, ureteral ICG by Dr. Hills. R stent removed at end of case.
Continuing Invanz for 4 days due to small pelvic abscess.
Will send to med surg.
Npo except sips and chips/meds.
[2025-05-06 16:40] LABS: Hematocrit 39.3 % (37.0-47.0); Hemoglobin 12.9 g/dL (12.0-16.0); Mean Corp Hgb Conc. 32.8 g/dL (33.0-37.0); Mean Corpuscular Volume 85.1 fL (81.0-99.0); Platelet Count 339 10^3/uL (130-400); Red Cell Dist. Width 13.1 % (11.5-14.5)
[2025-05-06 16:42] LABS: Blood Urea Nitrogen 15 mg/dl (7-17); Calcium 8.1 mg/dl (8.4-10.2); Carbon Dioxide 16 mmol/L (22-30); Chloride 102 mmol/L (98-107); Estimated Creatinine Clearance 93 ml/min; Glucose 239 mg/dl (70-99); Potassium 5.1 mmol/L (3.5-5.1); Sodium 136 mmol/L (135-145); eGFR > 60.00
[2025-05-06] MEDS: TORADOL 15 MG IV ×2 (16:49→21:12)
[2025-05-06 17:07] LABS: Nucleated Red Blood Cells % 0 %
[2025-05-06] MEDS: NOVOLOG vial 1 UNITS SC (17:22)
[2025-05-06] MEDS: DILAUDID 0.5 MG IV ×2 (17:28→20:13)
[2025-05-06 18:44] LABS: Glucose - Point of Care 282 mg/dl (70-99)
[2025-05-06] MEDS: NOVOLOG FLEXPEN-LOW RESISTANCE 3 UNITS SC ×2 (19:09→23:48)
--- NOTE | 2025-05-06 19:19 | PTCARENOTE ---
Pt [facility] to [facility] s/p robotic sigmoidectomy. Pt c/o eyes burning. Wash cloth applied to eyes. Teds/scds on pt. 16 turkmen pollock with stent. Right NEHEMIAS drain with sanguineous drainage. IVF infusing. 5 lap sites CAR ESCORT with glue. 99% on 2L. Bed locked
and in lowest position. Care ongoing.
[2025-05-06] MEDS: TYLENOL 650 MG PO ×2 (20:12→23:47)
[2025-05-06] MEDS: REFRESH EYE DROPS (PF) 1 DROPS OPHTH (20:12)
[2025-05-06 20:13] LABS: Glucose - Point of Care 280 mg/dl (70-99)
[2025-05-06] MEDS: XANAX 0.25 MG PO (21:12)
[2025-05-06 23:43] LABS: Glucose - Point of Care 274 mg/dl (70-99)
[2025-05-07] VITALS (8 sets, daily range): BP systolic 95–125; BP diastolic 43–89; PULSE 82; O2SAT 95; BMI 32.5
[2025-05-07] MEDS: DILAUDID 0.5 MG IV ×4 (00:39→16:43)
[2025-05-07] MEDS: TORADOL 15 MG IV ×4 (04:06→21:03)
[2025-05-07] MEDS: TYLENOL PO ×2 (04:10→13:23)
[2025-05-07 05:48] LABS: Glucose - Point of Care 230 mg/dl (70-99)
[2025-05-07] MEDS: NORMOSOL-R/PLASMALYTE-A 1000 IV ×2 (05:48→19:42)
[2025-05-07] MEDS: NOVOLOG FLEXPEN-LOW RESISTANCE 2 UNITS SC ×2 (05:52→12:12)
[2025-05-07 06:44] LABS: Hematocrit 35.6 % (37.0-47.0); Hemoglobin 11.2 g/dL (12.0-16.0); Mean Corp Hgb Conc. 31.5 g/dL (33.0-37.0); Mean Corpuscular Volume 88.3 fL (81.0-99.0); Nucleated Red Blood Cells % 0 %; Platelet Count 334 10^3/uL (130-400); Red Cell Dist. Width 13.2 % (11.5-14.5)
[2025-05-07 07:31] LABS: Blood Urea Nitrogen 22 mg/dl (7-17); Calcium 8.2 mg/dl (8.4-10.2); Carbon Dioxide 23 mmol/L (22-30); Chloride 101 mmol/L (98-107); Estimated Creatinine Clearance 74 ml/min; Glucose 236 mg/dl (70-99); Potassium 4.8 mmol/L (3.5-5.1); Sodium 132 mmol/L (135-145); eGFR > 60.00
[2025-05-07] MEDS: INVANZ 60 MG IV (08:20)
[2025-05-07] MEDS: TYLENOL 650 MG PO ×3 (09:20→19:42)
--- NOTE | 2025-05-07 10:07 | CM ---
Cm met with patient in room. Patient confirmed demographics. Patient lives independently with her parents, and sister in law. Patient has had a history of SNF at [facility] in [place]. Patient has had a history of [facility].
CM discussed SNF. CM sent referrals to [facility]. Patient expressed preference for facilities close to [facility].
PLAN: SNF, pending acceptance.
[2025-05-07 11:55] LABS: Glucose - Point of Care 241 mg/dl (70-99)
--- NOTE | 2025-05-07 15:10 | W.PN.CRS1 ---
Today's Communication / Plan
-
OOB.
Clears.
Lovenox.
Assessment/Plan
-
POD 1.
1. trial clears.
2. left stent removed. Anticipate pollock out tomorrow. UO recording is low but on bedside exam, good amount of urine in countainer.
3. OOB.
4. continue Invanz for 4 days due to intraop pelvic abscess.
5. start Lovenox.
Subjective Data
Procedure
1) robotic sigmoidectomy 2) extensive lysis of adhesions 3) drainage pelvic abscess 4) repair serosal rent 5) flexible sigmoidectomy on 05/06/25
Subjective Data
Date of Service: May 07, 2025
No nausea.
Mild abdominal discomfort.
Objective Data
-
Vital Signs
Temp Pulse Resp BP Pulse Ox
98.0 F 76 16 108/49 99
05/07/25 11:00 05/07/25 11:00 05/07/25 11:00 05/07/25 11:00 05/07/25 11:00
Intake & Output
05/06/25 05/07/25 05/08/25
06:59 06:59 06:59
Intake Total 300 / 300
Output Total 327 / 327
Balance -27 / -27
Intake:
IV fluids (Total) 300 / 300
Normosal 300 / 300
Output:
Drain Output (Total) 200 / 200
Right Abdomen Duncan-Dickens A 200 / 200
Urinary Drain Output (Total) 2 / 2
Left Ureteral stent 1
Right Ureteral stent
Urine, Pollock 125 / 125
Lab Results
05/07/25 06:15
05/07/25 06:15
Physical Exam
-
General: No Acute Distress
Chest: Clear
Cardiovascular: Regular Rate & Rhythm
Abdomen: Distended (mild), Tender (mild incisional) and Other (NEHEMIAS with SS output)
Extremities: No Calf Tenderness
Incision: Clear, Dry, Intact and No Skin Erythema
[2025-05-07 16:26] LABS: Glucose - Point of Care 183 mg/dl (70-99)
[2025-05-07] MEDS: LOVENOX 40 MG SC (16:51)
[2025-05-07] MEDS: NOVOLOG FLEXPEN-LOW RESISTANCE 1 UNITS SC (16:59)
[2025-05-07] MEDS: XANAX 0.25 MG PO (21:03)
[2025-05-07 21:42] LABS: Glucose - Point of Care 232 mg/dl (70-99)
[2025-05-08] MEDS: TYLENOL 650 MG PO ×5 (00:17→16:17)
[2025-05-08] MEDS: DILAUDID 0.5 MG IV ×5 (00:41→20:43)
[2025-05-08] MEDS: TORADOL 15 MG IV ×4 (03:32→21:42)
[2025-05-08 04:55] VITALS: BP 104/47
[2025-05-08 06:00] VITALS: BMI 31.3
[2025-05-08 06:56] LABS: Blood Urea Nitrogen 22 mg/dl (7-17); Calcium 8.0 mg/dl (8.4-10.2); Carbon Dioxide 27 mmol/L (22-30); Chloride 103 mmol/L (98-107); Estimated Creatinine Clearance 91 ml/min; Glucose 156 mg/dl (70-99); Potassium 4.5 mmol/L (3.5-5.1); Sodium 136 mmol/L (135-145); eGFR > 60.00
[2025-05-08 07:02] LABS: Hematocrit 30.3 % (37.0-47.0); Hemoglobin 9.6 g/dL (12.0-16.0); Mean Corp Hgb Conc. 31.7 g/dL (33.0-37.0); Mean Corpuscular Volume 89.6 fL (81.0-99.0); Nucleated Red Blood Cells % 0 %; Platelet Count 250 10^3/uL (130-400); Red Cell Dist. Width 13.1 % (11.5-14.5)
[2025-05-08] MEDS: INVANZ 60 MG IV (07:26)
[2025-05-08 08:43] LABS: Glucose - Point of Care 147 mg/dl (70-99)
[2025-05-08 08:46] VITALS: BP 95/48
[2025-05-08] MEDS: NOVOLOG FLEXPEN-LOW RESISTANCE SC ×2 (08:51→16:12)
[2025-05-08 12:05] VITALS: BP 108/46
[2025-05-08] MEDS: NOVOLOG FLEXPEN-LOW RESISTANCE 1 UNITS SC (12:06)
[2025-05-08 12:10] LABS: Glucose - Point of Care 168 mg/dl (70-99)
--- NOTE | 2025-05-08 12:30 | W.PN.CRS1 ---
Addendum entered and electronically signed by Ghanshyam Borjas MD 05/08/25 13:37:
Patient seen examined. Agree with assessment plan as documented below.
Original Note:
Today's Communication / Plan
-
clear liquids
pain management
Assessment/Plan
-
59 yo female with h/o sigmoid diverticulitis with pelvic abscess now POD #1 RAL sigmoidectomy, megan, drainage of abscess, repair of serosal rent and flex sig
AFVSS
Acute anemia present suspect secondary to hemodilution with component of expected blood losses during surgery
Amado out for voiding trial
Passing flatus/stools, doesn't feel ready yet for dietary advancements
Plan:
Continue clear liquids
c/w NEHEMIAS, anticipate removal prior to dc
repeat h/h later today and in am
c/w Invanz
Analgesics with scheduled tylenol/toradol and prn oxycodone/dilaudid
Follow blood glucose on SSI while oral diabetic agents on hold
Lovenox sq for VTE ppx, will hold if h/h continues to decrease on repeat
Subjective Data
Procedure
1) robotic sigmoidectomy 2) extensive lysis of adhesions 3) drainage pelvic abscess 4) repair serosal rent 5) flexible sigmoidectomy on 05/06/25
Subjective Data
Date of Service: May 08, 2025
Pt seen and examined at bedside with Dr. Borjas. Wearing eye mask, during entirety of exam. Denies n/v. Does not yet feel ready for clears. Passing clears and flatus.
Objective Data
-
Vital Signs
Temp Pulse Resp BP Pulse Ox
97.3 F 68 13 108/46 96
05/08/25 12:05 05/08/25 12:05 05/08/25 12:05 05/08/25 12:05 05/08/25 12:05
Intake & Output
05/07/25 05/08/25 05/09/25
06:59 06:59 05:59
Intake Total 300 / 300 2980 / 2980
Output Total 327 / 327 1630 / 1630 50 / 50
Balance -27 / -27 1350 / 1350 -50 / -50
Intake:
Oral fluids 580 / 580
IV fluids (Total) 300 / 300 1650 / 1650
Normosal 300 / 300
Amado intermittent irrigation 750 / 750
Output:
Drain Output (Total) 200 / 200 105 / 105
Right Abdomen Duncan-Dickens A 200 / 200 105 / 105
Urinary Drain Output (Total) 2 / 2
Left Ureteral stent
Right Ureteral stent
Urine, Amado 125 / 125 1525 / 1525
Urine, Voided 50 / 50
Other:
Number of unmeasured liquid
stools
Rectum 1
Lab Results
05/08/25 06:07
Physical Exam
-
General: No Acute Distress
Chest: Clear
Cardiovascular: Regular Rate & Rhythm
Abdomen: Soft, Distended (minimal), Tender (mild incisional) and Other (NEHEMIAS with SS output)
Incision: Clear, Dry, Intact and No Skin Erythema
--- NOTE | 2025-05-08 14:07 | CM ---
F/U: YINKA Li adding information to the chart as well as a Case Management DP Note.
Patient lives with her parents who are in their 90's in a 2 Story House with 1 step to enter, uses a cane, No VN services, and has been to [facility] in the past.
PCP: Dr. Alexandrea Kendall
Pharmacy: [facility] on [facility]
YINKA Li found out that CM referral was placed to SNF, saw that 2 declined, so asked the patient if we can make more referrals, she agreed to wherever, as long as the facility sends her back to this hospital if need be. PLAN: Anticipate SNF when
ready.
[2025-05-08 14:10] LABS: Hematocrit 33.3 % (37.0-47.0); Hemoglobin 10.8 g/dL (12.0-16.0)
[2025-05-08 15:55] VITALS: BP 117/54
[2025-05-08 16:01] LABS: Glucose - Point of Care 122 mg/dl (70-99)
[2025-05-08] MEDS: LOVENOX 40 MG SC (19:38)
[2025-05-08] MEDS: TYLENOL PO (19:43)
[2025-05-08] MEDS: XANAX 0.25 MG PO (21:42)
[2025-05-08 21:43] LABS: Glucose - Point of Care 112 mg/dl (70-99)
[2025-05-08 23:30] VITALS: BP 124/43
[2025-05-09 00:01] VITALS: BP 122/50
[2025-05-09] MEDS: TYLENOL PO (00:36)
[2025-05-09] MEDS: ROXICODONE 5 MG PO ×4 (02:45→17:25)
[2025-05-09] MEDS: TYLENOL 650 MG PO ×5 (03:47→20:57)
[2025-05-09] MEDS: TORADOL 15 MG IV ×4 (03:47→20:48)
[2025-05-09 06:00] VITALS: BMI 31.7
[2025-05-09] MEDS: INVANZ 60 MG IV (06:25)
[2025-05-09 06:27] LABS: Hematocrit 30.0 % (37.0-47.0); Hemoglobin 9.5 g/dL (12.0-16.0); Mean Corp Hgb Conc. 31.7 g/dL (33.0-37.0); Mean Corpuscular Volume 86.7 fL (81.0-99.0); Platelet Count 247 10^3/uL (130-400); Red Cell Dist. Width 13.2 % (11.5-14.5)
[2025-05-09 06:49] LABS: Blood Urea Nitrogen 16 mg/dl (7-17); Calcium 8.1 mg/dl (8.4-10.2); Carbon Dioxide 26 mmol/L (22-30); Chloride 105 mmol/L (98-107); Estimated Creatinine Clearance 92 ml/min; Glucose 109 mg/dl (70-99); Potassium 4.0 mmol/L (3.5-5.1); Sodium 134 mmol/L (135-145); eGFR > 60.00
[2025-05-09 07:45] VITALS: BP 130/54
[2025-05-09 08:03] LABS: Glucose - Point of Care 105 mg/dl (70-99)
[2025-05-09] MEDS: NOVOLOG FLEXPEN-LOW RESISTANCE SC (08:09)
--- NOTE | 2025-05-09 09:45 | W.PN.CRS1 ---
Addendum entered and electronically signed by Ghanshyam Borjas MD 05/09/25 10:41:
Patient seen and examined. Agree with assessment plan as documented below.
Original Note:
Today's Communication / Plan
-
FLD
Assessment/Plan
-
59 yo female with h/o sigmoid diverticulitis with pelvic abscess now POD #2 RAL sigmoidectomy, megan, drainage of abscess, repair of serosal rent and flex sig
AFVSS
H/H stable
Leukocytosis present but trending down
Voiding
Mild hyponatremia with fluid shifts
Passing flatus/stools, doesn't feel ready for solids
Plan:
Advance to FLD
c/w NEHEMIAS, anticipate removal prior to dc
c/w Invanz
trend labs
encouraged activity/mobility
Analgesics with scheduled tylenol/toradol and prn oxycodone/dilaudid
Follow blood glucose on SSI while oral diabetic agents on hold
Lovenox sq for VTE ppx with SCDs while in bed
Subjective Data
Procedure
1) robotic sigmoidectomy 2) extensive lysis of adhesions 3) drainage pelvic abscess 4) repair serosal rent 5) flexible sigmoidectomy on 05/06/25
Subjective Data
Date of Service: May 09, 2025
Pt seen and examined at bedside with Dr. Borjas. Denies n/v. Tolerating clears. Passing flatus and Bms. OOB to chair today. Appears more comfortable than yesterday am but does still note pain is about the same as yesterday.
Objective Data
-
Vital Signs
Temp Pulse Resp BP Pulse Ox
98.1 F 84 18 130/54 95
05/09/25 07:45 05/09/25 07:45 05/09/25 07:45 05/09/25 07:45 05/09/25 07:45
Intake & Output
05/08/25 05/09/25 05/10/25
06:59 05:59 06:59
Intake Total 2980 / 2980 960 / 960
Output Total 1630 / 1630 505 / 505
Balance 1350 / 1350 455 / 455
Intake:
Oral fluids 580 / 580 960 / 960
IV fluids (Total) 1650 / 1650
Amado intermittent irrigation 750 / 750
Output:
Drain Output (Total) 105 / 105 105 / 105
Right Abdomen Duncan-Dickens A 105 / 105 / 105
Urine, Amado 1525 / 1525
Urine, Voided 400 / 400
Other:
How many times incontinent 1
MODERATE amount urine
Number of approximated LARGE 1
amounts of urine
Number of unmeasured liquid
stools
Rectum 1
Lab Results
05/09/25 06:10
05/09/25 06:10
Physical Exam
-
General: No Acute Distress
Chest: Clear
Cardiovascular: Regular Rate & Rhythm
Abdomen: Soft, Distended (minimal), Tender (mild incisional) and Other (NEHEMIAS with SS output)
Incision: Clear, Dry, Intact and No Skin Erythema
[2025-05-09 12:56] LABS: Glucose - Point of Care 176 mg/dl (70-99)
[2025-05-09] MEDS: NOVOLOG FLEXPEN-LOW RESISTANCE 1 UNITS SC ×2 (13:10→17:28)
[2025-05-09 15:20] VITALS: BP 140/69
[2025-05-09] MEDS: LOVENOX 40 MG SC (17:26)
[2025-05-09 17:28] LABS: Glucose - Point of Care 169 mg/dl (70-99)
[2025-05-09] MEDS: XANAX 0.25 MG PO (20:52)
[2025-05-09 21:57] LABS: Glucose - Point of Care 234 mg/dl (70-99)
[2025-05-09 23:18] VITALS: BP 115/53
[2025-05-10] MEDS: TYLENOL 650 MG PO ×5 (00:50→17:50)
[2025-05-10] MEDS: DILAUDID 0.5 MG IV (00:50)
[2025-05-10] MEDS: TORADOL 15 MG IV ×4 (03:47→21:40)
[2025-05-10 06:00] VITALS: BMI 31.7
[2025-05-10] MEDS: INVANZ 60 MG IV (06:25)
[2025-05-10 06:56] LABS: Hematocrit 30.1 % (37.0-47.0); Hemoglobin 9.7 g/dL (12.0-16.0); Mean Corp Hgb Conc. 32.2 g/dL (33.0-37.0); Mean Corpuscular Volume 86.0 fL (81.0-99.0); Platelet Count 263 10^3/uL (130-400); Red Cell Dist. Width 13.2 % (11.5-14.5)
[2025-05-10 07:17] LABS: Blood Urea Nitrogen 9 mg/dl (7-17); Calcium 8.2 mg/dl (8.4-10.2); Carbon Dioxide 28 mmol/L (22-30); Chloride 103 mmol/L (98-107); Estimated Creatinine Clearance 122 ml/min; Glucose 167 mg/dl (70-99); Sodium 137 mmol/L (135-145); eGFR > 60.00
[2025-05-10 07:23] LABS: Potassium 4.1 mmol/L (3.5-5.1)
[2025-05-10 07:31] LABS: Glucose - Point of Care 163 mg/dl (70-99)
[2025-05-10 07:40] VITALS: BP 111/56
[2025-05-10] MEDS: NOVOLOG FLEXPEN-LOW RESISTANCE 1 UNITS SC ×3 (09:04→17:49)
--- NOTE | 2025-05-10 10:28 | W.PN.CRS1 ---
Today's Communication / Plan
-
low residue
stop invanz
Assessment/Plan
-
59 yo female with h/o sigmoid diverticulitis with pelvic abscess now POD #4 RAL sigmoidectomy, megan, drainage of abscess, repair of serosal rent and flex sig
AFVSS
Hgb: 9.7 (9.5)
WBC: 13.4 (13.2, 15.9)
Plan:
Advance to low residue
c/w NEHEMIAS, anticipate removal prior to dc
Stop Invanz
trend labs
encouraged activity/mobility
Analgesics with scheduled tylenol/toradol and prn oxycodone/dilaudid
Follow blood glucose on SSI while oral diabetic agents on hold
Lovenox sq for VTE ppx with SCDs while in bed
Or pathology pending
Subjective Data
Procedure
1) robotic sigmoidectomy 2) extensive lysis of adhesions 3) drainage pelvic abscess 4) repair serosal rent 5) flexible sigmoidectomy on 05/06/25
Subjective Data
Date of Service: May 10, 2025
Patietn states she has no nausea or vomiting. She is not that hungry. Having liquid BMs. Pain is controlled.
Objective Data
-
Vital Signs
Temp Pulse Resp BP Pulse Ox
98.7 F 84 16 111/56 99
05/10/25 07:40 05/10/25 07:40 05/10/25 07:40 05/10/25 07:40 05/10/25 07:40
Intake & Output
05/09/25 05/10/25 05/11/25
05:59 06:59 06:59
Intake Total 960 / 960 1550 / 1550
Output Total 505 / 505 90 / 90
Balance 455 / 455 1460 / 1460
Intake:
Oral fluids 960 / 960 1550 / 1550
Output:
Drain Output (Total)
Right Abdomen Duncan-Dickens A
Urine, Voided 400 / 400
Other:
How many times incontinent 1
MODERATE amount urine
Number of approximated MODERATE 5
amounts of urine
Number of approximated LARGE 1
amounts of urine
Lab Results
05/10/25 06:43
05/10/25 06:43
Physical Exam
-
General: No Acute Distress and AOx3
Abdomen: Soft, Non Distended and Non Tender
Skin: Warm and Dry
Incision: Clear, Dry, Intact
[2025-05-10 12:39] LABS: Glucose - Point of Care 193 mg/dl (70-99)
[2025-05-10 15:22] VITALS: BP 124/59
[2025-05-10] MEDS: TYLENOL PO ×2 (16:00→23:23)
[2025-05-10 17:12] LABS: Glucose - Point of Care 195 mg/dl (70-99)
[2025-05-10] MEDS: LOVENOX 40 MG SC (17:51)
[2025-05-10 21:29] LABS: Glucose - Point of Care 216 mg/dl (70-99)
[2025-05-10] MEDS: XANAX 0.25 MG PO (21:40)
[2025-05-10] MEDS: ROXICODONE 5 MG PO (21:40)
[2025-05-10 23:13] VITALS: BP 117/48
[2025-05-11] MEDS: TORADOL 15 MG IV ×2 (03:38→10:55)
[2025-05-11] MEDS: TYLENOL PO ×2 (03:38→03:42)
[2025-05-11 05:56] VITALS: BMI 31.4
[2025-05-11 07:12] LABS: Hematocrit 29.6 % (37.0-47.0); Hemoglobin 9.2 g/dL (12.0-16.0); Mean Corp Hgb Conc. 31.1 g/dL (33.0-37.0); Mean Corpuscular Volume 88.4 fL (81.0-99.0); Nucleated Red Blood Cells % 0 %; Platelet Count 268 10^3/uL (130-400); Red Cell Dist. Width 13.2 % (11.5-14.5)
[2025-05-11 07:45] VITALS: BP 120/60
[2025-05-11 08:23] LABS: Glucose - Point of Care 156 mg/dl (70-99)
[2025-05-11] MEDS: NOVOLOG FLEXPEN-LOW RESISTANCE 1 UNITS SC ×2 (08:48→13:04)
[2025-05-11] MEDS: TYLENOL 650 MG PO ×2 (08:49→13:04)
[2025-05-11 10:07] VITALS: BP 136/72
--- NOTE | 2025-05-11 10:41 | W.PN.CRS1 ---
Today's Communication / Plan
-
MOMx 1
SNF placement when bed available
Assessment/Plan
-
59 yo female with h/o sigmoid diverticulitis with pelvic abscess now POD #4 RAL sigmoidectomy, megan, drainage of abscess, repair of serosal rent and flex sig
AFVSS
Hgb: 9.2 (9.7, 9.5)
WBC: 9.2 (13.4, 13.2, 15.9)
Plan:
-Advance to low residue
-MATHEW drain removed at bedside
-encouraged activity/mobility
-Analgesics with scheduled tylenol/toradol and prn oxycodone/dilaudid
-Follow blood glucose on SSI while oral diabetic agents on hold
-Lovenox sq for VTE ppx with SCDs while in bed
-Or pathology pending
-Okay for discharge when SNF bed available
-MOM x 1
Subjective Data
Procedure
1) robotic sigmoidectomy 2) extensive lysis of adhesions 3) drainage pelvic abscess 4) repair serosal rent 5) flexible sigmoidectomy on 05/06/25
Subjective Data
Date of Service: May 11, 2025
Patient states she is doing well. Denies nausea or vomiting. She is tolerating a diet. Has flatus but no bowel movement yet.
Objective Data
-
Vital Signs
Temp Pulse Resp BP Pulse Ox
97.5 F 73 16 120/60 100
05/11/25 07:45 05/11/25 07:45 05/11/25 07:45 05/11/25 07:45 05/11/25 07:45
Intake & Output
05/10/25 05/11/25 05/12/25
06:59 06:59 06:59
Intake Total 1550 / 1550 1710 / 1710
Output Total 90 / 90 55 / 55
Balance 1460 / 1460 1655 / 1655
Intake:
Oral fluids 1550 / 1550 1710 / 1710
Output:
Drain Output (Total)
Right Abdomen Duncan-Dickens A
Other:
Number of approximated MODERATE 5 3
amounts of urine
Lab Results
05/11/25 06:26
05/10/25 06:43
Physical Exam
-
General: No Acute Distress and AOx3
Abdomen: Soft, Non Distended, Non Tender and Other (Mathew drain serous)
Skin: Warm and Dry
Incision: Clear, Dry, Intact
[2025-05-11] MEDS: MILK OF MAGNESIA 30 ML PO (10:55)
[2025-05-11 13:04] LABS: Glucose - Point of Care 307 mg/dl (70-99)
--- NOTE | 2025-05-11 14:01 | CM ---
entered order for discharge.
Reviewed PT OT eval
Offered VN to patient . She requested [facility] . Tanika from [facility] notified and referral placed in care port.
Son Mirna will drive her home.
Pt on room air.
PLAN Home with [facility] fax [phone]
[2025-05-11 14:11] VITALS: BP 144/68
== END 2025-05-11 15:35 | disposition home health service (06) | DRG 749 ==
LOC: 2 SOUTH 05:47
PROVIDERS: Physician Assistant; Registered Nurse; ADMITTING PHYSICIAN Surgery; FAMILY PHYSICIAN Internal Medicine
PROC: 0DNU4ZZ Release Omentum, Percutaneous Endoscopic Approach (ICD-10-PCS; 2025-05-06)
PROC: 0DBN4ZZ Excision of Sigmoid Colon, Percutaneous Endoscopic Approach (ICD-10-PCS; 2025-05-06)
DX: N82.5 Female genital tract-skin fistulae (principal); D62 Acute posthemorrhagic anemia; E87.1 Hypo-osmolality and hyponatremia; K57.20 Diverticulitis of large intestine with perforation and abscess without bleeding; N82.4 Other female intestinal-genital tract fistulae; N73.6 Female pelvic peritoneal adhesions (postinfective)
CPT/HCPCS: 80048; 80053; 82962; 83036; 85014; 85018; 85025; 85027; 85610; 85730; 86850; 86900; 86901; 88307; 97110; 97116; 97163; 97167; A4300; J1335

== ENCOUNTER 2025-05-13 01:15 | Inpatient (IN) | payer OTHER, SELFPAY ==
[2025-05-12 19:19] VITALS: BP 154/67
[2025-05-12 19:38] LABS: Hematocrit 33.3 % (37.0-47.0); Hemoglobin 10.9 g/dL (12.0-16.0); Mean Corp Hgb Conc. 32.7 g/dL (33.0-37.0); Mean Corpuscular Volume 84.5 fL (81.0-99.0); Nucleated Red Blood Cells % 0 %; Platelet Count 365 10^3/uL (130-400); Red Cell Dist. Width 13.1 % (11.5-14.5)
[2025-05-12 20:04] LABS: ALT (SGPT) 14 U/L (0-35); AST (SGOT) 20 U/L (14-36); Albumin 3.7 g/dl (3.5-5.0); Alkaline Phosphatase 75 U/L (38-126); Blood Urea Nitrogen 11 mg/dl (7-17); Calcium 8.9 mg/dl (8.4-10.2); Carbon Dioxide 28 mmol/L (22-30); Chloride 98 mmol/L (98-107); Glucose 292 mg/dl (70-99); Lipase 44 U/L (23-300); Potassium 4.3 mmol/L (3.5-5.1); Sodium 132 mmol/L (135-145); Total Protein 7.0 g/dl (6.3-8.2); eGFR > 60.00
[2025-05-12 20:11] VITALS: BP 149/51
--- NOTE | 2025-05-12 20:16 | ED.GENMED ---
History of Present Illness
General
Chief Complaint: Abdominal Pain
Time Seen by Provider: 05/12/25 20:15
History of Present Illness
History of Present Illness:
FOCUSED PAST MEDICAL HISTORY
- Diverticulitis with
REVIEW OF OLD RECORDS
- The patient had sigmoid diverticulitis with pelvic abscess and had robotic sigmoidectomy with extensive lysis of adhesions and drainage of pelvic abscess 05/06/[address] Gallego
- Call in note from Dr. Gallego: 'This patient of mine is almost a week status post robotic sigmoidectomy. She lives in [place]. She called the office this afternoon and says she is having a lot of pain. She was discharged yesterday and was doing
fine although she has low pain tolerance I would say. I told her to go to the ER at [facility]. I�d recommend bloodwork and a CT with water, soluble, oral and RECTAL contrast.
Note:
CHIEF COMPLAINT(S)
Abdominal pain post-sigmoidectomy.
HISTORY OF PRESENT ILLNESS
The patient is a 59-year-old female who recently underwent a robotic-assisted sigmoidectomy as performed by Dr. Gallego a few days ago. She now presents with increased pain, which she describes as being primarily in the lower abdomen. The pain is
localized mostly from the left to the right area, with minimal discomfort on the right side. She denies having any fevers at this time or in the period following her surgery. During the physical examination, palpation reveals tenderness,
particularly on the left side, with notable concern from the patient regarding the discomfort.
The patient has been scheduled for a computed tomography (CT) scan of the abdomen tonight per Dr. Khan request. The scan will involve both intravenous and oral contrast to adequately visualize any complications or abnormalities. The patient was
instructed to consume the oral contrast over a span of a few hours before the scan.
PAST SURGICAL HISTORY
- Recent robotic-assisted sigmoidectomy.
PHYSICAL EXAM
- General: Well appearing but appears somewhat uncomfortable, afebrile
- HEENT: Moist oral mucosa, she is wearing nasal cannula oxygen as she occasionally desats after narcotic analgesia given
- Cardiovascular: No murmurs, normal heart rate, regular rhythm, No chest wall tenderness
- Pulmonary: No respiratory distress, breath sounds are clear and equal
- Abdomen: Soft with no peritoneal signs, mild to moderate right sided abdominal tenderness, some mild right CVA tenderness and decreased active range of motion of the thoracolumbar spine
- Neurologic: Good strength all extremities, no coordination deficits
- Psychiatric: Appropriate mental status, normal insight and judgement
- Extremities: Nontender, no edema, moves all extremities equally
- Skin: No rash, no lesions
PLAN
- Perform computed tomography (CT) scan with oral and IV contrast to assess the postoperative status of the abdominal organs, especially focusing on the lower abdominal region.
- Administer narcotic pain medication as requested by the patient for pain management.
- Monitor patient symptoms and re-evaluate following test results to determine the need for possible discharge.
DIFFERENTIAL DIAGNOSIS
The Differential Diagnosis includes, in no particular order and is not limited to:
1. Postoperative ileus
2. Anastomotic leak
3. Abscess formation
4. Gastrointestinal perforation
5. Hematoma
6. Infection or inflammation
7. Bowel obstruction
8. Pain from surgical site
9. Diverticulitis recurrence
10. Adhesive disease
Disposition:
SUMMARY OF ENCOUNTER
The patient, a 59-year-old female, presented to the emergency department with increased lower abdominal pain following a recent robotic-assisted sigmoidectomy performed by Dr. Gallego. The pain primarily localized from the left to the right side,
with significant tenderness on the left. The radiologist noted an abnormality at the ureter, indicating a possible ureteral injury or urine leakage, which may be an unfortunate post-surgical complication. The patient expressed a desire to have
future surgical care handled by a preferred colorectal surgeon at [facility] due to trust and past associations. Coordination with a urologist, Dr. Del Rosario, and attempting communication with the patient�s preferred surgeon were underway.
MANAGEMENT OF THE PATIENTS CARE WAS DISCUSSED WITH
Discussion of possible post-surgical complications and further management was coordinated with Dr. Del Rosario, the on-call urologist. Attempts were made to contact the patients preferred colorectal surgeon at [facility], as requested by the patient.
PLAN
- Await feedback from the urologist, Dr. Del Rosario, regarding further management of the noted ureteral abnormality.
- Attempt to facilitate communication with the patient�s preferred surgeon, provided hospital policies allow for such referrals post-surgery at a different institution.
MEDICAL DECISION MAKING
- Complexity of Data Reviewed: Chronic conditions affecting care include the recent robotic-assisted sigmoidectomy and the potential complication involving the ureter. The Differential Diagnosis includes postoperative ileus, anastomotic leak,
abscess formation, gastrointestinal perforation, hematoma, infection or inflammation, bowel obstruction, pain from the surgical site, diverticulitis recurrence, and adhesive disease.
- Data:
Category 3
Discussion of management with Dr. Del Rosario, an on-call urologist, concerning the noted abnormality at the ureter. Attempts to coordinate care with the patient�s preferred colorectal surgeon at [facility] were also made.
-Risk:
Consideration of Admission/Observation: Escalation of care including admission/observation was considered given the complexity and risk of the patients presenting complaint, exam findings, and/or underlying comorbidities. However, ultimately I feel
the patient is safe for outpatient management with close follow-up. Reasoning: Work-up reassuring, does not reveal any acute life/organ-threatening processes, patients symptoms well controlled upon reevaluation, reexamination is reassuring, vitals
are stable, patient agreeable with discharge, reliable for follow-up.
RADIOLOGY
- Rupture of proximal right ureter noted with urinoma
LABS
- White count 10.0, glucose 292, lactic 2.4
DIAGNOSIS
Right ureteral rupture
UPDATE
- I informed the patient of the CT findings. She initially told me that she only wanted to have Dr. Gallego be involved with her care. Dr. Gallego is not available currently. The patient initially asked for transfer to [facility] even though they did not
participate with the surgery. She did have a second opinion preop evaluation with Dr. Jose Roberto Spears who apparently is Chief of colorectal surgery at [facility]. I called [facility] and Dr. Logan (on-call colorectal surgeon) was notified and she do not feel
the patient required transfer as there was nothing from a colorectal standpoint. I spoke to Dr. Tristan of urology at [facility]. He feels patient may need stent or PCN but feels that these could be done here at [facility]. Dr. Tristan spoke to the urologist
at [facility]. Dr. Del Rosario did speak to the patient over the phone. Ultimately was decided that the patient will stay here at [facility] for further management. I also discussed management with Dr. Miramontes.
Past History
Past History
ED Past Medical History: NIDDM and Other (Diverticulitis, sleep apnea, anxiety)
ED Past Surgical History: Cholecystectomy, , Gynecological and Orthopedic
Social History
Tobacco: Former smoker
Alcohol: None
Drug: None
Living: with family
Employment: Employed
Phy Exam
Physical Exam
Physical Exam:
See HPI
Course
Orders/Labs/Results
Orders:
Orders
05/12/25 19:30
Complete Blood Count/With Diff Urgent
Comprehensive Metabolic Panel Urgent
Lactate Level [Lactic Acid] Urgent
Lipase Urgent
05/12/25 20:15
CT Abd/pel W Iv And Oral Contr Urgent
Comment:
Reason For Exam: AND RECTAL CONTRAST per Julián; pain after sigmoid
Iohexol [Omnipaque] See Protocol PO NOW STA
05/12/25 20:25
0.9% Sodium Chloride 1000 ml [Nss] 1,000 ml IV BOLUS
HYDROmorphone [Dilaudid] 1 mg IV NOW STA
Ondansetron Injectable [Zofran] 4 mg IV NOW STA
05/13/25 00:22
HYDROmorphone [Dilaudid] 1 mg IV NOW STA
05/13/25 00:27
CefTRIAXone [Rocephin] 1,000 mg IV NOW STA
05/13/25 00:44
Urinalysis Reflex To Culture Urgent
Date Specimen was Collected: 05/13/25
Time Specimen was Collected: 00:42
Urine Microscopic Reflex Cult Urgent
Urine Culture Urgent
ARIANNA Source: U
Specimen Description:
Date Specimen was Collected: 05/13/25
Time Specimen was Collected: 00:42
05/13/25 01:08
Admit/Transfer Patient As Directed
Co-Sign Provider:
Level of Care: Inpatient admission
Assign to:: IMU- Intermediate Care
Physician / Group: Kulwinder
Diagnosis: Proximal Ureter Rupture
Reason for Hospitalization: Proximal Ureter Rupture
Expected length of stay greater than two midnights?: Yes
ELOS- Estimated Length of Stay in days: 4
I certify the patient meets the requirements for IP care: Yes
Code Status As Directed
Resuscitation Status: Full Code
PRN Pain Medication Management As Directed
May give lesser potent ordered pain med per pt: Yes
preference::
Protocol:: Medication orders for pain may be administered in a
manner that supports deferring to patient preference
when the pt is:
- Requesting an ordered lesser potent pain medication.
Least to most potent pain medications are defined
as: acetaminophen < NSAID < tramadol < opioids
(morphine, oxycodone, hydromorphone).
- Requesting a lesser dose of the same medication IF
ORDERED.
- Requesting a less intrusive route of administration
if both routes are prescribed by the provider (PO <
IV).
Abnormal Lab Results
05/12/25 05/13/25
19:30 00:44
RBC 3.94 L 10^6/uL
(4.20-5.40)
Hgb 10.9 L g/dL
(12.0-16.0)
Hct 33.3 L %
(37.0-47.0)
MCHC 32.7 L g/dL
(33.0-37.0)
Abs Immat Gran (auto) 0.1 H 10^3/uL
(0-0.05)
Absolute Neuts (auto) 8.0 H 10^3/uL
(1.4-6.5)
Absolute Lymphs (auto) 0.9 L 10^3/uL
(1.2-3.4)
Absolute Monos (auto) 0.8 H 10^3/uL
(0.1-0.6)
Immature Gran % 1.0 H %
(0-0.5)
Neutrophils % 79.8 H %
(42.2-75.2)
Lymphocytes % 8.6 L %
(20.5-51.1)
Sodium 132 L mmol/L
(135-145)
Glucose 292 H mg/dl
(70-99)
Lactic Acid 2.4 H mmol/L
(0.7-2.0)
Leukocyte Esterase Rfl 1+ A
(Negative)
05/12/25 19:30
05/12/25 19:30
Vital Signs
Initial and Last Documented VS:
Initial Vital Signs
Temp Pulse Resp BP Pulse Ox
37.6 C 92 20 154/67 98
05/12/25 19:19 05/12/25 19:19 05/12/25 19:19 05/12/25 19:19 05/12/25 19:19
Last Documented Vital Signs
Temp Pulse Resp BP Pulse Ox
37.7 C 95 12 149/73 99
05/13/25 00:37 05/13/25 00:30 05/13/25 00:30 05/13/25 00:19 05/13/25 00:30
*Pulse Oximetry
SaO2: 98
Oxygen Mode of Delivery: Room air
Patient hypoxic: no
*Critical Care Note
Total Time (30-74mins, 75-104mins- exclusive of procedures): Not Applicable
ED Attending Note
-
Portions of this chart may have been created with voice recognition software.� Occasional wrong word or��sound alike� substitutions may have occurred due to the inherent limitations of voice recognition software.
Discharge Plan
Departure
Patient Disposition: Admit
Date of Disposition: 05/13/25
Time of Disposition: 00:21
Presentation/result/management discussed w/ accepting MD/DO: Hospitalist
Discharge Problem:
Complication of surgery
Interventions
Interventions:
*Risk Screen - Suicide Last Done: 05/12/25 20:56
*General Assessment Last Done: 05/12/25 19:19
*Neglect/Abuse Screening Last Done: 05/12/25 20:56
*ED- Fall Risk Assessment Last Done: 05/12/25 20:56
*ED COVID-19 Vaccine History Last Done: 05/12/25 20:56
*ED Influenza Vaccine History Last Done: 05/12/25 20:56
PL-Ocmlfy-Rhtktkdqhf Assessment Last Done: 05/12/25 20:46
[2025-05-12] MEDS: NSS 1000 IV (20:34)
[2025-05-12] MEDS: OMNIPAQUE 50 ML PO (20:35)
[2025-05-12] MEDS: ZOFRAN 4 MG IV (20:35)
[2025-05-12] MEDS: DILAUDID 1 MG IV (20:36)
[2025-05-12 20:45] VITALS: BP 149/51
[2025-05-12 21:00] VITALS: BP 144/56
[2025-05-12 21:02] VITALS: BMI 34.0
[2025-05-12 22:20] VITALS: BP 138/63
[2025-05-13] VITALS (21 sets, daily range): BP systolic 92–149; BP diastolic 38–73
[2025-05-13] MEDS: ROCEPHIN 1000 MG IV ×2 (00:38→23:52)
[2025-05-13] MEDS: DILAUDID 1 MG IV (00:39)
[2025-05-13 01:10] LABS: Urine Character Clear (Clear)
--- NOTE | 2025-05-13 01:13 | HPS.HSE ---
Family Physician
-
Family Physician: NOT KNOW UNKNOWN - PT DOES
Chief Complaint
-
Abd Pain
History of Present Illness
Patient is a 59y F with PMH significant for DM-II and recurrent diverticulitis s/p robotic sigmoid resection on 05/06 who presents to ED complaining of abdominal pain. Patient was discharged from the hospital on 05/11 and was feeling fairly well
at that time. RUQ NEHEMIAS drain was removed just prior to discharge. Patient states that she developed RUQ abdominal pain wrapping around to the R flank overnight last night. The pain persisted throughout the day today. She denies any N/V, fevers /
chills, etc. She called colorectal surgery and was advised to present to the ED for further evaluation.
Imaging in the ED shows acute R proximal ureter rupture with adjacent urinoma.
Medical History
Past Medical History
Past Medical History: Reports Other
Additional Past Medical History:
DM-II
UMA not on CPAP
Recurrent Sigmoid Diverticulitis
Obesity
Asthma
Past Surgical History: Reports Other
Additional Past Surgical History:
Robotic Sigmoid Resection (05/06/25)
Cholecystectomy
Hysterectomy
Social History
Tobacco: Former Smoker (Quit smoking many years ago.)
Alcohol: None
Drug: None
Family History
Family History: Not pertinent
Allergies / Home Medications
Allergies reflects when Allergies were last updated in [employer].
Home Medications with original date entered in [employer]
Allergy/Medication List:
Allergies
Allergy/AdvReac Type Severity Reaction Status Date / Time
ciprofloxacin (From Cipro) Allergy Unknown Verified 05/12/25 19:19
levofloxacin (From Levaquin) Allergy palpitation Verified 05/12/25 19:19
s
Penicillins Allergy rash as a Verified 05/12/25 19:19
child;
tolerated
ceftriaxone
& cefdinir
Home Medications
alprazolam 0.25 mg tablet (Xanax) 0.25 mg PO HS Mental Health/Anxiety 11/15/22
fluticasone furoate 100 mcg-vilanterol 25 mcg/dose inhalation powder (Breo Ellipta) 1 inh inhalation R DAILYPRN PRN SOB 11/15/22
Vitamin C 1 tab PO PRN PRN takes when she feels like she is sick 04/30/25
albuterol sulfate 90 mcg/actuation aerosol inhaler 1 inh inhalation ONCE PRN sob 04/30/25
glyburide 1.25 mg-metformin 250 mg tablet 1 tab PO .WITH MEALS Diabetes 04/30/25
magnesium 1 cap PO DAILY Supplement 04/30/25
multivitamin 1 unit PO DAILY Supplement 04/30/25
oxycodone 5 mg tablet 5 mg PO DAILY PRN pain 04/30/25
oxycodone 5 mg tablet 5 mg PO Q6H PRN Pain #20 tabs 05/11/25
Review of Systems
-
History Source: Patient
A 12 point ROS was completed and negative except as noted: Yes
Constitutional: Denies Fever or Chills
Respiratory: Denies Cough or Trouble Breathing
Cardiac: Denies Chest Pain or Palpitations
Abdomen/GI: Reports Abdominal Pain; Denies Nausea, Vomiting, Diarrhea, Bloody Stools or Black Stools
: Reports Flank Pain; Denies Dysuria or Frequency
Neurological: Denies Dizzy or Headache
Physical Exam
Vital Signs
Vital Signs
Temp Pulse Resp BP Pulse Ox
99.9 F 95 12 149/73 99
05/13/25 00:37 05/13/25 00:30 05/13/25 00:30 05/13/25 00:19 05/13/25 00:30
Physical Exam
General: Other (59y F in mild distress due to pain.)
HEENT: Moist mucous membranes and Other (Thick neck. No appreciable JVD.)
Respiratory: Other (Decreased at bases - otherwise clear.)
Cardiac: S1/S2 and Regular Rhythm; No Murmur
GI: Other (Obese, pos mild tenderness diffusely - but most evident in RUQ area. Surgical sites intact without bleeding.)
Musculoskeletal: No Clubbing, No Cyanosis and No Edema
Neuro: AO x 3
Laboratory Results
-
05/12/25 19:30
05/12/25 19:30
Laboratory Results
Lactic Acid 2.4 mmol/L (0.7-2.0) H 05/12/25 19:
Total Bilirubin 0.5 mg/dl (0.2-1.3) 05/12/25:
AST 20 U/L (14-36) 05/12/25:30
ALT 14 U/L (0-35) 05/12/25:30
Alkaline Phosphatase 75 U/L (38-126) 05/12/25:30
Lipase 44 U/L (23-300) 05/12/25 19:30
Impression/Plan
-
A/P: Patient is a 59y F with PMH significant for DM-II, asthma and recent robotic sigmoid resection who presents to ED complaining of abdominal pain.
Acute Right Proximal Ureter Rupture
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
- Admit for further evaluation and treatment.
- Urology consulted for further evaluation / intervention.
- NPO, IVFs, pain control, etc.
- Empiric abx for now pending culture data.
s/p Robotic Sigmoid Resection 05/06/25
- Stable. CT done today with no evidence of anastomotic leak, etc.
- NPO for now as noted above.
- Continue pain control / supportive care.
- Colorectal Surgery consulted for follow-up.
DM-II
- Stable. Hold PO medications.
- Follow glucose and cover with SSI as needed.
- A1C on 04/28 was 7.1%.
Asthma without Acute Exacerbation
- Stable. Continue home inhaler regimen.
- Albuterol PRN.
Obesity due to excess calories
- Affects all aspects of care.
- Encourage healthy diet and increased activity with goal of weight loss.
DVT Prophylaxis: SCDs
Code Status: Full
[2025-05-13 01:30] LABS: Urine Squamous Cell >30 /LPF (Few)
[2025-05-13 01:31] LABS: Urine Red Blood Cell 0-2 /HPF (0-2); Urine White Cell 0-2 /HPF (0-5)
[2025-05-13] MEDS: NSS 1000 IV (03:43)
--- NOTE | 2025-05-13 04:38 | PTCARENOTE ---
Received pt from ER alert oriented tolerated transfer well.Pt ambulated into room to BR to void without difficulty.Pt had a moderate void.VS stable,Sr on bus monitor.Physical assessment preformed,abd surgical incisions [employer] approx surgical glue
present.IVT initiated at 80 mls hour.O2 applied 2lnc pt wears at HS at home.Sleeping after assessment.
[2025-05-13] MEDS: DILAUDID 0.5 MG IV (06:05)
[2025-05-13 06:30] LABS: Hematocrit 30.9 % (37.0-47.0); Hemoglobin 9.7 g/dL (12.0-16.0); Mean Corp Hgb Conc. 31.4 g/dL (33.0-37.0); Mean Corpuscular Volume 88.3 fL (81.0-99.0); Platelet Count 308 10^3/uL (130-400); Red Cell Dist. Width 13.1 % (11.5-14.5)
[2025-05-13 07:02] LABS: Blood Urea Nitrogen 8 mg/dl (7-17); Calcium 8.1 mg/dl (8.4-10.2); Carbon Dioxide 27 mmol/L (22-30); Chloride 103 mmol/L (98-107); Estimated Creatinine Clearance 105 ml/min; Glucose 184 mg/dl (70-99); Potassium 4.4 mmol/L (3.5-5.1); Sodium 136 mmol/L (135-145); eGFR > 60.00
--- NOTE | 2025-05-13 08:30 | CON.CRS ---
Consultation
-
Date/Time Consultation Requested: 05/13/2025, 03:38
Date/Time Consultation Performed: 05/13/2025, 08:30
Requesting Provider: Terry Miramontes DO
Performing Provider: Yandel Llanos MD
Reason for Consultation: R sided abdominal pain
Medical History
-
Chief Complaint: right sided abdominal pain
History of Present Illness:
59 yo female who was recently discharged from a robotic sigmoidectomy for diverticulitis by Dr. Gallego on 05/06/25, presents to the ER after calling the office complaining of severe RLQ pain. Prior to this, she has mild tenderness over her surgical
incisions. She had been tolerating a diet, had bowel function, and no nausea or vomiting. In the ER her WBC was normal as well as her vitals. CT A/P with po/IV/rectal contrast showed an acute right proximal ureter rupture with extravasation of
excreted contrast material into the right retroperitoneum filling a 6 cm URINOMA. Mild distention of the right intrarenal collecting system proximal to the rupture. No evidence of an anastamotic leak. 4.8 cm collection of fluid and air in the
presacral space (either an abscess or seroma). Due to this findings, urology was consulted. IV antibiotics were restarted.
Currently the patient states she has mostly right sided abdominal pain. Her lower pelvis and rectum are not painful. Denies nausea or vomiting. She has flatus and bowel movements. Denies blood in her stool.
Given the recent surgery, we have been consulted for further recommendations.
Past Medical History
Past Medical History: Other (DM-II, UMA, recurrent Sigmoid Diverticulitis, Obesity, Asthma)
Past Surgical History: Cholecystectomy, , Gynecological (hystrectomy) and Other (Robotic Sigmoid Resection (05/06/25))
Social History
Tobacco: Former Smoker
Alcohol: None
Family History
Family History: Reviewed & Not Pertinent
Allergies / Home Medications
Allergy/AdvReac Type Severity Reaction Status Date / Time
ciprofloxacin (From Cipro) Allergy Unknown Verified 05/12/25 19:19
levofloxacin (From Levaquin) Allergy palpitation Verified 05/12/25 19:19
s
Penicillins Allergy rash as a Verified 05/12/25 19:19
child;
tolerated
ceftriaxone
& cefdinir
�Medication �Instructions �Recorded �Confirmed �Type
alprazolam 0.25 mg tablet (Xanax) 0.25 mg PO HS Mental Health/Anxiety 11/15/22 05/13/25 History
fluticasone furoate 100 1 inh inhalation R DAILYPRN PRN SOB 11/15/22 05/13/25 History
mcg-vilanterol 25 mcg/dose
inhalation powder (Breo Ellipta)
Vitamin C 1 tab PO PRN PRN takes when she 04/30/25 05/13/25 History
feels like she is sick
albuterol sulfate 90 mcg/actuation 1 inh inhalation ONCE PRN sob 04/30/25 05/13/25 History
aerosol inhaler
glyburide 1.25 mg-metformin 250 mg 1 tab PO .WITH MEALS Diabetes 04/30/25 05/13/25 History
tablet
magnesium 1 cap PO DAILY Supplement 04/30/25 05/13/25 History
multivitamin 1 unit PO DAILY Supplement 04/30/25 05/13/25 History
oxycodone 5 mg tablet 5 mg PO DAILY PRN pain 04/30/25 05/13/25 History
oxycodone 5 mg tablet 5 mg PO Q6H PRN Pain #20 tabs 05/11/25 05/13/25 Rx
Review of Systems
-
History Source: Patient
All other systems: Negative unless noted
Abdomen/GI: Abdominal Pain (R sided)
A 10 point review of systems was completed, and was negative except as per HPI.
Physical Exam
Vital Signs
Temp 100.2 F 05/13/25 06:02
Pulse 88 05/13/25 06:00
Resp Rate 15 05/13/25 06:00
Blood pressure 102/46 05/13/25 04:00
SaO2 99 05/13/25 06:00
05/12/25 05/13/25 05/14/25
06:59 06:59 06:59
Actual Weight 101.3 kg
Body Mass Index (BMI) 34.0
Lab Results / Allergies
05/13/25 06:03
05/13/25 06:03
WBC 13.1 10^3/uL (4.8-10.8) H 05/13/25 06:03
Hgb 9.7 g/dL (12.0-16.0) L 05/13/25 06:03
Hct 30.9 % (37.0-47.0) L 05/13/25 06:03
Plt Count 308 10^3/uL (130-400) 05/13/25 06:03
Abs Immat Gran (auto) 0.1 10^3/uL (0-0.05) H 05/12/25 19:30
Neutrophils % 79.8 % (42.2-75.2) H 05/12/25 19:30
Allergy/AdvReac Type Severity Reaction Status Date / Time
ciprofloxacin (From Cipro) Allergy Unknown Verified 05/12/25 19:19
levofloxacin (From Levaquin) Allergy palpitation Verified 05/12/25 19:19
s
Penicillins Allergy rash as a Verified 05/12/25 19:19
child;
tolerated
ceftriaxone
& cefdinir
Physical Exam
General: Well Developed, Well Nourished and No Apparent Distress
GI: Soft, Non Tender, Non Distended and Other (incisions c/d/i with dermabond on top, RLQ drain side healing and covered with gauze, no erythema)
Neuro: AO x 3
Psych: Calm
Data Reviewed
-
CT Scan: Image Personally Visualized and interpreted, Report Reviewed by me and Discussed with Patient
Labs: Labs Reviewed by me, Discussed with Physician and Discussed with Patient
Old Records: Reviewed
Assessment / Plan
-
Assessment: 59 yo female who recently underwent a robotic sigmoidectomy on 05/[address] Gallego, presents with RLQ pain and found to have an acute right proximal ureter rupture
Plan:
-OR today with urology for a right ureteral stent placement, RGP, possible ureteroscopy. PCN if stent unable to be placed.
-On rocephin IV q 24 hours
-Trend labs/vitals - WBC 13.1, tmax 100.2
-No plans for surgery from a colorectal standpoint. Imaging reviewed with Dr. Strong.
-NPO for OR. Maintain IVFs.
-Urine cx pending
-OR pathology from surgery on 05/06
-Recommend lovenox 40meq daily for DVT prophylaxis if okay with urology.
-Discussed above with patient
--- NOTE | 2025-05-13 08:31 | W.PN.HOSP.TC ---
Today's Communication/Plan
-
see A/P
Assessment / Plan
Assessment / Plan
HPI: 59 yo F with PMH significant for DM-II and recurrent diverticulitis s/p robotic sigmoid resection on 05/06 who presented to ED complaining of abdominal pain. Patient was discharged from the hospital on 05/11 and was feeling fairly well at
that time. RUQ NEHEMIAS drain was removed just prior to discharge. Patient states that she developed RUQ abdominal pain wrapping around to the R flank. She denies any N/V, fevers / chills, etc. She called colorectal surgery and was advised to present
to the ED for further evaluation.
Imaging in the ED shows acute R proximal ureter rupture with adjacent urinoma.
CT AP:
1. ACUTE RIGHT PROXIMAL URETERAL RUPTURE with extravasation of excreted contrast material into the right retroperitoneum filling a 6 cm URINOMA. Mild distention of the right intrarenal collecting system proximal to the rupture.
2. Recent sigmoidectomy and descending colon-rectal anastomosis without CT evidence for anastomotic leak.
3. 4.8 cm collection of fluid and air in the presacral space (either an abscess or seroma).
4. Moderate diffuse hepatic steatosis.
5. Severe soft tissue emphysema in the right anterior abdominal wall consistent with recent surgery.
6. Previous cholecystectomy and AMELIA-BSO.
A/P:
# Acute Right Proximal Ureter Rupture
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
Urology consulted, plan for OR for right ureteral stent placement, RGP, possible ureteroscopy
Pt is medically stable for urgent/emergent procedure. Benefit of procedure outweighs risk.
Cont NPO, IVFs, pain control, etc.
Follow urine culture
Cont empiric abx ceftriaxone for now
# Recent Robotic Sigmoid Resection 05/06/25, Stable.
CT done on DOA with no evidence of anastomotic leak, etc. Report above.
Continue pain control / supportive care.
Colorectal Surgery consulted for follow-up.
# DM-II, Stable.
Hold PO medications.
Follow glucose and cover with SSI as needed.
A1C on 04/28 was 7.1%.
# Asthma without Acute Exacerbation, Stable.
Continue home inhaler regimen.
Albuterol PRN.
# Obesity due to excess calories
BMI 34
Affects all aspects of care.
Encourage healthy diet and increased activity with goal of weight loss.
DVT Prophylaxis: SCDs
Code Status: Full
Anticipated Discharge: > 48 hours
Subjective/Interval History
-
Date of Service: May 13, 2025
Objective Data
-
Labs:
Laboratory Results
05/13/25
06:03
WBC 13.1 H
Hgb 9.7 L
Hct 30.9 L
Plt Count 308
Sodium 136
Potassium 4.4
Chloride 103
Carbon Dioxide 27
BUN 8
Creatinine 0.7
Glucose 184 H
Calcium 8.1 L
Vital Signs:
Vital Signs
Temp Pulse Resp BP Pulse Ox
37.9 C 88 15 102/46 99
05/13/25 06:02 05/13/25 06:00 05/13/25 06:00 05/13/25 04:00 05/13/25 06:00
I&O
05/12/25 05/13/25 05/14/25
06:59 06:59 06:59
Intake Total 300 / 300
Balance 300 / 300
Review of Systems
-
History Source: Patient
All other systems: Reviewed and negative
Physical Exam
-
General: Well Developed, Well Nourished, No Apparent Distress, Comfortable and Conversant
HEENT: Normocephalic, Atraumatic, Nose Appears Normal, Ears Appear Normal and Oxygen (1-2L NC, pt states on nocturnal O2 at home )
Respiratory: Clear to Auscultation and Non Labored Respirations; Negative Accessory Resp Muscle Use
Cardiac: Regular Rhythm and S1/S2
GI: Soft, Nontender, Nondistended and Normal Bowel Sounds
Skin: Warm and Dry
Neuro: Awake, Alert and Oriented
Psych: Calm and Intact Judgement/Insight
Data Reviewed
-
CT Scan: Report Reviewed by me
Labs: Labs Reviewed by me
--- NOTE | 2025-05-13 08:32 | CONS.URO ---
Consultation
-
Date/Time Consultation Performed: 05/13/25, 7:00AM
Requesting Provider: Terry Miramontes
Performing Provider: Natalee Mcmahan
Reason for Consultation: R proximal ureteral injury
Medical History
History of Present Illness
59F with diverticulitis s/p robotic sigmoidectomy with Dr. Gallego and bilateral ureteral catheter placement by Dr. Hills 05/06/25 who presents with 1 week delayed presentation of R proximal ureteral injury. She had right flank/lower abdominal
pain 2 days ago. No other symptoms such as fevers/chills, nausea/vomiting. Has been able to tolerate PO.
In the ED, afebrile, vitals signs stable.
WBC 9 > 13, Cr 0.[address] A/P with contrast (Reviewed by me) - shows mild R hydronephrosis with contrast extravasation at the R proximal ureter, consistent with ureteral injury. No large fluid collection identified. Perinephric/periureteral stranding noted.
Allergies/Home Medications
Allergies
Allergy/AdvReac Type Severity Reaction Status Date / Time
ciprofloxacin (From Cipro) Allergy Unknown Verified 05/12/25 19:19
levofloxacin (From Levaquin) Allergy palpitation Verified 05/12/25 19:19
s
Penicillins Allergy rash as a Verified 05/12/25 19:19
child;
tolerated
ceftriaxone
& cefdinir
Home Medications
�Medication �Instructions �Recorded �Confirmed �Type
alprazolam 0.25 mg tablet (Xanax) 0.25 mg PO HS Mental Health/Anxiety 11/15/22 05/13/25 History
fluticasone furoate 100 1 inh inhalation R DAILYPRN PRN SOB 11/15/22 05/13/25 History
mcg-vilanterol 25 mcg/dose
inhalation powder (Breo Ellipta)
Vitamin C 1 tab PO PRN PRN takes when she 04/30/25 05/13/25 History
feels like she is sick
albuterol sulfate 90 mcg/actuation 1 inh inhalation ONCE PRN sob 04/30/25 05/13/25 History
aerosol inhaler
glyburide 1.25 mg-metformin 250 mg 1 tab PO .WITH MEALS Diabetes 04/30/25 05/13/25 History
tablet
magnesium 1 cap PO DAILY Supplement 04/30/25 05/13/25 History
multivitamin 1 unit PO DAILY Supplement 04/30/25 05/13/25 History
oxycodone 5 mg tablet 5 mg PO DAILY PRN pain 04/30/25 05/13/25 History
oxycodone 5 mg tablet 5 mg PO Q6H PRN Pain #20 tabs 05/11/25 05/13/25 Rx
Physical Exam
Vital Signs
Vital Signs
Temp Pulse Resp BP Pulse Ox
100.2 F 88 15 102/46 99
05/13/25 06:02 05/13/25 06:00 05/13/25 06:00 05/13/25 04:00 05/13/25 06:00
Lab / Testing Results
Laboratory Results
05/13/25 06:03
05/13/25 06:03
Physical Exam
General: Well Developed, Well Nourished, No Apparent Distress and Comfortable
HEENT: Normocephalic
Respiratory: Clear
GI: Soft, Non Tender and Non Distended
Genito-urinary: No Costovertebral Tend
Skin: Warm and Dry
Neuro: Awake and Alert
Assessment / Plan
-
59F with diverticulitis s/p robotic sigmoidectomy with Dr. Gallego and bilateral ureteral catheter placement by Dr. Hills 05/06/25 who presents with 1 week delayed presentation of R proximal ureteral injury. Likely due to ureteral catheter
placement given proximal nature of injury
Plan:
- OR today for right ureteral stent placement, RGP, possible ureteroscopy
- Pt understands that if we are unable to place indwelling ureteral stent, a PCN may be required
- F/u UCx
- Trend WBC, lactate, and fever curve
- NPO, IVF
[2025-05-13] MEDS: DILAUDID 0.25 MG IV (10:08)
--- NOTE | 2025-05-13 11:37 | PTCARENOTE ---
Patient AAOx4, pleasant. VSS. Wears 2L NC when sleeping. See mar for pain management. Patient NPO for surgery. Awaiting OR today.
--- NOTE | 2025-05-13 13:41 | CM ---
Addendum entered by Guillermo Gifford 05/13/25 13:43:
Patient went home last admission with [facility] so referral sent to them to follow for discharge.
Original Note:
I.A: Completed by YINKA Li. Patient was just hospitalized.
Patient lives with her parents who are in their 90's in a 2 Story House with 1 step to enter, uses a cane, No VN services, and has been to [facility] in the past.
PCP: Dr. Alexandrea Kendall
Pharmacy: [facility] [place] [facility]
PLAN: Anticipate SNF when ready vs. Home PT
[2025-05-13] MEDS: NOVOLOG FLEXPEN-LOW RESISTANCE SC (13:42)
[2025-05-13 13:51] LABS: Glucose - Point of Care 189 mg/dl (70-99)
[2025-05-13 16:22] LABS: Glucose - Point of Care 166 mg/dl (70-99)
--- NOTE | 2025-05-13 17:00 | PTCARENOTE ---
Received patient from PACU in bed. Patient drowsy but arousable and orientedx3. Pain controlled at this time. VSS. Patient waiting for dinner to arrive. Will closely monitor.
[2025-05-13 17:55] LABS: Glucose - Point of Care 192 mg/dl (70-99)
[2025-05-13] MEDS: NOVOLOG FLEXPEN-LOW RESISTANCE 1 UNITS SC (18:38)
[2025-05-13] MEDS: TYLENOL 650 MG PO (20:46)
[2025-05-13] MEDS: NSS IV (20:48)
[2025-05-13 21:28] LABS: Glucose - Point of Care 407 mg/dl (70-99)
[2025-05-13 21:54] LABS: Glucose 412 mg/dl (70-99)
[2025-05-13 23:28] LABS: Glucose - Point of Care 393 mg/dl (70-99)
[2025-05-13] MEDS: NOVOLOG FLEXPEN 5 UNITS SC (23:51)
[2025-05-14] VITALS (11 sets, daily range): BP systolic 108–125; BP diastolic 50–103; PULSE 79; O2SAT 95–98
[2025-05-14] MEDS: NSS IV (02:27)
[2025-05-14 03:17] LABS: Glucose - Point of Care 351 mg/dl (70-99)
[2025-05-14] MEDS: ROXICODONE 5 MG PO ×2 (04:45→13:37)
[2025-05-14] MEDS: TYLENOL 650 MG PO ×2 (04:45→13:37)
[2025-05-14 04:51] LABS: Hematocrit 37.1 % (37.0-47.0); Hemoglobin 11.5 g/dL (12.0-16.0); Mean Corp Hgb Conc. 31.0 g/dL (33.0-37.0); Mean Corpuscular Volume 87.9 fL (81.0-99.0); Nucleated Red Blood Cells % 0 %; Platelet Count 356 10^3/uL (130-400); Red Cell Dist. Width 12.8 % (11.5-14.5)
--- NOTE | 2025-05-14 04:58 | W.PN.UPDATE ---
Update Note
Progress Note Update
Blood sugar 393>351 at night , treated once with low resistance NovoLog, Will change it to Moderate resistance. Diabetes management consult.
[2025-05-14] MEDS: NOVOLOG FLEXPEN 9 UNITS SC (05:07)
[2025-05-14 05:13] LABS: Blood Urea Nitrogen 10 mg/dl (7-17); Calcium 9.0 mg/dl (8.4-10.2); Carbon Dioxide 26 mmol/L (22-30); Chloride 102 mmol/L (98-107); Estimated Creatinine Clearance 121 ml/min; Glucose 316 mg/dl (70-99); Magnesium 2.2 mg/dl (1.6-2.3); Potassium 4.9 mmol/L (3.5-5.1); Sodium 133 mmol/L (135-145); eGFR > 60.00
[2025-05-14 05:17] LABS: Glucose - Point of Care 323 mg/dl (70-99)
[2025-05-14 08:03] LABS: Glucose - Point of Care 288 mg/dl (70-99)
--- NOTE | 2025-05-14 08:17 | W.PN.HOSP.TC ---
Today's Communication/Plan
-
see A/P
Assessment / Plan
Assessment / Plan
HPI: 59 yo F with PMH significant for DM-II and recurrent diverticulitis s/p robotic sigmoid resection on 05/06 who presented to ED complaining of abdominal pain. Patient was discharged from the hospital on 05/11 and was feeling fairly well at
that time. RUQ NEHEMIAS drain was removed just prior to discharge. Patient states that she developed RUQ abdominal pain wrapping around to the R flank. She denies any N/V, fevers / chills, etc. She called colorectal surgery and was advised to present
to the ED for further evaluation.
Imaging in the ED shows acute R proximal ureter rupture with adjacent urinoma.
CT AP:
1. ACUTE RIGHT PROXIMAL URETERAL RUPTURE with extravasation of excreted contrast material into the right retroperitoneum filling a 6 cm URINOMA. Mild distention of the right intrarenal collecting system proximal to the rupture.
2. Recent sigmoidectomy and descending colon-rectal anastomosis without CT evidence for anastomotic leak.
3. 4.8 cm collection of fluid and air in the presacral space (either an abscess or seroma).
4. Moderate diffuse hepatic steatosis.
5. Severe soft tissue emphysema in the right anterior abdominal wall consistent with recent surgery.
6. Previous cholecystectomy and AMELIA-BSO.
A/P:
# Acute Right Proximal Ureter Rupture
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
Urology consulted,
s/p OR 05/13, pending OR report, suspect right ureteral stent placement, RGP, possible ureteroscopy
Cont pain control with Tylenol PRN, Oxycodone PRN, Dilaudid PRN.
Follow urine culture
Cont empiric abx ceftriaxone for now
PT OT eval
# Recent Robotic Sigmoid Resection 05/06/25, Stable.
CT done on DOA with no evidence of anastomotic leak, etc. Report above.
Continue pain control / supportive care.
Colorectal Surgery consulted for follow-up.
# DM-II, with hyperglycemia
Cont ISS coverage
A1C on 04/28 was 7.1%.
DM [employer]ATOR consulted overnight for hyperglycemia
# Asthma without Acute Exacerbation, Stable.
Continue home inhaler regimen.
Albuterol PRN.
# Obesity due to excess calories
BMI 34
Affects all aspects of care.
Encourage healthy diet and increased activity with goal of weight loss.
# Nocturnal home O2 use
Pt on 2L NC at night time
DVT Prophylaxis: SCDs
Code Status: Full
Anticipated Discharge: 24 - 48 hours
Subjective/Interval History
-
Date of Service: May 14, 2025
Objective Data
-
Labs:
Laboratory Results
05/13/25 05/14/25
21:29 04:17
WBC 10.2
Hgb 11.5 L
Hct 37.1
Plt Count 356
Sodium 133 L
Potassium 4.9
Chloride 102
Carbon Dioxide 26
BUN 10
Creatinine 0.5 L
Glucose 412 H 316 H
Calcium 9.0
Vital Signs:
Vital Signs
Temp Pulse Resp BP Pulse Ox
36.3 C 53 12 108/52 97
05/14/25 03:00 05/14/25 07:40 05/14/25 07:40 05/14/25 07:40 05/14/25 07:40
I&O
05/13/25 05/14/25 05/15/25
06:59 06:59 06:59
Intake Total 300 / 300 990 / 990
Output Total 375 / 375
Balance 300 / 300 615 / 615
Review of Systems
-
History Source: Patient
All other systems: Reviewed and negative
Physical Exam
-
General: Well Developed, Well Nourished, No Apparent Distress, Comfortable and Conversant
HEENT: Normocephalic, Atraumatic, Nose Appears Normal, Ears Appear Normal and Oxygen (2L NC night time use only)
Respiratory: Clear to Auscultation and Non Labored Respirations; Negative Accessory Resp Muscle Use
Cardiac: Regular Rhythm and S1/S2
GI: Soft, Nontender, Nondistended and Normal Bowel Sounds
Skin: Warm and Dry
Neuro: Awake, Alert and Oriented
Psych: Calm and Intact Judgement/Insight
Data Reviewed
-
CT Scan: Report Reviewed by me
Labs: Labs Reviewed by me
--- NOTE | 2025-05-14 08:20 | W.PN.CRS1 ---
Today's Communication / Plan
-
continue regular diet
IV abx
okay for heparin sq/lovenox dvt prophylaxis from our perspective
Assessment/Plan
-
59 yo female who recently underwent a robotic sigmoidectomy on 05/[address] Gallego, presents with RLQ pain and found to have an acute right proximal ureter rupture
05/13 - Right ureter stent placement
Plan:
-Continue on regular diet
-On rocephin IV q 24 hours
-Trend labs/vitals - WBC 13.1, tmax 100.2
-No plans for surgery from a colorectal standpoint. Imaging reviewed with Dr. Strong.
-Urine cx pending
-OR pathology from surgery on 05/06
-Recommend lovenox 40meq daily for DVT prophylaxis if okay with urology.
-Discussed above with patient
-Daily dressing changes of RLQ
Subjective Data
Procedure
1) robotic sigmoidectomy 2) extensive lysis of adhesions 3) drainage pelvic abscess 4) repair serosal rent 5) flexible sigmoidectomy on 05/06/25
Subjective Data
Date of Service: May 14, 2025
Patient states she feels a little sore but her pain is controlled. Denies nausea or vomiting. She has flatus and bowel movements.
Objective Data
-
Vital Signs
Temp Pulse Resp BP Pulse Ox
97.4 F 53 12 108/52 97
05/14/25 03:00 05/14/25 07:40 05/14/25 07:40 05/14/25 07:40 05/14/25 07:40
Intake & Output
05/13/25 05/14/25 05/15/25
06:59 06:59 06:59
Intake Total 300 / 300 990 / 990
Output Total 375 / 375
Balance 300 / 300 615 / 615
Intake:
Oral fluids 990 / 990
IV fluids (Total) 300 / 300
Output:
Urine, Voided 375 / 375
Other:
Number of approximated MODERATE 1 1
amounts of urine
Lab Results
05/14/25 04:17
05/14/25 04:17
Physical Exam
-
General: No Acute Distress and AOx3
Abdomen: Soft, Non Distended, Non Tender and Other (RLQ incision healing as expected)
Skin: Warm and Dry
Wound: Dressing in Place
Incision: Clear, Dry, Intact
--- NOTE | 2025-05-14 08:55 | W.PN.URO.CBU ---
Today's Communication / Plan
-
NA
Assessment / Plan
-
59F with diverticulitis s/p robotic sigmoidectomy with Dr. Gallego and bilateral ureteral catheter placement by Dr. Hills 05/06/25 who presents with 1 week delayed presentation of R proximal ureteral injury. Likely due to ureteral catheter
placement given proximal nature of injury
POD1 s/p R ureteral stent placement. No overt extravasation seen on retrograde pyelogram. Doing well post-op.
Plan:
- OK for discharge from urologic standpoint
- F/u UCx - NGTD
- Upon discharge, provide pt with a few days of abx
- Plan for outpatient follow up in 3-4 weeks for stent removal in the office -- discussed with patient. Our office will reach out to schedule this
Diagnosis
-
Date of Service: May 14, 2025
-
Patient Diagnosis: right ureteral injury
Post Op Day: 1
Subjective
-
Doing well this morning
No flank pain, nausea/vomiting/fevers
AFVSS
WBC down-trending
UCx pending
Objective
-
Vital Signs
Temp Pulse Resp BP Pulse Ox
97.4 F 53 12 108/52 97
05/14/25 03:00 05/14/25 07:40 05/14/25 07:40 05/14/25 07:40 05/14/25 07:40
Intake and Output
05/13/25 05/14/25 05/15/25
06:59 06:59 06:59
Intake Total 300 / 300 990 / 990
Output Total 375 / 375
Balance 300 / 300 615 / 615
Intake:
Oral fluids 990 / 990
IV fluids (Total) 300 / 300
Output:
Urine, Voided 375 / 375
Other:
Number of approximated MODERATE 1 1
amounts of urine
Laboratory Results
05/14/25 04:17
05/14/25 04:17
Physical Exam
-
General - well developed, well nourished, no acute distress
Chest - clear bilaterally
Abdomen - soft, non-tender, positive bowel sounds, no CVAT, no incisional pain or distention
Neuro - AOx3
Care Review
Data Reviewed
Discussed with: Hospitalist
--- NOTE | 2025-05-14 09:40 | PN.DE.MGMTRT ---
Insulin Management
- -
05/14/2025: Diabetes Management Consult
60 year old female with PMH: Diverticulitis s/p robotic sigmoidectomy with Dr. Gallego and bilateral ureteral catheter placement by Dr. Hills 05/06/25 who presents with 1 week delayed presentation of R proximal ureteral injury. She had right
flank/lower abdominal pain [address] A/P with contrast (Reviewed by me) - shows mild R hydronephrosis with contrast extravasation at the R proximal ureter, consistent with ureteral injury.
Glucose was 316 on admission. Was taking glyburide/Metformin TID. Routinely sees Endo at [facility] in [place]. A1C 7.1, Cr 0.5, eGFR >60
Pt awake, alert, oriented, sitting up in bed, offers no complaints, able to discuss diabetes care plan.
States she monitors her blood sugars TID, numbers are usually in range of 125 to 145. States she doesn't eat much carbs due to her chronic GI issues
Glucose has been elevated since admission, trended up to 407 @ HS, down o 351 @ 3AM.
Of note pt's home regimen was not resumed on admission. She is currently on corrective insulin only
Her appetite is at baseline and she id currently eating breakfast.
Will resume her home meds- Glyburide 5mg BID and Metformin 1000mg BID. Will give 1 time dose of Lantus 15 units.
After further discussion with pt, it was determined that she takes Metformin 250mg TID and Glyburide 2.5mg TID, explained to pt that both meds will be resumed but at BID schedule and not TID.
Will change to Metformin 500mg BID and Glyburide 2.5mg BID.
Pt states she has a glucose monitor and enough supplies at home
Diabetes History
- -
Type of Diabetes: 2
Pre-Admission Diabetes Regimen
05/14/25
04:17
Creatinine 0.5 L
Insulin Pump Settings
IP Diabetes Regimen
05/13/25 05/13/25 05/13/25
13:40 16:21 17:43
Glucose
POC Glucose 189 H 166 H 192 H
05/13/25 05/13/25 05/13/25
21:14 21:29 23:12
Glucose 412 H
POC Glucose 407 H 393 H
05/14/25 05/14/25 05/14/25
03:04 04:17 05:04
Glucose 316 H
POC Glucose 351 H 323 H
05/14/25
07:51
Glucose
POC Glucose 288 H
Patient Education
[2025-05-14] MEDS: LANTUS 0.15 UNITS SC (10:09)
[2025-05-14] MEDS: GLUCOPHAGE 1000 MG PO (10:09)
[2025-05-14] MEDS: MICRONASE 5 MG PO (10:09)
[2025-05-14] MEDS: NOVOLOG FLEXPEN-LOW RESISTANCE 2 UNITS SC (10:16)
[2025-05-14 10:19] LABS: Glucose - Point of Care 240 mg/dl (70-99)
[2025-05-14 13:24] LABS: Glucose - Point of Care 259 mg/dl (70-99)
[2025-05-14] MEDS: NOVOLOG FLEXPEN-LOW RESISTANCE 3 UNITS SC (13:38)
--- NOTE | 2025-05-14 15:38 | W.DCSUMMARY ---
Discharge Summary
Discharge Data
Date of Admission: 05/13/25
Date of Discharge: 05/14/25
Total time spent discharging patient (in min): 40
-
Pending Results: No
Hospital Course
Principal Diagnosis:
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
Chronic Diagnoses:�
# Recent Robotic Sigmoid Resection 05/06/25 for recurrent diverticulitis, stable.
# DM-II, A1C on 04/28 was 7.1%.
# Asthma without Acute Exacerbation, Stable.
# Obesity due to excess calories, BMI 34
# Nocturnal home O2 use at 2L NC
Consultations:�
Urology
Colorectal surgery
Diabetes nurse practitioner
Procedures:�
R ureteral stent placement
Clinical course:�
This is a 59-year-old female with past medical history of stated above, who presented with right upper quadrant/right flank pain.
Her admission CT abdomen pelvis noted ACUTE RIGHT PROXIMAL URETERAL RUPTURE with extravasation of excreted contrast material into the right retroperitoneum filling a 6 cm URINOMA. Mild distention of the right intrarenal collecting system proximal to
the rupture.
Problem 1:
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
She is doing well postop and can follow-up with urology outpatient.
Her urine culture grew mixed sandra. She received ceftriaxone x 2 days while in the hospital, and was discharged with oral cefdinir for 3 more days following discharge.
As for the rest of her medical problems, they were stable during her hospital stay.
Discharge Plan
-
Patient Disposition: Home (Routine Discharge)
Discharge Diagnosis/Procedures: Acute Right Proximal Ureter Rupture with urinoma status post OR 05/13 R ureteral stent placement.
Condition: Fair
Diet: As tolerated and Diabetic, Carb Controlled
Activity: As tolerated
Driving Restrictions: Not until seen by your Dr
Referrals:
Nahun Gallego MD [Active, ColoRectal] - in two weeks
UNKNOWN - PT DOES,NOT KNOW [Family Provider] - in less than 1 week
Additional Discharge Medication Instructions: Continue cefdinir for 3 more days
Prescriptions:
New
cefdinir 300 mg capsule
300 mg PO Q12H 3 Days Qty: 6 0RF
Continued
alprazolam [Xanax] 0.25 mg Tablet
0.25 mg PO HS
fluticasone furoate-vilanterol [Breo Ellipta] 100-25 mcg/dose Blister With Device
1 inh INHALATION R DAILYPRN PRN (Reason: SOB)
glyburide-metformin 1.25-250 mg Tablet
1 tab PO .WITH MEALS
albuterol sulfate 90 mcg/actuation Hfa Aerosol Inhaler
1 inh INHALATION ONCE PRN (Reason: sob)
oxycodone 5 mg Tablet
5 mg PO DAILY PRN (Reason: pain)
Vitamin C
1 tab PO PRN PRN (Reason: takes when she feels like she is sick)
magnesium
1 cap PO DAILY
multivitamin
1 unit PO DAILY
oxycodone 5 mg tablet
5 mg PO Q6H PRN (Reason: Pain) Qty: 20 0RF
Discharge Orders:
Discharge Patient (As Directed); Ordered 05/14/25
Ordered By: Angela Yates
Discharge Date and Time
Print Language: UKRAINIAN
[2025-05-14 17:10] LABS: Glucose - Point of Care 101 mg/dl (70-99)
[2025-05-14] MEDS: GLUCOPHAGE 500 MG PO (17:44)
[2025-05-14] MEDS: MICRONASE 2.5 MG PO (17:44)
--- NOTE | 2025-05-14 18:26 | CM ---
F/U: Patient discharging so alerted César via the [employer] and text to Tanika at [facility]. Patient is calling her son to pick her up. PLAN: Home with [facility].
--- NOTE | 2025-05-14 19:27 | PTCARENOTE ---
Orders in for discharge. Discharge instructions given by day shift RN per report. Dressings given to pt for home care by day shift RN. VSS. INT removed. Pt and all belongings transported to main lobby by PCT where pt's son will be meet them.
== END 2025-05-14 19:29 | disposition home health service (06) | DRG 661 ==
LOC: IMU 01:15
PROVIDERS: Student in an Organized Health Care Education/Training Program; Surgery; ADMITTING PHYSICIAN Hospitalist; ATTENDING PHYSICIAN Internal Medicine; CONSULT PHYSICIAN Student in an Organized Health Care Education/Training Program; EMERGENCY PHYSICIAN Emergency Medicine; OTHER PHYSICIAN Surgery
PROC: 0T768DZ Dilation of Right Ureter with Intraluminal Device, Via Natural or Artificial Opening Endoscopic (ICD-10-PCS; 2025-05-13)
DX: S37.10XA Unspecified injury of ureter, initial encounter (principal); Z87.891 Personal history of nicotine dependence; Z79.84 Long term (current) use of oral hypoglycemic drugs; E11.9 Type 2 diabetes mellitus without complications; E66.09 Other obesity due to excess calories; Z68.34 Body mass index [BMI] 34.0-34.9, adult; J45.909 Unspecified asthma, uncomplicated; Y84.8 Other medical procedures as the cause of abnormal reaction of the patient, or of later complication, without mention of misadventure at the time of the procedure
CPT/HCPCS: 74177; 74420; 76000; 80048; 80053; 81003; 81015; 82947; 82962; 83605; 83690; 83735; 85025; 85027; 87086; 97163; 97166; 99285; A4300; C2617; Q9967

== ENCOUNTER 2025-06-17 06:30 | Day surgery (SDC) | payer OTHER, SELFPAY ==
[2025-06-17 12:15] VITALS: BP 130/58
[2025-06-17 12:23] VITALS: BMI 31.9
[2025-06-17 12:53] LABS: Glucose - Point of Care 169 mg/dl (70-99)
[2025-06-17] MEDS: NORMOSOL-R/PLASMALYTE-A 1000 IV (13:01)
--- NOTE | 2025-06-17 14:35 | W.SUR.PREOP ---
Pre-Operative Surgical Note
-
I have examined this patient prior to the performance of the scheduled procedure.
The patient's condition is unchanged from the time of the current History and
Physical and the patient is able to undergo the scheduled procedure.
[2025-06-17 15:21] VITALS: BP 112/63
[2025-06-17 15:30] VITALS: BP 123/66
[2025-06-17 15:45] VITALS: BP 121/60
[2025-06-17 16:00] VITALS: BP 115/60
== END 2025-06-17 16:55 | disposition home or self-care (01) ==
LOC: SDS 06:30
PROVIDERS: ATTENDING PHYSICIAN Student in an Organized Health Care Education/Training Program
DX: N30.90 Cystitis, unspecified without hematuria (principal); S37.10XA Unspecified injury of ureter, initial encounter; X58.XXXA Exposure to other specified factors, initial encounter
CPT/HCPCS: 52310; 82962